=== PATIENT | female | born 1960 | race Caucasian/White ===

== ENCOUNTER → 2016-09-08 | Outpatient (CLI) | payer OTHER ==
--- NOTE | 2016-09-08 16:36 | BD ---
EXAMINATION TYPE: MG DEXA axial skeleton. DATE OF EXAM: 09/08/2016 3:28 PM COMPARISON: NONE CLINICAL HISTORY: 56-year-old female with disorder of bone, postmenopausal screening Height: 61 Weight: 170.2 FRAX RISK QUESTIONS: Alcohol (3 or more units per day): no Family History (Parent hip fracture): no Glucocorticoids (More than 3mos): no (Ex: prednisone, prednisolone, methylprednisolone, dexamethasone, and hydrocortisone). History of Fracture in Adulthood: yes Secondary Osteoporosis: 1. Type 1 Diabetes: no 2. Hyperthyroidism: no 3. Menopause before 45: no 4. Malnutrition: no 5. Chronic liver disease: no Rheumatoid Arthritis: no Current Tobacco Use: no RISK FACTORS HISTORY OF: Hip Fracture (Right/Left): no Spine Fracture: no History of Wrist Fracture: no Surgery to Spine/Hip(right/left)/Wrist (right/left): no Family History of Osteoporosis: yes Active: no Diet low in dairy products/other sources of calcium: yes Postmenopausal woman: hysterectomy 7 years ago Take estrogen and/or progesterone medications: yes/ estrodiol How lon Lost more than 2 inches in height since high school: no Frequent falls: no Adrenal Insufficiency: no MEDICATIONS: Thyroid Medications: synthroid 200mcg How Lon years Additional History: pt has had thyroid cancer 7 years ago EXAM MEASUREMENTS: Bone mineral densitometry was performed using the [employer] System. Bone mineral density as measured about the Lumbar spine is: ----- L1-L4(G/cm2): 1.110 T Score Values are as follows: ----- L2: -0.9 ----- L3: 0.0 ----- L4: -0.2 ----- L1-L4: -0.6 Bone mineral density has: increased 8.4 % since study of: 06.19.2013 Bone mineral density about the R hip (g/cm2): 0.883 Bone mineral density about the L hip (g/cm2): 0.973 T Score values are as follows: -----R Neck: -1.1 -----L Neck: -0.5 -----R Intertrochanter: -1.1 -----L Intertrochanter: -0.9 Bone mineral density has: increased 0.8 % since study of: 06.19.2013 IMPRESSION: Osteopenia as indicated by T score values in the lumbar spine and right hip. There is slightly increa sed risk for fracture and therapy can be considered. Rescreen in 2-5 years. NOTE: T-SCORE=SD OF THE YOUNG ADULT MEAN.
--- NOTE | 2016-09-09 14:36 | MM ---
Reason for exam: screening (asymptomatic). Last mammogram was performed 1 year and 2 months ago. History: Patient is postmenopausal and has history of other cancer at age 49. Family history of breast cancer in paternal grandmother at age 84. Taking estrogen for 5 years beginning at age 49. Taking other hormone for 2 years. Physical Findings: A clinical breast exam by your physician is recommended on an annual basis and results should be correlated with mammographic findings. MG Screening Mammo w CAD Bilateral CC and MLO view(s) were taken. Prior study comparison: July 03, 2015, bilateral MG screening mammo w CAD. July 12, 2014, left breast MG work up mamm w CAD LT. Finding: There is a 10 mm equal density (isodense) mass in the upper outer quadrant of the right breast. ASSESSMENT: Incomplete: need additional imaging evaluation, BI-RAD 0 RECOMMENDATION: Special view mammogram of the right breast. If lesion persists on supplemental views, image directed ultrasound is recommended. [facility] will attempt to contact patient to return for supplemental views and ultrasound if indicated.
== END ==
LOC: RADMAMWWP 14:50
PROVIDERS: ATTEND Obstetrics & Gynecology
DX: Z12.31 Encounter for screening mammogram for malignant neoplasm of breast (principal); M85.851 Other specified disorders of bone density and structure, right thigh; M85.88 Other specified disorders of bone density and structure, other site
CPT/HCPCS: 77080; G0202

== ENCOUNTER → 2016-09-17 | Outpatient (CLI) | payer OTHER ==
--- NOTE | 2016-09-20 08:19 | MM ---
Reason for exam: additional evaluation requested from abnormal screening. Last mammogram was performed less than 1 month ago. History: Patient is postmenopausal and has history of other cancer at age 49. Family history of breast cancer in paternal grandmother at age 84. Taking estrogen for 5 years beginning at age 49. Taking other hormone for 2 years. Physical Findings: Nurse did not find any significant physical abnormalities on exam. MG Work Up Mamm w CAD RT Spot compression CC and spot compression MLO view(s) were taken of the right breast. Prior study comparison: September 08, 2016, bilateral MG screening mammo w CAD. July 03, 2015, bilateral MG screening mammo w CAD. There are scattered fibroglandular densities. There is no discrete abnormality including area of concern. No significant new findings when compared with previous films. These results were verbally communicated with the patient and result sheet given to the patient on 09/17/16. ASSESSMENT: Benign, BI-RAD 2 RECOMMENDATION: Return to routine screening mammogram schedule for both breasts.
== END | disposition home or self-care (01) ==
LOC: RADMAMWWP 13:03
PROVIDERS: ATTEND Obstetrics & Gynecology
DX: R92.8 Other abnormal and inconclusive findings on diagnostic imaging of breast (principal)

== ENCOUNTER → 2017-10-03 | Outpatient (CLI) | payer OTHER ==
--- NOTE | 2017-10-04 08:57 | MM ---
Reason for exam: screening (asymptomatic). Last mammogram was performed 1 year and 1 month ago. History: Patient is postmenopausal and has history of other cancer at age 49. Family history of breast cancer in paternal grandmother at age 84. Taking estrogen for 5 years beginning at age 49. Taking other hormone for 2 years. Physical Findings: A clinical breast exam by your physician is recommended on an annual basis and results should be correlated with mammographic findings. MG Screening Mammo w CAD Bilateral CC and MLO view(s) were taken. Prior study comparison: September 17, 2016, right breast MG work up mamm w CAD RT. September 08, 2016, bilateral MG screening mammo w CAD. There are scattered fibroglandular densities. There is no discrete abnormality. No significant changes when compared with prior studies. ASSESSMENT: Negative, BI-RAD 1 RECOMMENDATION: Routine screening mammogram of both breasts in 1 year.
== END | disposition home or self-care (01) ==
LOC: RADMAMWWP 08:04
PROVIDERS: ATTEND Obstetrics & Gynecology
DX: Z12.31 Encounter for screening mammogram for malignant neoplasm of breast (principal)
CPT/HCPCS: 77067

== ENCOUNTER → 2018-10-20 | Outpatient (CLI) | payer OTHER ==
--- NOTE | 2018-10-24 08:32 | MM ---
Reason for exam: screening (asymptomatic). Last mammogram was performed 1 year and 1 month ago. History: Patient is postmenopausal and has history of other cancer at age 49. Family history of breast cancer in paternal grandmother at age 84. Taking estrogen for 5 years beginning at age 49. Taking other hormone for 2 years. Physical Findings: A clinical breast exam by your physician is recommended on an annual basis and results should be correlated with mammographic findings. MG Screening Mammo w CAD Bilateral CC and MLO view(s) were taken. Prior study comparison: October 03, 2017, bilateral MG screening mammo w CAD. September 17, 2016, right breast MG work up mamm w CAD RT. There are scattered fibroglandular densities. No significant changes when compared with prior studies. ASSESSMENT: Negative, BI-RAD 1 RECOMMENDATION: Routine screening mammogram of both breasts in 1 year.
== END | disposition home or self-care (01) ==
LOC: RADMAMWWP 12:35
PROVIDERS: ATTEND Obstetrics & Gynecology
DX: Z12.31 Encounter for screening mammogram for malignant neoplasm of breast (principal)
CPT/HCPCS: 77067

== ENCOUNTER → 2019-04-03 | Outpatient (CLI) | payer OTHER | END | disposition home or self-care (01) | LOC: CPPFTMAIN 13:21 | PROVIDERS: ATTEND Internal Medicine Rheumatology | DX: M34.9 Systemic sclerosis, unspecified (principal) | CPT/HCPCS: 94060; 94726; 94729 ==

== ENCOUNTER → 2020-04-01 | Outpatient (CLI) | payer OTHER ==
--- NOTE | 2020-04-01 17:29 | BD ---
EXAMINATION TYPE: Axial Bone Density DATE OF EXAM: 04/01/2020 COMPARISON: 09/08/2016 CLINICAL HISTORY: Height: 61 IN Weight: 163 LBS FRAX RISK QUESTIONS: Family History (Parent hip fracture): YES MOTHER RISK FACTORS HISTORY OF: Family History of Osteoporosis: YES 2 SISTERS Active: YES Diet low in dairy products/other sources of calcium: Postmenopausal woman: AGE 49 TOTAL HYST Take estrogen and/or progesterone medications: YES How long: SINCE AGE 49 MEDICATIONS: Thyroid Medications: YES Which medication: Synthroid How Lon YEARS Additional Medications: CALCIUM, VIT D, SYNTHROID, MELOXICAM,GABAPENTIN, PRILOSEC, CYMBALTA, ESTRADIO L, EVOXAC, DOXYCYCLINE, AMLODIPINE, ROSUVASTATIN, ISOSORB MONO E, IRON Additional History: THYROID CANCER WITH RADIOACTIVE IODINE 2009 EXAM MEASUREMENTS: Bone mineral densitometry was performed using the [employer] System. Bone mineral density as measured about the Lumbar spine is: ----- L1-L4(G/cm2): 1.073 T Score Values are as follows: ----- L2: -1.0 ----- L3: -0.3 ----- L4: -1.3 ----- L1-L4: -0.9 Bone mineral density has: Decreased -5.5% since study of: 09/08/2016 Bone mineral density about the R hip (g/cm2): 0.864 Bone mineral density about the L hip (g/cm2): 0.907 T Score values are as follows: -----R Neck: -1.3 -----L Neck: -0.9 -----R Total: -1.1 -----L Total: -0.8 Bone mineral density has: Decreased -2.9% since study of: 09/08/2016 IMPRESSION: Osteopenia (T Score between -2.5 and -1). There is slightly increased risk of fracture and the patient may be considered for treatment. Re-Screen 2-5 years. NOTE: T-SCORE=SD OF THE YOUNG ADULT MEAN.
--- NOTE | 2020-04-02 10:12 | MM ---
Reason for exam: screening (asymptomatic). Last mammogram was performed 1 year and 5 months ago. History: Patient is postmenopausal and has history of other cancer at age 49. Family history of breast cancer in paternal grandmother at age 84. Taking estrogen for 5 years beginning at age 49. Taking other hormone for 2 years. Physical Findings: A clinical breast exam by your physician is recommended on an annual basis and results should be correlated with mammographic findings. MG Screening Mammo w CAD Bilateral CC and MLO view(s) were taken. Prior study comparison: October 20, 2018, bilateral MG screening mammo w CAD. October 03, 2017, bilateral MG screening mammo w CAD. The breast tissue is heterogeneously dense. This may lower the sensitivity of mammography. There is chronic nodularity in the right breast. There is no dominant lesion. No significant changes when compared with prior studies. ASSESSMENT: Benign, BI-RAD 2 RECOMMENDATION: Routine screening mammogram of both breasts in 1 year.
== END | disposition home or self-care (01) ==
LOC: RADMAMWWP 08:52
PROVIDERS: ATTEND Obstetrics & Gynecology
DX: Z12.31 Encounter for screening mammogram for malignant neoplasm of breast (principal); M85.80 Other specified disorders of bone density and structure, unspecified site
CPT/HCPCS: 77067; 77080

== ENCOUNTER → 2020-12-09 | Outpatient (CLI) | payer OTHER ==
--- NOTE | 2020-12-10 08:15 | US ---
EXAMINATION TYPE: US venous doppler duplex LE LT DATE OF EXAM: 12/09/2020 6:04 PM COMPARISON: NONE CLINICAL HISTORY: Pain in Left Knee, Phlebitis. Pain and swelling within left leg after injury yester day 12/08/2020. No hx of DVT. Patient not taking blood thinners. SIDE PERFORMED: Left TECHNIQUE: The lower extremity deep venous system is examined utilizing real time linear array sonog noam with graded compression, doppler sonography and color-flow sonography. VESSELS IMAGED: Common Femoral Vein Deep Femoral Vein Greater Saphenous Vein * Femoral Vein Popliteal Vein Small Saphenous Vein * Proximal Calf Veins (* superficial vessels) Left Leg: No evidence of DVT in veins imaged at this time. IMPRESSION: 1. Left lower extremity ultrasound negative for deep venous thrombosis.
== END ==
LOC: RADUSWWP 17:28
PROVIDERS: ATTEND Orthopaedic Surgery
DX: I82.402 Acute embolism and thrombosis of unspecified deep veins of left lower extremity (principal); M17.12 Unilateral primary osteoarthritis, left knee

== ENCOUNTER → 2021-05-04 | Outpatient (CLI) | payer OTHER ==
--- NOTE | 2021-05-05 11:06 | MM ---
Reason for exam: screening (asymptomatic). Last mammogram was performed 1 year and 1 month ago. History: Patient is postmenopausal and has history of other cancer at age 49. Family history of breast cancer in paternal grandmother at age 84. Taking estrogen for 5 years beginning at age 49. Taking other hormone for 2 years. Physical Findings: A clinical breast exam by your physician is recommended on an annual basis and results should be correlated with mammographic findings. MG Screening Mammo w CAD Bilateral CC and MLO view(s) were taken. Prior study comparison: April 01, 2020, bilateral MG screening mammo w CAD. October 20, 2018, bilateral MG screening mammo w CAD. October 03, 2017, bilateral MG screening mammo w CAD. There are scattered fibroglandular densities. There is no discrete abnormality. ASSESSMENT: Negative, BI-RAD 1 RECOMMENDATION: Routine screening mammogram of both breasts in 1 year.
== END | disposition home or self-care (01) ==
LOC: RADMAMWWP 13:16
PROVIDERS: ATTEND Obstetrics & Gynecology
DX: Z12.31 Encounter for screening mammogram for malignant neoplasm of breast (principal)
CPT/HCPCS: 77067

== ENCOUNTER → 2022-05-05 | Outpatient (CLI) | payer BC ==
--- NOTE | 2022-05-06 08:46 | MM ---
Reason for Exam: Screening (asymptomatic). Last screening mammogram was performed 12 month(s) ago. Patient History: Menarche at age 13. First Full-Term at age 24. Left ovary removed at age 25. Right ovary removed at age 49. Hysterectomy at age 49. Postmenopausal. Patient has history of breast feeding. Other cancer, age 49. Currently using Estrogen, beginning at age 49 for 5 years. Paternal grandmother had breast cancer, age 84. Risk Values: Niurka 5 year model risk: 1.3%. NCI Lifetime model risk: 6.6%. Prior Study Comparison: 07/02/2014 Bilateral Screening Mammogram, [facility]. 07/12/2014 Left Diagnostic Mammogram, [facility]. 07/03/2015 Bilateral Screening Mammogram, [facility]. 09/08/2016 Bilateral Screening Mammogram, [facility]. 10/03/2017 Bilateral Screening Mammogram, [facility]. 10/20/2018 Bilateral Screening Mammogram, [facility]. 04/01/2020 Bilateral Screening Mammogram, [facility]. 05/04/2021 Bilateral Screening Mammogram, [facility]. Tissue Density: The breast tissue is heterogeneously dense. This may lower the sensitivity of mammography. Findings: Analyzed By CAD. There is no suspicious group of microcalcifications or new suspicious mass in either breast. No significant change from prior exams. Overall Assessment: Negative, BI-RAD 1 Management: Screening Mammogram of both breasts in 1 year. A clinical breast exam by your physician is recommended on an annual basis and results should be correlated with mammographic findings. Electronically signed and approved by: Antoni Joy D.O.
== END | disposition home or self-care (01) ==
LOC: RADMAMWWP 14:14
PROVIDERS: ATTEND Obstetrics & Gynecology
DX: Z12.31 Encounter for screening mammogram for malignant neoplasm of breast (principal)
CPT/HCPCS: 77067

== ENCOUNTER → 2023-05-09 | Outpatient (CLI) | payer BC ==
--- NOTE | 2023-05-09 14:45 | BD ---
EXAMINATION TYPE: Axial Bone Density DATE OF EXAM: 05/09/2023 CLINICAL HISTORY: 62 years old Female. ICD-10 CODE: M85.88 OSTEOPENIA Height: 61 Weight: 157.3 FRAX RISK QUESTIONS: Alcohol (3 or more units per day): no Family History (Parent hip fracture): no Glucocorticoids (More than 3mos): no History of Fracture in Adulthood: yes Secondary Osteoporosis: 1. Type 1 Diabetes: no 2. Hyperthyroidism: no 3. Menopause before 45: no 4. Malnutrition: no 5. Chronic liver disease: no Rheumatoid Arthritis: no Current Tobacco Use: no RISK FACTORS HISTORY OF: Hip Fracture (Right/Left): no Spine Fracture: no History of Wrist Fracture: no Surgery to Spine/Hip(right/left)/Wrist (right/left): no Family History of Osteoporosis: Sister Active: no Diet low in dairy products/other sources of calcium: yes Postmenopausal woman: yes Take estrogen and/or progesterone medications: Estradial How long: Past 23 years Lost more than 2 inches in height since high school: yes Frequent falls: yes Poor Health: yes Hyperparathyroidism: thyroid removed due to 2009 Adrenal Insufficiency: no MEDICATIONS: Prednisone or other steroids: no Thyroid Medications: Synthyroid How Long: since 2009 Osteoporosis Medications: no Additional Medications: Cholesterol meds, BP Meds, Reflux Meds, Vit D. Citracal, Additional History: EXAM MEASUREMENTS: Bone mineral densitometry was performed using the [employer] System. Bone mineral density as measured about the Lumbar spine is: ----- L1-L4(G/cm2): 0.972 T Score Values are as follows: ----- L1: -1.7 ----- L2: -1.7 ----- L3: -1.6 ----- L4: -2.0 ----- L1-L4: -1.7 Z Score Values are as follows: ----- L1: -0.6 ----- L2: -0.6 ----- L3: -0.5 ----- L4: -0.9 ----- L1-L4: -0.6 Bone mineral density has: decreased -9.4 % since study of: 04/01/2020 Bone mineral density about the R hip (g/cm2): 0.889 Bone mineral density about the L hip (g/cm2): 0.921 T Score values are as follows: -----R Neck: -0.6 -----L Neck: -0.4 -----R Total: -0.9 -----L Total: -0.7 Z Score values are as follows: -----R Neck: 0.6 -----L Neck: 0.7 -----R Total: -0.1 -----L Total: 0.2 Bone mineral density has: increased 1.8 % since study of: 04/01/2020 FRAX%s: The graph provided illustrates a 22.7% chance for a major osteoporotic fx and a 0.5% chance f or the hips probability for fx in 10 years time. IMPRESSION: Osteopenia (T Score between -2.5 and -1). There is slightly increased risk of fracture and the patient may be considered for treatment. Re-Screen 2-5 years. NOTE: T-SCORE=SD OF THE YOUNG ADULT MEAN.
--- NOTE | 2023-05-10 18:46 | MM ---
Reason for Exam: Screening (asymptomatic). Last screening mammogram was performed 12 month(s) ago. Patient History: Menarche at age 13. First Full-Term at age 24. Left ovary removed at age 25. Right ovary removed at age 49. Hysterectomy at age 49. Postmenopausal. Patient has history of breast feeding. Other cancer, age 49. Currently using Estrogen, beginning at age 49 for 5 years. Paternal grandmother had breast cancer, age 84. Risk Values: Niurka 5 year model risk: 1.3%. NCI Lifetime model risk: 6.4%. Prior Study Comparison: 04/01/2020 Bilateral Screening Mammogram, [facility]. 05/04/2021 Bilateral Screening Mammogram, [facility]. 05/05/2022 Bilateral MG screening mammo w CAD, [facility]. Tissue Density: There are scattered fibroglandular densities. Findings: Analyzed By CAD. Grouped microcalcifications posterior upper outer quadrant left breast appear new. Further magnification views are recommended. Otherwise, no significant change. Overall Assessment: Incomplete: need additional imaging evaluation, BI-RAD 0 Management: Special View Mammogram of the left breast. To include mag CC, mag lateral, and 3-D lateral views (including far posterior tissues). [facility] will attempt to contact patient to return for supplemental views and ultrasound if indicated. Electronically signed and approved by: David Melgoza M.D. Radiologist
== END | disposition home or self-care (01) ==
LOC: RADMAMWWP 13:02
PROVIDERS: ATTEND Obstetrics & Gynecology
DX: Z12.31 Encounter for screening mammogram for malignant neoplasm of breast (principal); M85.88 Other specified disorders of bone density and structure, other site; Z78.0 Asymptomatic menopausal state; Z80.3 Family history of malignant neoplasm of breast
CPT/HCPCS: 77067; 77080

== ENCOUNTER → 2023-05-23 | Outpatient (CLI) | payer BC ==
--- NOTE | 2023-05-23 13:55 | MM ---
Reason for Exam: Additional evaluation requested from abnormal screening. Last screening mammogram was performed less than 1 month ago. Patient History: Menarche at age 13. First Full-Term at age 24. Left ovary removed at age 25. Right ovary removed at age 49. Hysterectomy at age 49. Postmenopausal. Patient has history of breast feeding. Other cancer, age 49. Currently using Estrogen, beginning at age 49 for 5 years. Paternal grandmother had breast cancer, age 84. Risk Values: Niurka 5 year model risk: 1.3%. NCI Lifetime model risk: 6.4%. Prior Study Comparison: 05/04/2021 Bilateral Screening Mammogram, [facility]. 05/05/2022 Bilateral MG screening mammo w CAD, [facility]. 05/09/2023 Bilateral MG screening mammo w CAD, [facility]. Tissue Density: Left: The breast tissue is heterogeneously dense. This may lower the sensitivity of mammography. Findings: Analyzed By CAD. Far posteriorly the upper outer quadrant left breast approximately 9 cm from the nipple there is an indeterminate heterogenous cluster of microcalcifications measuring 4 mm x 2 mm. Tissue diagnosis is recommended. Overall Assessment: Suspicious, BI-RAD 4 Management: Stereotactic Core Biopsy of the left breast. . Results were given to the patient verbally at the time of exam. Patient should continue monthly self-breast exams. A clinical breast exam by your physician is recommended on an annual basis. This exam should not preclude additional follow-up of suspicious palpable abnormalities. Note on Niurka scores and lifetime risk: 1. A Niurka score greater than 3% is considered moderate risk. If this is the case, consider specialist referral to assess eligibility for a risk reducing agent. 2. If overall lifetime risk for the development of breast cancer is 20% or higher, the patient may qualify for future screening with alternating mammogram and breast MRI. Electronically signed and approved by: Rocco Smith M.D. Radiologis
== END | disposition home or self-care (01) ==
LOC: RADMAMWWP 13:03
PROVIDERS: ATTEND Obstetrics & Gynecology
DX: R92.332 Mammographic heterogeneous density, left breast (principal); Z80.3 Family history of malignant neoplasm of breast; Z78.0 Asymptomatic menopausal state
CPT/HCPCS: 77061; 77065

== ENCOUNTER → 2023-05-30 | Day surgery (SDC) | payer BC ==
[2023-05-30 11:38] VITALS: BP 125/72; PULSE 71; RESP 13; TEMP 98.2
--- NOTE | 2023-06-06 11:20 | MM ---
Risk Values: Niurka 5 year model risk: 1.3%. NCI Lifetime model risk: 6.4%. Prior Study Comparison: 05/05/2022 Bilateral MG screening mammo w CAD, [facility]. 05/09/2023 Bilateral MG screening mammo w CAD, [facility]. 05/23/2023 Left MG 3D work up w/cad , [facility]. Pathology Description: Approach: CC FA Needle Type: Eviva Cores: 3 Skin Nicks: 1 Gauge: 9 The calcificationswithin the lefteast were targeted by the undersigned. Procedure was performed by the undersigned. Informed consent was obtained and all of the patients questions were answered. The standard sterile technique was utilized and appropriate local anesthesia was obtained with 1% lidocaine. Mammotome probe was advanced and multiple core samples were obtained and sent to pathology for interpretation. Microclip marker was deployed at the site of biopsy. Post procedural mammogram demonstrates appropriate deployment of radiopaque clip marker. The patient tolerated the procedure well and left the department in stable condition. Pathology results are pending. Impression: Successful stereotactic core biopsy left breast. Pathology Results: Result: Benign, Fibroadenomatoid hyperplasia. LEFT BREAST, STEREOTACTIC NEEDLE CORE BIOPSY: Fibroadenoma/fibroadenomatoid hyperplasia with calcifications and background fibrocystic changes. Overall Assessment: Benign Management: Diagnostic Mammogram of the left breast in 6 months. Electronically signed and approved by: Rocco Smith M.D. Radiologis
== END ==
LOC: RADMAMWWP 10:02
PROVIDERS: ATTEND Surgery
DX: D24.2 Benign neoplasm of left breast (principal)
CPT/HCPCS: 88305; 19081; J2001

== ENCOUNTER → 2023-12-14 | Outpatient (CLI) | payer BC ==
--- NOTE | 2023-12-14 10:17 | MM ---
Reason for Exam: Follow-up at short interval from prior study. Last screening mammogram was performed 8 month(s) ago. Patient History: Menarche at age 13. First Full-Term at age 24. Left ovary removed at age 25. Right ovary removed at age 49. Hysterectomy at age 49. Postmenopausal. Patient has history of breast feeding. Other cancer, age 49. Previous Hyperplasia w/o Atypia at age 62. Currently using Estrogen, beginning at age 49 for 5 years. 05/30/2023, Benign MG stereo VAD BX LT on the left side. Paternal grandmother had breast cancer, age 84. Risk Values: Niurka 5 year model risk: 1.6%. NCI Lifetime model risk: 7.3%. Prior Study Comparison: 05/05/2022 Bilateral MG screening mammo w CAD, [facility]. 05/09/2023 Bilateral MG screening mammo w CAD, [facility]. 05/23/2023 Left MG 3D work up w/cad LT, [facility]. Tissue Density: Left: There are scattered areas of fibroglandular density. Findings: Analyzed By CAD. Microclip posterior outer aspect left breast from recent biopsy 6 months ago. No significant change otherwise from prior exams. Overall Assessment: Benign, BI-RAD 2 Management: Screening Mammogram of both breasts in 5 months. Back on schedule. Results were given to the patient verbally at the time of exam. Patient should continue monthly self-breast exams. A clinical breast exam by your physician is recommended on an annual basis. This exam should not preclude additional follow-up of suspicious palpable abnormalities. Note on Niurka scores and lifetime risk: 1. A Niurka score greater than 3% is considered moderate risk. If this is the case, consider specialist referral to assess eligibility for a risk reducing agent. 2. If overall lifetime risk for the development of breast cancer is 20% or higher, the patient may qualify for future screening with alternating mammogram and breast MRI. Electronically signed and approved by: David Melgoza M.D. Radiologist
== END | disposition home or self-care (01) ==
LOC: RADMAMWWP 09:45
PROVIDERS: ATTEND Surgery
DX: R92.322 Mammographic fibroglandular density, left breast (principal); Z80.3 Family history of malignant neoplasm of breast; Z78.0 Asymptomatic menopausal state
CPT/HCPCS: 77061; 77065

== ENCOUNTER → 2024-05-16 | Outpatient (CLI) | payer BC ==
--- NOTE | 2024-05-24 11:50 | MM ---
Reason for Exam: Screening (asymptomatic). Last mammogram was performed 1 year(s) and 1 month(s) ago. Patient History: Menarche at age 13. First Full-Term at age 24. Left ovary removed at age 25. Right ovary removed at age 49. Hysterectomy at age 49. Postmenopausal. Patient has history of breast feeding. Other cancer, age 49. Previous Hyperplasia w/o Atypia at age 62. Currently using Estrogen, beginning at age 49 for 5 years. 05/30/2023, Benign MG stereo VAD BX LT on the left side. Paternal grandmother had breast cancer, age 84. Risk Values: Niurka 5 year model risk: 1.6%. NCI Lifetime model risk: 7.3%. Prior Study Comparison: 05/09/2023 Bilateral MG screening mammo w CAD, [facility]. 05/23/2023 Left MG 3D work up w/cad LT, [facility]. 12/14/2023 Left MG 3D diag mammo w/cad LT, [facility]. Tissue Density: There are scattered areas of fibroglandular density. Findings: Analyzed By CAD. Right breast: There is no suspicious group of microcalcifications or new suspicious mass. Left breast: There is no suspicious group of microcalcifications or new suspicious mass. Overall Assessment: Negative, BI-RAD 1 Management: Screening Mammogram of both breasts in [address] [facility] will attempt to contact patient to return for supplemental views and ultrasound if indicated. Patient should continue monthly self-breast exams. A clinical breast exam by your physician is recommended on an annual basis. This exam should not preclude additional follow-up of suspicious palpable abnormalities. Note on Niurka scores and lifetime risk: 1. A Niurka score greater than 3% is considered moderate risk. If this is the case, consider specialist referral to assess eligibility for a risk reducing agent. 2. If overall lifetime risk for the development of breast cancer is 20% or higher, the patient may qualify for future screening with alternating mammogram and breast MRI. [facility], , 05/24/2024 11:45 AM. Electronically signed and approved by: Justin Scott DO
== END | disposition home or self-care (01) ==
LOC: RADMAMWWP 10:04
PROVIDERS: ATTEND Surgery
DX: Z12.31 Encounter for screening mammogram for malignant neoplasm of breast (principal); R92.323 Mammographic fibroglandular density, bilateral breasts; Z78.0 Asymptomatic menopausal state; Z80.3 Family history of malignant neoplasm of breast; Z90.722 Acquired absence of ovaries, bilateral
CPT/HCPCS: 77067

== ENCOUNTER 2024-06-14 11:14 | Day surgery (SDC) | payer BC ==
[~2024-06-14 11:14] MED LIST: LACTATED RINGERS 1,000 ML IV SCH
--- NOTE | 2024-06-14 12:01 | CT ---
EXAMINATION TYPE: CT Chest [facility] protocol DATE OF EXAM: 06/14/2024 COMPARISON: None CLINICAL INDICATION: Female, 63 years old with history of R91.1 Solitary Pulmonary Nodule; PH[facility], preop /lung mass TECHNIQUE: CT scan of the thorax is performed without IV contrast. CT DLP: 227.[address] CTDI: mGy Automated exposure control for dose reduction was used. FINDINGS: There is a 13.2 mm spiculated mass in the left upper lobe highly suspicious for neoplasm. There is a secondary 7.2 mm nodular mass in the posterior left upper lobe. There are mild chronic changes with mild interstitial reticulation in the subpleural parenchymal lung of the lung bases. There is mild to moderate bronchiectasis in the lower lobes. There is no airspace consolidation. There is no pleural effusion. The great vessels chest are normal as no mediastinal, hilar or axillary adenopathy. There is mild to moderate cardiomegaly. Limited scanning through the upper abdomen reveals multiple well-circumscribed low density lesions wi thin the liver most likely representing simple cysts. There is cholecystectomy. The osseous structures are intact. IMPRESSION: 1. 2 left upper lobe pulmonary nodules that are highly suspicious for neoplasm. 2. Chronic interstitial lung changes with bronchiectasis predominantly within the lower lobes. 3. [id number] cardiomegaly. 4. No acute cardiopulmonary disease. [facility], , 06/14/2024 11:59 AM
[2024-06-14] MEDS: LACTATED RINGERS 1,000 ML IV SCH (12:22)
[2024-06-14] MEDS: IV FLUID CONTINUATION 1,000 ML IV ONE (12:22)
[2024-06-14] MEDS ORDERED: GLYCOPYRROLATE 0.2 MG/ML 2 ML VIAL ONE (12:25)
[2024-06-14] MEDS ORDERED: fentaNYL (PF) 50 MCG/ML 2 ML AMP ONE (12:25)
[2024-06-14] MEDS ORDERED: PROPOFOL 10 MG/ML 20 ML VIAL IV ONE (12:25)
[2024-06-14] MEDS ORDERED: MIDAZOLAM 2 MG/2 ML VIAL ONE (12:25)
[2024-06-14] MEDS ORDERED: SUCCINYLCHOLINE CHLORIDE 200 MG/10 ML VIAL IV ONE (12:25)
[2024-06-14] MEDS ORDERED: NEOSTIGMINE 1 MG/ML 10 ML VIAL ONE (12:25)
[2024-06-14] MEDS ORDERED: LIDOCAINE 1% INJ 10MG/ML (20 ML MDV) ONE (12:25)
[2024-06-14] MEDS ORDERED: ROCURONIUM 10 MG/ML (5 ML VIAL) IV ONE (12:25)
[2024-06-14] MEDS: LACTATED RINGERS 1,000 ML IV ONE ×2 (14:35→14:44)
--- NOTE | 2024-06-14 14:54 | P.PCN ---
Date of Procedure: 06/14/24 Operative Findings: Preoperative Diagnosis: Left upper lobe pulmonary nodule, 15 mm in size Mediastinal lymphadenopathy Postoperative Diagnosis: Left upper lobe pulmonary nodule Mediastinal lymphadenopathy Procedure(s) Performed: Flexible bronchoscopy Robotic-assisted bronchoscopy and addition to radial ultrasound evaluation of the left upper lobe pulmonary nodule Robotic-assisted transbronchial transbronchial needle aspirate, transbronchial biopsies and bronchoalveolar lavage of the left upper lobe pulmonary nodule Endobronchial ultrasound Transbronchial needle aspirate, paratracheal lymph node Anesthesia: MARIKAA Surgeon: Sherie Sumner Estimated Blood Loss (ml): 0 Pathology: other Condition: stable Disposition: same day Operative Findings: A physical exam was performed. Informed consent was obtained from the patient after explaining all the risks (pneumothorax, life threatening bleeding, infection and adverse effects due to medications), benefits and alternatives to the procedure which the patient appeared to understand and so stated. The patient was connected to the monitoring devices. General anesthesia was induced and the patient was intubated by anesthesia. A final timeout was performed and the procedure confirmed by the attending staff bronchoscopist. The bronchoscope was inserted and the airway examined. Airway examination shows that the distal trachea, Right upper lobe and middle lobe and lower lobe bronchi was all within normal limits. Patient left mainstem bronchus is within normal limits. Examination of left lower lobe was within normal limits. The left upper lobe bronchus and the lingular segment was also patent within normal limits. The flexible bronchoscope was removed and the robotic bronchoscope was inserted. Registration was completed. I next guided the robotic bronchoscope using the navigation system into the left upper lobe pulmonary nodule and the navigation was done through the apical posterior segment of the left upper lobe. Once in proper position, the bronchoscope was frozen. The radial EBUS probe was placed through the bronchoscope and confirmed abnormal u/s images vs normal lung. A needle was placed through the working channel and another fluoroscopic guidance, we sampled the area in the left upper lobe where the opacity was present. We then used a clot biopsy pattern with ultrasound confirmation for 2 additional passes with the needle. Following that, a forceps were next introduced through working channel and extended the appropriate distance and 2 transbronchial biopsies were performed using fluoroscopic guidance. The u/s probe was then reinserted to confirm location. When confirmed this process was repeated for a total of 8 transbronchial biopsies. Following that, a total of 20 cc of saline was infused into the right upper lobe and approximately 5 cc of saline was aspirated and the bronchioloalveolar lavage was sent for cytologic evaluation. Following that, I am bronchoscope was removed. The endobronchial ultrasound was inserted and a full evaluation of the mediastinal lymph nodes was done. Upon careful investigation with endobronchial ultrasound, a 16 x 10 mm anterior tracheal lymph node was identified. Using a 22-gauge position needle, transbronchial needle aspirate of the paratracheal station was done and a total of 5 passes was taken without any complications. Endobronchial ultrasound was removed. The rest of the mediastinal stations showed no significant pathologic mediastinal lymphadenopathy. Flex. bronchoscope was inserted and regular suctioning was done. At the completion of the procedure, no residual secretions or bloody material within the airway. The bronchoscope was removed. The patient was extubated. FINDINGS: 1. The airways appeared normal 2 Successful navigation, ultrasonographic identification, and biopsies of left upper lobe pulmonary nodule 3. The the radial ultrasound was weak and eccentric 4. Endobronchial ultrasound with biopsy of the paratracheal lymph node RECOMMENDATIONS: Await pathology and cytology results The referring physician will be alerted to the results when available. The patient was advised to follow up with the referring physician with the biopsy results Patient will be called with results.
[2024-06-14 15:01] VITALS: RESP 16; TEMP 97
--- NOTE | 2024-06-14 15:54 | FL ---
EXAMINATION TYPE: FL bronchoscopy DATE OF EXAM: 06/14/2024 2:24 PM COMPARISON: Pre Operative Images if available both CT/MRI or plain film CLINICAL INDICATION: Female, 63 years old with history of BRONCHOSCOPY WITH ION ROBOT; TECHNIQUE: FL bronchoscopy, multiple fluoroscopic images provided for procedure. Total fluoroscopy time: 4 min 18 seconds Total submitted images to PACS: 2 DAP: 15.345 mGym2 Gycm2 uGym2 cGycm2 or equivalent. FINDINGS: ION bronchoscopy images demonstrate bronchoscope terminating in the lung. No immediate complications identified, no pneumothorax identified. IMPRESSION: 1. No evidence for intraoperative complication. 2. Please see the operative/procedural note for further details. [facility], , 06/14/2024 3:52 PM
--- NOTE | 2024-06-14 15:55 | XR ---
EXAMINATION TYPE: XR chest 1V portable DATE OF EXAM: 06/14/2024 3:04 PM COMPARISON: Chest radiographs from 06/14/2024 CLINICAL INDICATION: Female, 63 years old with history of BRONCHOSCOPY; [facility] TECHNIQUE: XR chest 1V portable Frontal view of the chest. FINDINGS: Lungs/Pleura: Prominent interstitial lung markings are seen scattered throughout the lungs. No eviden ce of focal consolidation, pneumothorax or pleural effusion. Pulmonary vascularity: Unremarkable. Heart/mediastinum: Cardiomediastinal silhouette is enlarged. Musculoskeletal: No acute osseous pathology. IMPRESSION: No evidence for pneumothorax. Scattered interstitial opacities throughout the lungs. [facility], , 06/14/2024 3:53 PM
[2024-06-14 16:07] VITALS: BP 118/70; PULSE 85
== END 2024-06-14 16:35 | disposition home or self-care (01) ==
LOC: ORWHC2ENDO 11:14
PROVIDERS: ATTEND Internal Medicine Critical Care Medicine
DX: R91.1 Solitary pulmonary nodule (principal); R59.0 Localized enlarged lymph nodes; J84.112 Idiopathic pulmonary fibrosis; J44.9 Chronic obstructive pulmonary disease, unspecified; I11.9 Hypertensive heart disease without heart failure; E78.5 Hyperlipidemia, unspecified; M79.7 Fibromyalgia; L94.0 Localized scleroderma [morphea]; I73.00 Raynaud's syndrome without gangrene; M19.90 Unspecified osteoarthritis, unspecified site; F41.9 Anxiety disorder, unspecified; F17.290 Nicotine dependence, other tobacco product, uncomplicated; Z79.2 Long term (current) use of antibiotics; Z79.890 Hormone replacement therapy; Z79.899 Other long term (current) drug therapy; Z88.1 Allergy status to other antibiotic agents; Z88.0 Allergy status to penicillin
CPT/HCPCS: 87798 ×3; 87496; 87498; 87529; 88108; 88305; 88173; 87502; 87634; 87070; 87205; 87116; 87102; 87206; 87635; 71045; 71250; 31628; 31629; 31624; 31627; 31652; 31654; J2250; J0330; J2710; J2003; J3010; J2704; J1596; S2900

== ENCOUNTER 2024-06-15 09:46 | Inpatient (IN) | payer BC ==
--- NOTE | 2024-06-15 10:12 | ED ---
General Adult HPI - General Chief complaint: Altered Mental Status Stated complaint: Seizure Time Seen by Provider: 06/15/24 09:49 Source: family, EMS, RN notes reviewed Mode of arrival: EMS Limitations: no limitations - History of Present Illness Initial comments: Patient is a 63-year-old female presenting to the emergency department with reported seizure. Patient did have lung biopsy done with Dr. Vazquez and yesterday. There was some bleeding that he reported to the . Yesterday evening patient was restless. Patient does get like that occasionally when she gets sick. History is taken from as patient is a poor historian and is restless. Today prior to arrival patient became less responsive and then had a generalized tonic-clonic seizure lasting around 3 minutes. Patient has been confused and restless since that time. History from patient is very limited and she has no complaints. - Related Data Home Medications Medication Instructions Recorded Confirmed Cevimeline [Evoxac] 30 mg PO BID 05/25/23 06/14/24 DULoxetine HCL [Cymbalta] 60 mg PO DAILY 05/25/23 06/14/24 Doxycycline [Vibramycin] 50 mg PO Q12HR 05/25/23 06/14/24 Gabapentin 600 mg PO TID 05/25/23 06/14/24 Levothyroxine Sodium [Synthroid] 137 mcg PO DAILY 05/25/23 06/14/24 Metoprolol Succinate [Toprol XL] 100 mg PO DAILY 05/25/23 06/14/24 Omeprazole 20 mg PO BID 05/25/23 06/14/24 estradioL [Estrace] 0.05 mg PO DAILY 05/25/23 06/14/24 mycophenolate mofetiL [Cellcept] 500 mg PO BID 05/25/23 06/14/24 Aspirin 81 mg PO DAILY 06/06/24 06/14/24 Evolocumab [Repatha Sureclick] 140 mg SQ Q14D 06/06/24 06/14/24 Isosorbide Mononitrate ER [Imdur] 30 mg PO DAILY 06/06/24 06/14/24 dilTIAZem HCL [Cardizem LA] 180 mg PO DAILY 06/06/24 06/14/24 Unk Citracal 1 tab PO DAILY 06/08/24 06/14/24 Acetaminophen [Tylenol Arthritis] 650 mg PO DIRECTED PRN 06/08/24 06/14/24 Coq10 1 tab PO DAILY 06/08/24 06/14/24 Ferrous Sulfate [Feosol] 325 mg PO DAILY 06/08/24 06/14/24 Metrogel Gel 1 applic TOPICAL DAILY 06/08/24 06/14/24 Multi Vitamin 1 tab PO DAILY 06/08/24 06/14/24 Unk B Complex 1 tab PO DAILY 06/08/24 06/14/24 Unk Probiotic 1 tab PO DAILY 06/08/24 06/14/24 Unk Vitamin D3 1 tab PO DAILY 06/08/24 06/14/24 traMADol HCL 50 mg PO TID PRN 06/08/24 06/14/24 Allergies Allergy/AdvReac Type Severity Reaction Status Date / Time amoxicillin Allergy Rash/Hives Verified 06/14/24 11:55 clavulanic acid Allergy Rash/Hives Verified 06/14/24 11:55 [From Augmentin] clindamycin Allergy Rash/Hives Verified 06/14/24 11:55 minocycline Allergy Rash/Hives Verified 06/14/24 11:55 Review of Systems ROS Statement: Those systems with pertinent positive or pertinent negative responses have been documented in the HPI. ROS Other: All systems not noted in ROS Statement are negative. Limitations: ROS unobtainable due to patients medical condition Past Medical History Past Medical History: Cancer, Fibromyalgia, GERD/Reflux, Hyperlipidemia, Hypertension, Osteoarthritis (OA), Thyroid Disorder Additional Past Medical History / Comment(s): Sjogrens syndrome Scleroderma, raynauds syndrome, diverticulitis. enlarged lymph node on front of trachea and spot on left upper lobe.SOB with exertion. issues with swallowing at time. thyroid cancer ansd melanoma.squamous cell ( all removed). dermatitis on neck. History of Any Multi-Drug Resistant Organisms: None Reported Past Surgical History: Bowel Resection, Cholecystectomy, Hysterectomy, T onsillectomy, Tubal Ligation Additional Past Surgical History / Comment(s): December 2022- sacrocolpopexy and retro pubic sling, urethral sling. [place], Bowel resection, Thyroidectomy, melanoma surgical excision, squamous cell. detached retina surgery. lt breast bx. bilat oophorectomy. Past Anesthesia/Blood Transfusion Reactions: No Reported Reaction Smoking Status: Former smoker, Vaper - Past Family History Father Family Medical History: Cancer Additional Family Medical History / Comment(s): colon cancer - Mother Family Medical History: Cancer Additional Family Medical History / Comment(s): colon cancer- Sister(s) Family Medical History: Cancer Additional Family Medical History / Comment(s): lung cancer - . another sister aortic aneurysm Brother(s) Family Medical History: AFIB, AICD/Pacemaker General Exam Limitations: no limitations General appearance: alert, other (Patient is restless and difficult to answer or follow commands) Head exam: Present: normocephalic Eye exam: Present: normal appearance, PERRL, EOMI ENT exam: Present: normal oropharynx Neck exam: Present: normal inspection. Absent: tenderness, meningismus Respiratory exam: Present: normal lung sounds bilaterally Cardiovascular Exam: Present: tachycardia GI/Abdominal exam: Present: soft. Absent: distended, tenderness Extremities exam: Present: normal inspection, full ROM. Absent: tenderness Neurological exam: Present: alert, CN II-XII intact. Absent: motor sensory deficit Expanded Neurological exam: Present: protecting the airway Patient oriented to: Present: person, place. Absent: time (States 1923) Motor strength exam: RUE: 5, LUE: 5, RLE: 5, LLE: 5 Eye Response: (4) open spontaneously Motor Response: (6) obeys commands Verbal Response: (4) confused conversation Psychiatric exam: Present: other (Patient is restless) Skin exam: Present: normal color Course Vital Signs 06/15/24 06/15/24 06/15/24 09:53 10:04 10:30 Temperature 98.9 F 97.5 F L Pulse Rate 152 H 130 H Respiratory 22 22 Rate Blood Pressure 127/96 O2 Sat by Pulse 88 L 91 L Oximetry 06/15/24 06/15/24 11:04 12:25 Temperature 100.8 F H 99.9 F H Pulse Rate 137 H Respiratory 31 H Rate Blood Pressure 147/79 O2 Sat by Pulse 97 Oximetry EKG Findings - EKG Results: EKG: interpreted by AMADO (Right bundle branch block. Right axis. T wave inversion V4 V5.), sinus rhythm EKG shows: tachycardia Medical Decision Making - Medical Decision Making Was pt. sent in by a medical professional or institution (, PA, HEAVY MACHINERY OPERATOR, urgent care, hospital, or senior living...) When possible be specific @ -No Did you speak to anyone other than the patient for history (EMS, parent, family, police, friend...)? What history was obtained from this source @ -EMS and are present and help provide history as patient is restless and somewhat a poor historian Did you review nursing and triage notes (agree or disagree)? Why? @ -I reviewed and agree with nursing and triage notes Were old charts reviewed (outside hosp., previous admission, EMS record, old EKG, old radiological studies, urgent care reports/EKG's, senior living records)? Report findings @ -Bronchoscopy from yesterday report reviewed Differential Diagnosis (chest pain, altered mental status, abdominal pain women, abdominal pain men, vaginal bleeding, weakness, fever, dyspnea, syncope, headache, dizziness, GI bleed, back pain, seizure, CVA, palpatations, mental health, musculoskeletal)? @ -Differential Altered Mental Status: Hypoglycemia, DKA, hypercapnia, ETOH, overdose, CO poisoning, trauma, myxedema coma, HTN encephalopathy, infection, encephalitis, psychosis, intercranial hemorrhage, hepatic encephalopathy, meningitis, CVA, this is not meant to be an all-inclusive list EKG interpreted by me (3pts min.). @ -As above X-rays interpreted by me (1pt min.). @ -Chest x-ray shows some nonspecific interstitial changes CT interpreted by me (1pt min.). @ -CT brain and cervical spine without acute abnormality U/S interpreted by me (1pt. min.). @ -None done What testing was considered but not performed or refused? (CT, X-rays, U/S, labs)? Why? @ -None What meds were considered but not given or refused? Why? @ -None Did you discuss the management of the patient with other professionals (professionals i.e. DrUmer, PA, HEAVY MACHINERY OPERATOR, lab, RT, psych nurse, community mental health social worker, damage adjuster, teacher, optics technical officer, case packer)? Give summary @ -Case discussed with Dr. Mendez who will admit covering Dr. Quach. Dr. Kaplan has also been paged Was smoking cessation discussed for >3mins.? @ -No Was critical care preformed (if so, how long)? @ -31 minutes critical care time Were there social determinants of health that impacted care today? How? (Homelessness, low income, unemployed, alcoholism, drug addiction, transport ation, low edu. Level, literacy, decrease access to med. care, fci, rehab)? @ -No Was there de-escalation of care discussed even if they declined (Discuss DNR or withdrawal of care, Hospice)? DNR status @ -No What co-morbidities impacted this encounter? (DM, HTN, Smoking, COPD, CAD, Cancer, CVA, ARF, Chemo, Hep., AIDS, mental health diagnosis, sleep apnea, morbid obesity)? @ -History of Sojourn syndrome. Also history of recent bronchoscopy and biopsy Was patient admitted / discharged? Hospital course, mention meds given and route, prescriptions, significant lab abnormalities, going to OR and other pertinent info. @ -Patient presents with new onset seizure. Borderline temperature. There is concern for possible sepsis diagnosed at 12:40 PM. Blood culture and lactic acid and IV antibiotics have all been ordered. Fluids at 130. Patient will be admitted with consults for pulmonary and neurology. Patient reevaluated. Patient is mildly restless still. Patient is oriented to name and place and still states the year is 1923. Patient can follow simple commands. Patient and family updated on results and plan. Admission orders written. Undiagnosed new problem with uncertain prognosis? @ -Patient does have seizure and borderline temperature elevation. Exact diagnosis and cause of this is unclear with uncertain prognosis. Drug Therapy requiring intensive monitoring for toxicity (Heparin, Nitro, Insulin, Cardizem)? @ -No Were any procedures done? @ -No Diagnosis/symptom? @ -New onset seizure Acute, or Chronic, or Acute on Chronic? @ -Acute Uncomplicated (without systemic symptoms) or Complicated (systemic symptoms)? @ -Default Side effects of treatment? @ -No Exacerbation, Progression, or Severe Exacerbation? @ -No Poses a threat to life or bodily function? How? (Chest pain, [place], [place], pneumonia, PE, COPD, DKA, ARF, appy, cholecystitis, CVA, Diverticulitis, Homicidal, Suicidal, threat to staff... and all critical care pts) @ -No - Lab Data Result diagrams: 06/15/24 10:12 06/15/24 10:12 Lab Results 06/15/24 06/15/24 06/15/24 Range/Units 10:12 10:12 10:18 WBC 12.5 H (3.8-10.6) k/uL RBC 4.50 (3.80-5.40) m/uL Hgb 11.5 (11.4-16.0) gm/dL Hct 37.2 (34.0-46.0) % MCV 82.7 (80.0-100.0) fL MCH 25.5 (25.0-35.0) pg MCHC 30.9 L (31.0-37.0) g/dL RDW 16.2 H (11.5-15.5) % Plt Count 331 (150-450) k/uL MPV 7.5 Neutrophils % 85 % Lymphocytes % 9 % Monocytes % 4 % Eosinophils % 0 % Basophils % 1 % Neutrophils # 10.7 H (1.3-7.7) k/uL Lymphocytes # 1.2 (1.0-4.8) k/uL Monocytes # 0.4 (0-1.0) k/uL Eosinophils # 0.0 (0-0.7) k/uL Basophils # 0.1 (0-0.2) k/uL Hypochromasia Slight Anisocytosis Slight Sodium 135 L (137-145) mmol/L Potassium 3.8 (3.5-5.1) mmol/L Chloride 100 (98-107) mmol/L Carbon Dioxide 21 L (22-30) mmol/L Anion Gap 14 mmol/L BUN 5 L (7-17) mg/dL Creatinine 0.64 (0.52-1.04) mg/dL Est GFR (CKD-EPI)AfAm >90 (>60 ml/min/1.73 sqM) Est GFR (CKD-EPI)NonAf >90 (>60 ml/min/1.73 sqM) Glucose 153 H (74-99) mg/dL POC Glucose (mg/dL) 145 H (70-110) mg/dL POC Glu Urban Planner ID Mckenzie Paul Calcium 9.2 (8.4-10.2) mg/dL Magnesium 1.4 L (1.6-2.3) mg/dL Total Bilirubin 0.5 (0.2-1.3) mg/dL AST 54 H (14-36) U/L ALT 41 H (4-34) U/L Alkaline Phosphatase 83 (38-126) U/L Total Protein 7.8 (6.3-8.2) g/dL Albumin 4.5 (3.5-5.0) g/dL Urine Color Urine Appearance (Clear) Urine pH (5.0-8.0) Ur Specific [place] (1.001-1.035) Urine Protein (Negative) Urine Glucose (UA) (Negative) Urine Ketones (Negative) Urine Blood (Negative) Urine Nitrite (Negative) Urine Bilirubin (Negative) Urine Urobilinogen (<2.0) mg/dL Ur Leukocyte Esterase (Negative) Urine RBC (0-5) /hpf Urine WBC (0-5) /hpf Ur Squamous Epith Cells (0-4) /hpf Urine Bacteria (None) /hpf Urine Mucus (None) /hpf 06/15/24 06/15/24 Range/Units 10:30 12:40 WBC (3.8-10.6) k/uL RBC (3.80-5.40) m/uL Hgb (11.4-16.0) gm/dL Hct (34.0-46.0) % MCV (80.0-100.0) fL MCH (25.0-35.0) pg MCHC (31.0-37.0) g/dL RDW (11.5-15.5) % Plt Count (150-450) k/uL MPV Neutrophils % % Lymphocytes % % Monocytes % % Eosinophils % % Basophils % % Neutrophils # (1.3-7.7) k/uL Lymphocytes # (1.0-4.8) k/uL Monocytes # (0-1.0) k/uL Eosinophils # (0-0.7) k/uL Basophils # (0-0.2) k/uL Hypochromasia Anisocytosis Sodium (137-145) mmol/L Potassium (3.5-5.1) mmol/L Chloride (98-107) mmol/L Carbon Dioxide (22-30) mmol/L Anion Gap mmol/L BUN (7-17) mg/dL Creatinine (0.52-1.04) mg/dL Est GFR (CKD-EPI)AfAm (>60 ml/min/1.73 sqM) Est GFR (CKD-EPI)NonAf (>60 ml/min/1.73 sqM) Glucose (74-99) mg/dL POC Glucose (mg/dL) 117 H (70-110) mg/dL POC Glu Urban Planner ID Trav Bermudez Calcium (8.4-10.2) mg/dL Magnesium (1.6-2.3) mg/dL Total Bilirubin (0.2-1.3) mg/dL AST (14-36) U/L ALT (4-34) U/L Alkaline Phosphatase (38-126) U/L Total Protein (6.3-8.2) g/dL Albumin (3.5-5.0) g/dL Urine Color Colorless Urine Appearance Clear (Clear) Urine pH 5.5 (5.0-8.0) Ur Specific [place] 1.017 (1.001-1.035) Urine Protein 1+ H (Negative) Urine Glucose (UA) Trace H (Negative) Urine Ketones 2+ H (Negative) Urine Blood Small H (Negative) Urine Nitrite Negative (Negative) Urine Bilirubin Negative (Negative) Urine Urobilinogen <2.0 (<2.0) mg/dL Ur Leukocyte Esterase Negative (Negative) Urine RBC <1 (0-5) /hpf Urine WBC 2 (0-5) /hpf Ur Squamous Epith Cells <1 (0-4) /hpf Urine Bacteria Rare H (None) /hpf Urine Mucus Rare H (None) /hpf Critical Care Time Critical Care Time: Yes Disposition Clinical Impression: New onset seizure Disposition: ADMITTED IP TO THIS [facility] Instructions (If sedation given, give patient instructions): Seizure/Epilepsy Discharge Instructions & Follow-Up Is patient prescribed a controlled substance at d/c from ED?: No Referrals: Bharathi Quach MD [Primary Care Provider] - 1-2 days Time of Disposition: 12:49
[2024-06-15] MEDS: LORazepam 2 MG/ML INJ IV STA ×3 (10:14→10:43)
[2024-06-15] MEDS: SODIUM CHLORIDE 0.9% 1,000 ML IV STA (10:15)
[2024-06-15 10:20] LABS: Anisocytosis Slight; Basophils # (A) 0.1 k/uL (0-0.2); Basophils % (A) 1 %; Eosinophils % (A) 0 %; HCT 37.2 % (34.0-46.0); HGB 11.5 gm/dL (11.4-16.0); Hypochromasia Slight; Lymphocytes # (A) 1.2 k/uL (1.0-4.8); Lymphocytes % (A) 9 %; MCH 25.5 pg (25.0-35.0); MCHC 30.9 g/dL (31.0-37.0); MCV 82.7 fL (80.0-100.0); Mean Platelet Volume 7.5; Monocytes # (A) 0.4 k/uL (0-1.0); Monocytes % (A) 4 %; Neutrophils # (A) 10.7 k/uL (1.3-7.7); Neutrophils % (A) 85 %; Platelet Count 331 k/uL (150-450); RDW 16.2 % (11.5-15.5); WBC 12.5 k/uL (3.8-10.6)
[2024-06-15 10:21] LABS: Glucose,Whole Blood 145 mg/dL (70-110)
[2024-06-15 10:35] LABS: AST 54 U/L (14-36); African American GFR (CKD) >90 (>60 ml/min/1.73 sqM); Albumin 4.5 g/dL (3.5-5.0); Alkaline Phosphatase 83 U/L (38-126); Anion Gap 14 mmol/L; Blood Urea Nitrogen 5 mg/dL (7-17); Calcium 9.2 mg/dL (8.4-10.2); Carbon Dioxide 21 mmol/L (22-30); Chloride 100 mmol/L (98-107); Glucose 153 mg/dL (74-99); Magnesium 1.4 mg/dL (1.6-2.3); Non-African American GFR(CKD) >90 (>60 ml/min/1.73 sqM); Potassium 3.8 mmol/L (3.5-5.1); Sodium 135 mmol/L (137-145); Total Bilirubin 0.5 mg/dL (0.2-1.3); Total Protein 7.8 g/dL (6.3-8.2)
[2024-06-15 10:42] LABS: ALT 41 U/L (4-34)
[2024-06-15 11:02] LABS: Appearance,Urine Clear (Clear); Bacteria,Urine Rare /hpf; Bilirubin,Urine Negative (Negative); Blood,Urine Small (Negative); Color,Urine Colorless; Glucose,Urine (UA) Trace (Negative); Ketones,Urine 2+ (Negative); Leukocyte Esterase,Urine Negative (Negative); Mucus,Urine Rare /hpf; Nitrite,Urine Negative (Negative); PH, Urine 5.5 (5.0-8.0); Protein,Urine 1+ (Negative); RBC,Urine <1 /hpf (0-5); Specific Gravity,Urine 1.017 (1.001-1.035); Squamous Epithelial Cell,Urine <1 /hpf (0-4); Urobilinogen,Urine <2.0 mg/dL (<2.0); WBC,Urine 2 /hpf (0-5)
[2024-06-15] MEDS: MAGNESIUM SULFATE-D5W PMX 1 GM in DEXTROSE/WATER 1 100ML.BAG IVPB ONE (11:19)
--- NOTE | 2024-06-15 11:22 | XR ---
EXAMINATION TYPE: XR chest 1V portable DATE OF EXAM: 06/15/2024 10:45 AM COMPARISON: Chest radiographs from 06/14/2024 CLINICAL INDICATION: Female, 63 years old with history of sz; altered mental status. TECHNIQUE: XR chest 1V portable Frontal view of the chest. FINDINGS: Lungs/Pleura: There is no evidence of pleural effusion, focal consolidation, or pneumothorax. Pulmonary vascularity: Pulmonary vascular congestion. Heart/mediastinum: Cardiomediastinal silhouette is enlarged. Musculoskeletal: No acute osseous pathology. IMPRESSION: Similar scattered interstitial opacities with prominence of the heart. No evidence for pneumothorax. [facility], , 06/15/2024 11:20 AM
[2024-06-15] MEDS: ACETAMINOPHEN IV (For NPO) 1,000 MG in EMPTY BAG 1 BAG IVPB STA (11:55)
--- NOTE | 2024-06-15 12:11 | CT ---
EXAMINATION TYPE: CT brain kajal anton DATE OF EXAM: 06/15/2024 COMPARISON: None CLINICAL INDICATION: Female, 63 years old with history of seizure; PHH, seizure and ams TECHNIQUE: CT scan of the head and cervical spine are performed without contrast. CT DLP: 1367.[address] CTDI: mGy Automated exposure control for dose reduction was used. Findings: Head CT: Ventricles, basal cisterns and sulci over convexities within normal limits and there is no mass, mass effect or shift of midline structures. No abnormal density is seen throughout the brain parenchyma and there is no acute intra or extra-axia l hemorrhage. Posterior fossa including the brainstem, fourth ventricle and cerebellar pontine angles are grossly n ormal. There is a right scleral buckle. The left orbit is unremarkable. Visualized paranasal sinuses are wel l aerated. CT cervical spine: Craniovertebral junction relationships and prevertebral soft tissues are normal. The cervical vertebral segments are normal in height and alignment and there is no fracture subluxati on. There is mild disc space narrowing and spondylosis at the C4-5, C5-6 and C6-7 levels.. There is mild degeneration of the cuboid joints in the mid and lower cervical spine, right greater th an left. There is no significant bony encroachment of the neural foramina or cervical canal. The paraspinal soft tissues unremarkable. IMPRESSION: 1. Head CT: No acute bleed or mass effect. 2. CT cervical spine: No acute trauma. Mild degenerative changes. [facility], Workstation: [facility], 06/15/2024 12:08 PM
[2024-06-15 12:42] LABS: Glucose,Whole Blood 117 mg/dL (70-110)
[2024-06-15] MEDS ORDERED: NALOXONE 0.4 MG/ML 1 ML VIAL IV PRN (12:49)
[2024-06-15] MEDS: SODIUM CHLORIDE 0.9% 1,000 ML IV SCH (13:29)
[2024-06-15] MEDS: levETIRAcetam IV 500 MG/5 ML VIAL IVP SCH (13:31)
--- NOTE | 2024-06-15 15:04 | P.CNNES ---
History of Present Illness Consult date: 06/15/24 Requesting physician: Don Dalton Reason for Consult: new onset seizure History of Present Illness: This is a 63-year-old woman with history of thyroid cancer, melanoma and squamous cell cancer status post resection who presented emergency department because of seizure-like activity. is at bedside who provides the history. He stated that yesterday she had a lung biopsy done as an outpatient by Dr. Sumner. Patient saw her last normal possibly 11:45 AM yesterday and then she went for the procedure and he saw her after that at 330 4:00 and he stated that after the procedure she had left-sided weakness and she was groggy. He initially thought that was due to her sedation. She continues to be irritable sykes yesterday with left-sided weakness and again thought was due to medication effect and will wear off and she will get better. Then today patient had staring off episode looking at the and then she had whole body jerking and he stated the episode lasted about 2 minutes. Patient does not have any history of seizures in the past. No history of stroke. She does not smoke. She does use marijuana. Continues to have left-sided weakness according to the . No urinary or bowel incontinence that he recalls. No foaming around the mouth. states that she received some sedation by EMS en route to the hospital. While she was in the ED the patient was agitated restless and received multiple doses of Ativan as well as had hand restraints but that worsened her agitation a ccording to the . Some of the workup during this hospital visit consisted of: Sodium is 135, initial serum glucose is 153, calcium is 9.2, magnesium is 1.4, AST is 54 ALT is 41 Plasma lactic acid venous 7.3. CT of the head is reported as no acute bleed or mass effect. I personally reviewed the CT and I agree there is no acute or subacute ischemic stroke. CT cervical spine no acute trauma. Mild degenerative changes. Review of Systems As per HPI. Past Medical History Past Medical History: Cancer, Fibromyalgia, GERD/Reflux, Hyperlipidemia, Hypertension, Osteoarthritis (OA), Thyroid Disorder Additional Past Medical History / Comment(s): Sjogrens syndrome Scleroderma, raynauds syndrome, diverticulitis. enlarged lymph node on front of trachea and spot on left upper lobe.SOB with exertion. issues with swallowing at time. thyroid cancer ansd melanoma.squamous cell ( all removed). dermatitis on neck. History of Any Multi-Drug Resistant Organisms: None Reported Past Surgical History: Bowel Resection, Cholecystectomy, Hysterectomy, Tonsi llectomy, Tubal Ligation Additional Past Surgical History / Comment(s): December 2022- sacrocolpopexy and retro pubic sling, urethral sling. [place], Bowel resection, Thyroidectomy, melanoma surgical excision, squamous cell. detached retina surgery. lt breast bx. bilat oophorectomy. Past Anesthesia/Blood Transfusion Reactions: No Reported Reaction Smoking Status: Former smoker, Vaper - Past Family History Father Family Medical History: Cancer Additional Family Medical History / Comment(s): colon cancer - Mother Family Medical History: Cancer Additional Family Medical History / Comment(s): colon cancer- Sister(s) Family Medical History: Cancer Additional Family Medical History / Comment(s): lung cancer - . another sister aortic aneurysm Brother(s) Family Medical History: AFIB, AICD/Pacemaker Medications and Allergies Home Medications Medication Instructions Recorded Confirmed Type Cevimeline [Evoxac] 30 mg PO BID 05/25/23 06/15/24 History DULoxetine HCL [Cymbalta] 60 mg PO DAILY 05/25/23 06/15/24 History Doxycycline [Vibramycin] 50 mg PO BID 05/25/23 06/15/24 History Gabapentin 600 mg PO TID 05/25/23 06/15/24 History Levothyroxine Sodium [Synthroid] 137 mcg PO DAILY 05/25/23 06/15/24 History Metoprolol Succinate [Toprol XL] 100 mg PO DAILY 05/25/23 06/15/24 History Omeprazole 20 mg PO BID 05/25/23 06/15/24 History estradioL [Estrace] 0.5 mg PO DAILY 05/25/23 06/15/24 History mycophenolate mofetiL [Cellcept] 1,000 mg PO BID 05/25/23 06/15/24 History Evolocumab [Repatha Sureclick] 140 mg SQ Q14D 06/06/24 06/15/24 History Isosorbide Mononitrate ER [Imdur] 30 mg PO DAILY 06/06/24 06/15/24 History dilTIAZem HCL [Cardizem LA] 180 mg PO DAILY 06/06/24 06/15/24 History Ferrous Sulfate [Feosol] 325 mg PO DAILY 06/08/24 06/15/24 History traMADol HCL 50 mg PO TID PRN 06/08/24 06/15/24 History Calcium Citrate/Vitamin D3 1 tab PO DAILY 06/15/24 06/15/24 History [Citracal + D Maximum Caplet] Cholecalciferol (Vitamin D3) 50 mcg PO DAILY 06/15/24 06/15/24 History [Vitamin D3 (50 Mcg = 2000 Iu)] L.acidoph,Paracasei, B.lactis 1 cap PO DAILY 06/15/24 06/15/24 History [Probiotic] Lidocaine 4% Patch 2 patch TOPICAL DAILY 06/15/24 06/15/24 History Triamcinolone 0.025% Cream 1 applic TOPICAL BID PRN 06/15/24 06/15/24 History [Kenalog 0.025% Cream] Ubidecarenone [Co Q-10] 30 mg PO DAILY 06/15/24 06/15/24 History Vitamin B Complex 1 cap PO DAILY 06/15/24 06/15/24 History metroNIDAZOLE [metroNIDAZOLE 1 applic TOPICAL BID 06/15/24 06/15/24 History Lotion] Allergies Allergy/AdvReac Type Severity Reaction Status Date / Time amoxicillin Allergy Rash/Hives Verified 06/15/24 14:36 clavulanic acid Allergy Rash/Hives Verified 06/15/24 14:36 [From Augmentin] clindamycin Allergy Rash/Hives Verified 06/15/24 14:36 minocycline Allergy Rash/Hives Verified 06/15/24 14:36 Physical Examination - Vital Signs Vital Signs: Vital Signs Temp Pulse Resp BP Pulse Ox 06/15/24 13:18 99.7 F H 124 H 24 153/88 96 06/15/24 12:25 99.9 F H 06/15/24 11:04 100.8 F H 137 H 31 H 147/79 97 06/15/24 10:30 97.5 F L 06/15/24 10:04 130 H 22 91 L 06/15/24 09:53 98.9 F 152 H 22 127/96 88 L Intake and Output 06/14/24 06/15/24 06/15/24 22:59 06:59 14:59 Other: Weight 72.575 kg General: Lying in bed and does not appear in acute distress. Neuro: Limited. Patient received multiple doses of Ativan. Patient is moderate to severe drowsy but is awake able to voice. She is oriented to self. She stated she is at [facility] and according to that where she goes all the time. She stated the year is 1923. And that the current month is April. She correctly named her 's name correctly. Patient's following few simple commands such as showing thumbs up sticking her tongue squeezing on the right hand. Patient is neglecting the left side. No aphasia from the limitation of the language. Pupils are round equal reactive to light. Visual flores is hard to assess because of her cooperation. Patient is neglecting the left side. She will have right gaze preference. Hard to assess the extraocular movement because of her cooperation. No facial weakness. No dysarthria Motor: Strength is hard to assess individual muscle strength but she is thin right upper and lower extremity above gravity and the strength seems okay. Left side is no movement noted. Sensation is hard to assess because of her cooperation Plantars are mute Results - Laboratory Findings CBC and BMP: 06/15/24 10:12 06/15/24 10:12 Abnormal Lab Findings: Abnormal Labs 06/15/24 06/15/24 06/15/24 10:12 10:12 10:18 WBC 12.5 H MCHC 30.9 L RDW 16.2 H Neutrophils # 10.7 H Sodium 135 L Carbon Dioxide 21 L BUN 5 L Glucose 153 H POC Glucose (mg/dL) 145 H Plasma Lactic Acid Max Magnesium 1.4 L AST 54 H ALT 41 H Urine Protein Urine Glucose (UA) Urine Ketones Urine Blood Urine Bacteria Urine Mucus 06/15/24 06/15/24 06/15/24 10:30 12:40 13:30 WBC MCHC RDW Neutrophils # Sodium Carbon Dioxide BUN Glucose POC Glucose (mg/dL) 117 H Plasma Lactic Acid Max 7.3 H* Magnesium AST ALT Urine Protein 1+ H Urine Glucose (UA) Trace H Urine Ketones 2+ H Urine Blood Small H Urine Bacteria Rare H Urine Mucus Rare H Assessment and Plan Assessment: This is a 63-year-old woman with history of thyroid cancer, squamous cell cancer and melanoma status post resection who had a lung biopsy yesterday as an outpatient and after the procedure the noted that the patient was agitated, groggy and had left-sided weakness and he noticed the symptoms yesterday around 3:30-4pm. Today the patient had seizure-like activity in which she had generalized tonic-clonic activity lasting for 2 minutes and continued to have weakness over the left side. She was agitated restless in the ER and was given multiple doses of Ativan. New onset seizure: Rule out brain mets Acute left hemiparesis: Possible Patrick's paralysis versus acute ischemic stroke vs brain mets History of thyroid cancer status post thyroidectomy History of Sjogren History of scleroderma History of Raynaud's History of squamous cell cancer status post resection History of melanoma status post resection History of bowel resection due to her scleroderma Fibromyalgia Underlying history of hypertension Marijuana use Plan: In the ER the patient was given multiple doses of Ativan because of her mentation and restlessness. Patient was started on Keppra 750 mg every 12 hours by the ED physician. I ordered MRI of the brain w/ and w/o but at this time patient will have difficulty pursuing with the MRI because she is too agitated restless if she is able to cooperate then recommend pursuing with MRI I ordered routine EEG but was notified by the aircraft technician the patient is not cooperating for it so was aborted. Clinically she was respond to questions appropriately. Possible avoid restraints since while in the ER was making her more agitated and restless. Seizure precautions seizure pads Pulmonary team is consulted Defer the rest of the medical management the primary and other specialist next I discussed in detail the with the patient's was at bedside. Thank you for the consultation. Time with Patient: Greater than 30
[2024-06-15] MEDS: AZITHROMYCIN 500 MG in SODIUM CHLORIDE 0.9% 250 ML IVPB SCH (15:15)
[2024-06-15] MEDS ORDERED: HALOPERIDOL LACTATE 5 MG/ML 1 ML VIAL IM PRN (16:22)
[2024-06-15 16:48] LABS: Glucose,Whole Blood 120 mg/dL (70-110)
[2024-06-15] MEDS: ACETAMINOPHEN TAB 325 MG TAB PO PRN (18:27)
[2024-06-15] MEDS: HALOPERIDOL LACTATE 5 MG/ML 1 ML VIAL IVP PRN (18:28)
[2024-06-15] MEDS: HALOPERIDOL LACTATE 5 MG/ML 1 ML VIAL IM STA (19:00)
[2024-06-16] MEDS: KETOROLAC 15 MG/ML 1 ML VIAL IVP PRN (00:21)
[2024-06-16] MEDS: LORazepam 2 MG/ML INJ IM PRN (03:37)
[2024-06-16 04:16] LABS: Glucose,Whole Blood 138 mg/dL (70-110)
[2024-06-16] MEDS: levETIRAcetam IV 500 MG/5 ML VIAL IVP STA (05:16)
[2024-06-16 07:38] LABS: Anisocytosis Slight; Basophils % (A) 0 %; Eosinophils % (A) 1 %; Hypochromasia Slight; Lymphocytes # (A) 1.5 k/uL (1.0-4.8); Lymphocytes % (A) 18 %; MCH 26.3 pg (25.0-35.0); MCHC 31.8 g/dL (31.0-37.0); MCV 82.8 fL (80.0-100.0); Mean Platelet Volume 7.4; Monocytes # (A) 0.5 k/uL (0-1.0); Monocytes % (A) 6 %; Neutrophils # (A) 5.9 k/uL (1.3-7.7); Neutrophils % (A) 74 %; Platelet Count 236 k/uL (150-450); RBC 3.75 m/uL (3.80-5.40); RDW 16.3 % (11.5-15.5)
[2024-06-16 07:40] LABS: ALT 35 U/L (4-34); AST 70 U/L (14-36); African American GFR (CKD) >90 (>60 ml/min/1.73 sqM); Albumin 3.5 g/dL (3.5-5.0); Alkaline Phosphatase 67 U/L (38-126); Anion Gap 8 mmol/L; Blood Urea Nitrogen 4 mg/dL (7-17); Calcium 8.3 mg/dL (8.4-10.2); Carbon Dioxide 22 mmol/L (22-30); Chloride 105 mmol/L (98-107); Glucose 99 mg/dL (74-99); Magnesium 1.8 mg/dL (1.6-2.3); Non-African American GFR(CKD) >90 (>60 ml/min/1.73 sqM); Potassium 3.3 mmol/L (3.5-5.1); Sodium 135 mmol/L (137-145); Total Bilirubin 0.5 mg/dL (0.2-1.3); Total Protein 6.3 g/dL (6.3-8.2)
[2024-06-16 07:54] LABS: HGB 9.9 gm/dL (11.4-16.0)
[2024-06-16] MEDS: FOLIC ACID-VIT B COMPLEX-VIT C 1 CAP PO SCH (08:58)
[2024-06-16] MEDS: DILTIAZEM CD 180 MG CAP.ER.24H PO SCH (08:58)
[2024-06-16] MEDS: ISOSORBIDE MONONITRATE ER 30 MG TAB.ER.24H PO SCH (08:58)
[2024-06-16] MEDS: LIDOCAINE 4% PATCH TOPICAL SCH (08:58)
[2024-06-16] MEDS: levETIRAcetam IV 500 MG/5 ML VIAL IVP SCH ×2 (08:58→20:38)
[2024-06-16] MEDS: DULoxetine HCL 60 MG CAPSULE.DR PO SCH (08:59)
[2024-06-16] MEDS: LEVOTHYROXINE 137 MCG TAB PO SCH (08:59)
[2024-06-16] MEDS: FERROUS SULFATE 325 MG TAB PO SCH (08:59)
[2024-06-16] MEDS: PANTOPRAZOLE 40 MG TABLET PO SCH (08:59)
[2024-06-16] MEDS: CHOLECALCIFEROL 25 MCG (1000 IU) TABLET PO SCH (08:59)
[2024-06-16] MEDS: METOPROLOL SUCCINATE (ER) 100 MG TAB.ER.24H PO SCH (08:59)
[2024-06-16] MEDS: CALCIUM CARB-VIT D 500 MG-5 MCG TAB PO SCH (08:59)
[2024-06-16] MEDS: LACTOBACILLUS ACIDOPHILUS/PECT 1 EACH CAPSULE PO SCH (08:59)
[2024-06-16] MEDS: CEVIMELINE 30 MG CAP PO SCH (09:54)
--- NOTE | 2024-06-16 13:07 | MR ---
MRI brain without contrast HISTORY: Seizure. COMPARISON: None. TECHNIQUE: Multiecho multiplanar images of the brain were obtained without contrast. FINDINGS: The axial T2 and FLAIR images are limited due to involuntary patient motion. On the T1-weighted sagittal images the midline structures including the craniovertebral junction rela tionship is normal.. The ventricles, basal cisterns and sulci over convexities are mildly enlarged consistent with mild ge neralized atrophy. There are a few scattered focal areas of abnormal increased signal intensity within the white matter on the FLAIR recovery images consistent with chronic white matter demyelination. There is diffuse gyriform abnormal increased signal intensity in the right frontal cortex raising the question of postictal changes versus ischemic changes versus an infectious process such as encephali tis. Clinical correlation is recommended. The intraorbital contents appear normal symmetric. Posterior fossa is grossly normal. Based on diffusion-weighted imaging, there is mild increased signal intensity in the right frontal co rtex. : 1. Diffuse abnormal increased gyriform signal intensity involving the right frontal cortex raising th e question of postsurgical changes versus inflammatory change such as encephalitis. Ischemic changes in the right frontal cortex is not excluded. 2. Mild generalized atrophy. 3. No mass effect or shift of midline structures [facility], Workstation: [facility], 06/16/2024 1:04 PM
--- NOTE | 2024-06-16 14:26 | P.PN ---
Subjective Progress Note Date: 06/16/24 I am following-up with patient and overnight patient had a seizure. It seems she had left foot jerking initially followed by whole body shaking and seizure lasted about 5 minutes. She was given 1mg Ativan. I was notified about it and increased her Keppra from 750mg bid to 1000mg bid and gave patient 1gm once. Today, and daughter are at bedside and they feels she is doing drastically better. she is more awake, responsive and her strength over the left side is drastically improving compared to yesterday. Objective - Vital Signs Vital signs: Vital Signs Temp 98.2 F 06/16/24 12:00 Pulse 95 06/16/24 12:00 Resp 18 06/16/24 12:00 BP 140/71 06/16/24 12:00 Pulse Ox 98 06/16/24 12:00 FiO2 Intake & Output 06/15/24 06/16/24 06/16/24 18:59 06:59 18:59 Intake Total 118 325 Output Total 1100 Balance 118 -775 Weight 72.575 kg 77.5 kg Intake: IV 325 Sodium Chloride 0.9% 1, 325 000 ml @ 130 mls/hr IV . Q7H42M [facility] Rx#:[id number] Oral 118 Output: Urine 1100 - Exam General: Lying in bed and is not in acute distress. Neuro: Patient is mildly drowsy but is awake able to voice. Patient is drastically more awake today compared to yesterday she is oriented to self place. She correctly stated the current year but stated the month was March and later stated was June. She is following simple commands. No facial weakness. No dysarthria. Motor the strength over the right side is 5 out of 5. Left side is 4+ Some of the workup during this hospital visit consisted of: Sodium is 135, initial serum glucose is 153, calcium is 9.2, magnesium is 1.4, AST is 54 ALT is 41 Plasma lactic acid venous 7.3. CT of the head is reported as no acute bleed or mass effect. I personally reviewed the CT and I agree there is no acute or subacute ischemic stroke. CT cervical spine no acute trauma. Mild degenerative changes. - Labs CBC & Chem 7: 06/16/24 06:57 06/16/24 06:57 Labs: Abnormal Lab Results - Last 24 Hours (Table) 06/15/24 06/16/24 06/16/24 Range/Units 16:38 04:15 06:57 RBC 3.75 L (3.80-5.40) m/uL Hgb 9.9 L D (11.4-16.0) gm/dL Hct 31.0 L (34.0-46.0) % RDW 16.3 H (11.5-15.5) % Sodium (137-145) mmol/L Potassium (3.5-5.1) mmol/L BUN (7-17) mg/dL POC Glucose (mg/dL) 120 H 138 H (70-110) mg/dL Calcium (8.4-10.2) mg/dL AST (14-36) U/L ALT (4-34) U/L 06/16/24 Range/Units 06:57 RBC (3.80-5.40) m/uL Hgb (11.4-16.0) gm/dL Hct (34.0-46.0) % RDW (11.5-15.5) % Sodium 135 L (137-145) mmol/L Potassium 3.3 L (3.5-5.1) mmol/L BUN 4 L (7-17) mg/dL POC Glucose (mg/dL) (70-110) mg/dL Calcium 8.3 L (8.4-10.2) mg/dL AST 70 H (14-36) U/L ALT 35 H (4-34) U/L Assessment and Plan Assessment: This is a 63-year-old woman with history of thyroid cancer, squamous cell cancer and melanoma status post resection who had a lung biopsy yesterday as an outpatient and after the procedure the noted that the patient was agitated, groggy and had left-sided weakness and he noticed the symptoms yesterday around 3:30-4pm. Today the patient had seizure-like activity in which she had generalized tonic-clonic activity lasting for 2 minutes and continued to have weakness over the left side. She was agitated restless in the ER and was given multiple doses of Ativan. New onset seizure: Rule out brain mets. Overnight she had another seizure and lasted for 5minutes--today seems more stable and more awake today compared to yesterday. Acute significant left hemiparesis: Probable Patrick's paralysis--improving today compared to yesterday versus acute ischemic stroke vs brain mets History of thyroid cancer status post thyroidectomy History of Sjogren History of scleroderma History of Raynaud's History of squamous cell cancer status post resection History of melanoma status post resection History of bowel resection due to her scleroderma Fibromyalgia Underlying history of hypertension Marijuana use Plan: I went up on Keppra from 750 mg twice daily to 1000 mg twice daily. Prior to this hospital admission she was not on any antiseizure medication. Pending MRI of the brain with and without Pending EEG. Yesterday could not completed since the patient was too agitated and restless. Since the patient's is stable we will pursue the EEG on this coming up Tuesday. Possible avoid restraints since while in the ER was making her more agitated and restless. Was on Ativan 1 mg every 2 hours as needed for seizures Seizure precautions seizure pads Pulmonary team is consulted Defer the rest of the medical management the primary and other specialist next Plan discussed with patient's and her daughter was at bedside Will continue to follow. Time with Patient: Less than 30
--- NOTE | 2024-06-16 15:45 | P.CNPUL ---
History of Present Illness Consult date: 06/16/24 Requesting physician: Eduard Li Reason for consult: abnormal CXR/CT Chief complaint: Seizure, agitation, restlessness History of present illness: This is a pleasant 63-year-old female patient with a known history of fibromyalgia, hypertension, hyperlipidemia, thyroid cancer status post thyroi dectomy, Sjogren's syndrome, scleroderma, Raynaud's syndrome, former smoker, vapor. She is known to have a left upper lobe pulmonary nodule measuring 15 mm in size with mediastinal lymphadenopathy. She was here electively on 06/14/2024 for robotic assisted lung biopsy and EBUS peritracheal lymph node biopsy. She was recovered and discharged to home. Later that same night she was having issues with restlessness, agitation and developed new onset seizures. She was brought back to the emergency room the following morning. Chest x-ray revealed scattered interstitial opacities. No evidence of pneumothorax. CT scan of the head revealed no acute bleed or mass effect. No acute trauma to the cervical spine. MRI of the brain today reveals diffuse abnormal increased uniform signal intensity involving the right frontal cortex raising the question of postictal changes versus inflammatory such as encephalitis. Ischemic changes in the right frontal cortex is not excluded. No mass effect or midline shift. Neurology had been consulted. She did have a seizure at approximately 3:30 this morning receiving Ativan. She is seen today in consultation on the selective care unit. She is currently resting fairly comfortably in bed. Seizure precautions in place. She denies any shortness of breath, cough or congestion. No hemoptysis. Maintaining O2 saturations in the upper 90s on room air. Afebrile. Hemodynamically stable. Review of Systems REVIEW OF SYSTEMS: CONSTITUTIONAL: Denies any recent significant weight loss or weight gain. EYES: Denies change in vision. EARS, NOSE, MOUTH, THROAT: Denies headaches, denies sore throat. CARDIOVASCULAR: Denies chest pain, palpitations or syncopal episodes. RESPIRATORY: Denies shortness of breath, cough, congestion or hemoptysis. GASTROINTESTINAL: Denies change in appetite, denies abdominal pain GENITOURINARY: Denies hematuria, denies infections. MUSKULOSKELETAL: Denies pain, denies swelling. INTEGUMENTARY: Denies rash, denies eczema. NEUROLOGICAL: Positive for seizure activity. PSYCHIATRIC: Denies anxiety, denies depression. HEMATOLOGIC/LYMPHATIC: Denies anemia, denies enlarged lymph nodes. Past Medical History Past Medical History: Cancer, Fibromyalgia, GERD/Reflux, Hyperlipidemia, Hypertension, Osteoarthritis (OA), Thyroid Disorder Additional Past Medical History / Comment(s): Sjogrens syndrome Scleroderma, raynauds syndrome, diverticulitis. enlarged lymph node on front of trachea and spot on left upper lobe.SOB with exertion. issues with swallowing at time. thyroid cancer ansd melanoma.squamous cell ( all removed). dermatitis on neck. History of Any Multi-Drug Resistant Organisms: None Reported Past Surgical History: Bowel Resection, Cholecystectomy, Hysterectomy, Tonsi llectomy, Tubal Ligation Additional Past Surgical History / Comment(s): December 2022- sacrocolpopexy and retro pubic sling, urethral sling. [place], Bowel resection, Thyroidectomy, melanoma surgical excision, squamous cell. detached retina surgery. lt breast bx. bilat oophorectomy. Past Anesthesia/Blood Transfusion Reactions: No Reported Reaction Smoking Status: Former smoker, Vaper - Past Family History Father Family Medical History: Cancer Additional Family Medical History / Comment(s): colon cancer - Mother Family Medical History: Cancer Additional Family Medical History / Comment(s): colon cancer- Sister(s) Family Medical History: Cancer Additional Family Medical History / Comment(s): lung cancer - . another sister aortic aneurysm Brother(s) Family Medical History: AFIB, AICD/Pacemaker Medications and Allergies Home Medications Medication Instructions Recorded Confirmed Type Cevimeline [Evoxac] 30 mg PO BID 05/25/23 06/15/24 History DULoxetine HCL [Cymbalta] 60 mg PO DAILY 05/25/23 06/15/24 History Doxycycline [Vibramycin] 50 mg PO BID 05/25/23 06/15/24 History Gabapentin 600 mg PO TID 05/25/23 06/15/24 History Levothyroxine Sodium [Synthroid] 137 mcg PO DAILY 05/25/23 06/15/24 History Metoprolol Succinate [Toprol XL] 100 mg PO DAILY 05/25/23 06/15/24 History Omeprazole 20 mg PO BID 05/25/23 06/15/24 History estradioL [Estrace] 0.5 mg PO DAILY 05/25/23 06/15/24 History mycophenolate mofetiL [Cellcept] 1,000 mg PO BID 05/25/23 06/15/24 History Evolocumab [Repatha Sureclick] 140 mg SQ Q14D 06/06/24 06/15/24 History Isosorbide Mononitrate ER [Imdur] 30 mg PO DAILY 06/06/24 06/15/24 History dilTIAZem HCL [Cardizem LA] 180 mg PO DAILY 06/06/24 06/15/24 History Ferrous Sulfate [Feosol] 325 mg PO DAILY 06/08/24 06/15/24 History traMADol HCL 50 mg PO TID PRN 06/08/24 06/15/24 History ALPRAZolam [Xanax] 0.25 mg PO BID PRN 06/15/24 06/15/24 History Calcium Citrate/Vitamin D3 1 tab PO DAILY 06/15/24 06/15/24 History [Citracal + D Maximum Caplet] Cholecalciferol (Vitamin D3) 50 mcg PO DAILY 06/15/24 06/15/24 History [Vitamin D3 (50 Mcg = 2000 Iu)] Evolocumab [Repatha Sureclick] 140 mg pe SQ WEEKLY 06/15/24 06/15/24 History L.acidoph,Paracasei, B.lactis 1 cap PO DAILY 06/15/24 06/15/24 History [Probiotic] Lidocaine 4% Patch 2 patch TOPICAL DAILY 06/15/24 06/15/24 History Triamcinolone 0.025% Cream 1 applic TOPICAL BID PRN 06/15/24 06/15/24 History [Kenalog 0.025% Cream] Ubidecarenone [Co Q-10] 30 mg PO DAILY 06/15/24 06/15/24 History Vitamin B Complex 1 cap PO DAILY 06/15/24 06/15/24 History metroNIDAZOLE [metroNIDAZOLE 1 applic TOPICAL BID 06/15/24 06/15/24 History Lotion] Allergies Allergy/AdvReac Type Severity Reaction Status Date / Time amoxicillin Allergy Rash/Hives Verified 06/15/24 15:52 clavulanic acid Allergy Rash/Hives Verified 06/15/24 15:52 [From Augmentin] clindamycin Allergy Rash/Hives Verified 06/15/24 15:52 minocycline Allergy Rash/Hives Verified 06/15/24 15:52 Physical Exam Vitals: Vital Signs Temp Pulse Resp BP Pulse Ox 06/16/24 14:00 95 18 06/16/24 12:00 98.2 F 95 18 140/71 98 06/16/24 08:00 97.5 F L 97 18 126/74 96 06/16/24 03:40 121 H 18 142/72 97 06/16/24 00:27 98.5 F 117 H 18 132/70 92 L 06/15/24 19:40 98.6 F 121 H 18 131/64 92 L 06/15/24 15:45 122 H 20 131/73 92 L Intake and Output 06/16/24 06/16/24 06/16/24 06:59 14:59 22:59 Output Total 1100 Balance -1100 Output: Urine 1100 Other: Weight 77.5 kg GENERAL EXAM: Alert, drowsy 63-year-old female, on room air, fairly comfortable in no apparent distress. HEAD: Normocephalic. EYES: Normal reaction of pupils, equal size. NOSE: Clear with pink turbinates. THROAT: No erythema or exudates. NECK: No masses, no JVD. CHEST: No chest wall deformity. LUNGS: Equal air entry with no crackles, wheeze, rhonchi or dullness. CVS: S1 and S2 normal with no audible murmur, regular rhythm. ABDOMEN: No hepatosplenomegaly, normal bowel sounds, no guarding or rigidity. SPINE: No scoliosis or deformity SKIN: No rashes CENTRAL NERVOUS SYSTEM: No focal deficits, tone is normal in all 4 extremities. EXTREMITIES: There is no peripheral edema. No clubbing, no cyanosis. Peripheral pulses are intact. Results - Laboratory Findings CBC and BMP: 06/16/24 06:57 06/16/24 06:57 Abnormal lab findings: Abnormal Labs 06/15/24 06/15/24 06/15/24 10:12 10:12 10:18 WBC 12.5 H RBC Hgb Hct MCHC 30.9 L RDW 16.2 H Neutrophils # 10.7 H Sodium 135 L Potassium Carbon Dioxide 21 L BUN 5 L Glucose 153 H POC Glucose (mg/dL) 145 H Plasma Lactic Acid Max Calcium Magnesium 1.4 L AST 54 H ALT 41 H Urine Protein Urine Glucose (UA) Urine Ketones Urine Blood Urine Bacteria Urine Mucus 06/15/24 06/15/24 06/15/24 10:30 12:40 13:30 WBC RBC Hgb Hct MCHC RDW Neutrophils # Sodium Potassium Carbon Dioxide BUN Glucose POC Glucose (mg/dL) 117 H Plasma Lactic Acid Max 7.3 H* Calcium Magnesium AST ALT Urine Protein 1+ H Urine Glucose (UA) Trace H Urine Ketones 2+ H Urine Blood Small H Urine Bacteria Rare H Urine Mucus Rare H 06/15/24 06/16/24 06/16/24 16:38 04:15 06:57 WBC RBC 3.75 L Hgb 9.9 L D Hct 31.0 L MCHC RDW 16.3 H Neutrophils # Sodium Potassium Carbon Dioxide BUN Glucose POC Glucose (mg/dL) 120 H 138 H Plasma Lactic Acid Max Calcium Magnesium AST ALT Urine Protein Urine Glucose (UA) Urine Ketones Urine Blood Urine Bacteria Urine Mucus 06/16/24 06:57 WBC RBC Hgb Hct MCHC RDW Neutrophils # Sodium 135 L Potassium 3.3 L Carbon Dioxide BUN 4 L Glucose POC Glucose (mg/dL) Plasma Lactic Acid Max Calcium 8.3 L Magnesium AST 70 H ALT 35 H Urine Protein Urine Glucose (UA) Urine Ketones Urine Blood Urine Bacteria Urine Mucus - Diagnostic Findings Chest x-ray: image reviewed Assessment and Plan Assessment: New onset seizures of unclear etiology. MRI of the brain today reveals diffuse abnormal increased uniform signal intensity involving the right frontal cortex raising the question of postictal changes versus inflammatory such as encephalitis. Ischemic changes in the right frontal cortex is not excluded. No mass effect or midline shift. Left upper lobe pulmonary nodule measuring 15 mm with mediastinal lymphadenopathy. Status post robotic assisted biopsy of the left upper lobe n odule and needle aspirate of a paratracheal lymph node on 06/14/2024. Pathology pending Fibromyalgia Hypertension Hyperlipidemia Sjogren's syndrome Scleroderma Raynaud's syndrome Thyroid cancer status post thyroidectomy Former smoker Vaping Plan: The patient was seen and evaluated Imaging, labs and medications reviewed Neurology consulted Initiated on Keppra Seizure precautions Remains on ceftriaxone and azithromycin Currently stable and on room air We will continue to follow and make further recommendations based on her clinical status I have personally seen and examined the patient, performed the documentation and the assessment and plan as written. Number of minutes spent on the visit: 20 Dictation was produced using [employer] dictation software. Please excuse any grammatical, word or spelling errors.
--- NOTE | 2024-06-16 15:47 | P.HPIM ---
History of Present Illness H&P Date: 06/15/24 Chief Complaint: Altered mental status/seizure 63-year-old female, history of hypertension, hyperlipidemia, hypothyroidism, fibromyalgia, hyperlipidemia, GERD/gastritis, presenting to the emergency department with reported seizure. Patient did have lung biopsy done with Dr. Vazquez and yesterday. There was some bleeding that he reported to the . Yesterday evening patient was restless. Patient does get like that occasionally when she gets sick. History is taken from as patient is a poor historian and is restless. Today prior to arrival patient became less responsive and then had a generalized tonic-clonic seizure lasting around 3 minutes. Patient has been confused and restless since that time. History from patient is very limited and she has no complaints. Review of Systems ROS unobtainable: due to mental status Past Medical History Past Medical History: Cancer, Fibromyalgia, GERD/Reflux, Hyperlipidemia, Hypertension, Osteoarthritis (OA), Thyroid Disorder Additional Past Medical History / Comment(s): Sjogrens syndrome Scleroderma, raynauds syndrome, diverticulitis. enlarged lymph node on front of trachea and spot on left upper lobe.SOB with exertion. issues with swallowing at time. thyroid cancer ansd melanoma.squamous cell ( all removed). dermatitis on neck. History of Any Multi-Drug Resistant Organisms: None Reported Past Surgical History: Bowel Resection, Cholecystectomy, Hysterectomy, Tonsillectomy, Tubal Ligation Additional Past Surgical History / Comment(s): December 2022- sacrocolpopexy and retro pubic sling, urethral sling. [place], Bowel resection, Thyroidectomy, melanoma surgical excision, squamous cell. detached retina surgery. lt breast bx. bilat oophorectomy. Past Anesthesia/Blood Transfusion Reactions: No Reported Reaction Smoking Status: Former smoker, Vaper - Past Family History Father Family Medical History: Cancer Additional Family Medical History / Comment(s): colon cancer - Mother Family Medical History: Cancer Additional Family Medical History / Comment(s): colon cancer- Sister(s) Family Medical History: Cancer Additional Family Medical History / Comment(s): lung cancer - . another sister aortic aneurysm Brother(s) Family Medical History: AFIB, AICD/Pacemaker Medications and Allergies Home Medications Medication Instructions Recorded Confirmed Type Cevimeline [Evoxac] 30 mg PO BID 05/25/23 06/15/24 History DULoxetine HCL [Cymbalta] 60 mg PO DAILY 05/25/23 06/15/24 History Doxycycline [Vibramycin] 50 mg PO BID 05/25/23 06/15/24 History Gabapentin 600 mg PO TID 05/25/23 06/15/24 History Levothyroxine Sodium [Synthroid] 137 mcg PO DAILY 05/25/23 06/15/24 History Metoprolol Succinate [Toprol XL] 100 mg PO DAILY 05/25/23 06/15/24 History Omeprazole 20 mg PO BID 05/25/23 06/15/24 History estradioL [Estrace] 0.5 mg PO DAILY 05/25/23 06/15/24 History mycophenolate mofetiL [Cellcept] 1,000 mg PO BID 05/25/23 06/15/24 History Evolocumab [Repatha Sureclick] 140 mg SQ Q14D 06/06/24 06/15/24 History Isosorbide Mononitrate ER [Imdur] 30 mg PO DAILY 06/06/24 06/15/24 History dilTIAZem HCL [Cardizem LA] 180 mg PO DAILY 06/06/24 06/15/24 History Ferrous Sulfate [Feosol] 325 mg PO DAILY 06/08/24 06/15/24 History traMADol HCL 50 mg PO TID PRN 06/08/24 06/15/24 History ALPRAZolam [Xanax] 0.25 mg PO BID PRN 06/15/24 06/15/24 History Calcium Citrate/Vitamin D3 1 tab PO DAILY 06/15/24 06/15/24 History [Citracal + D Maximum Caplet] Cholecalciferol (Vitamin D3) 50 mcg PO DAILY 06/15/24 06/15/24 History [Vitamin D3 (50 Mcg = 2000 Iu)] Evolocumab [Repatha Sureclick] 140 mg pe SQ WEEKLY 06/15/24 06/15/24 History L.acidoph,Paracasei, B.lactis 1 cap PO DAILY 06/15/24 06/15/24 History [Probiotic] Lidocaine 4% Patch 2 patch TOPICAL DAILY 06/15/24 06/15/24 History Triamcinolone 0.025% Cream 1 applic TOPICAL BID PRN 06/15/24 06/15/24 History [Kenalog 0.025% Cream] Ubidecarenone [Co Q-10] 30 mg PO DAILY 06/15/24 06/15/24 History Vitamin B Complex 1 cap PO DAILY 06/15/24 06/15/24 History metroNIDAZOLE [metroNIDAZOLE 1 applic TOPICAL BID 06/15/24 06/15/24 History Lotion] Allergies Allergy/AdvReac Type Severity Reaction Status Date / Time amoxicillin Allergy Rash/Hives Verified 06/15/24 15:52 clavulanic acid Allergy Rash/Hives Verified 06/15/24 15:52 [From Augmentin] clindamycin Allergy Rash/Hives Verified 06/15/24 15:52 minocycline Allergy Rash/Hives Verified 06/15/24 15:52 Physical Exam Vitals: Vital Signs Temp Pulse Pulse Resp BP BP Pulse Ox 06/16/24 08:00 97.5 F L 97 18 126/74 96 06/16/24 03:40 121 H 18 142/72 97 06/16/24 00:27 98.5 F 117 H 18 132/70 92 L 06/15/24 19:40 98.6 F 121 H 18 131/64 92 L 06/15/24 15:45 122 H 20 131/73 92 L 06/15/24 15:16 38.3 F L 103 H 16 154/82 100 06/15/24 13:18 99.7 F H 124 H 24 153/88 96 Intake and Output 06/15/24 06/16/24 06/16/24 22:59 06:59 14:59 Intake Total 443 Output Total 1100 Balance 443 -1100 Intake: IV 325 Sodium Chloride 0.9% 1, 325 000 ml @ 130 mls/hr IV . Q7H42M [facility] Rx#:[id number] Oral 118 Output: Urine 1100 Other: Weight 77.5 kg General appearance: alert, other (Patient is restless and difficult to answer or follow commands) Head exam: Present: normocephalic Eye exam: Present: normal appearance, PERRL, EOMI ENT exam: Present: normal oropharynx Neck exam: Present: normal inspection. Absent: tenderness, meningismus Respiratory exam: Present: normal lung sounds bilaterally Cardiovascular Exam: Present: tachycardia GI/Abdominal exam: Present: soft. Absent: distended, tenderness Extremities exam: Present: normal inspection, full ROM. Absent: tenderness Neurological exam: Present: alert, CN II-XII intact. Absent: motor sensory deficit Motor strength exam: RUE: 5, LUE: 5, RLE: 5, LLE: 5 Verbal Response: (4) confused conversation Psychiatric exam: Present: other (Patient is restless) Skin exam: Present: normal color Results CBC & Chem 7: 06/16/24 06:57 06/16/24 06:57 Labs: Abnormal Lab Results - Last 24 Hours (Table) 06/15/24 06/15/24 06/15/24 Range/Units 12:40 13:30 16:38 RBC (3.80-5.40) m/uL Hgb (11.4-16.0) gm/dL Hct (34.0-46.0) % RDW (11.5-15.5) % Sodium (137-145) mmol/L Potassium (3.5-5.1) mmol/L BUN (7-17) mg/dL POC Glucose (mg/dL) 117 H 120 H (70-110) mg/dL Plasma Lactic Acid Max 7.3 H* (0.7-2.0) mmol/L Calcium (8.4-10.2) mg/dL AST (14-36) U/L ALT (4-34) U/L 06/16/24 06/16/24 06/16/24 Range/Units 04:15 06:57 06:57 RBC 3.75 L (3.80-5.40) m/uL Hgb 9.9 L D (11.4-16.0) gm/dL Hct 31.0 L (34.0-46.0) % RDW 16.3 H (11.5-15.5) % Sodium 135 L (137-145) mmol/L Potassium 3.3 L (3.5-5.1) mmol/L BUN 4 L (7-17) mg/dL POC Glucose (mg/dL) 138 H (70-110) mg/dL Plasma Lactic Acid Max (0.7-2.0) mmol/L Calcium 8.3 L (8.4-10.2) mg/dL AST 70 H (14-36) U/L ALT 35 H (4-34) U/L Thrombosis Risk Factor Assmnt - Choose All That Apply Any of the Below Risk Factors Present?: Yes Each Factor Represents 1 point: Medical pt on bed rest, Obesity (BMI >25) Other Risk Factors: Yes Each Risk Factor Represents 2 Points: Age 61-74 years Other congenital or acquired thrombophilia - If yes, enter type in comment: No Thrombosis Risk Factor Assessment Total Risk Factor Score: 4 Thrombosis Risk Factor Assessment Level: Moderate Risk Assessment and Plan Assessment: 1. New onset seizures; patient does not have any history of seizure disorder -Patient received IV Keppra in ED -- Will repeat admitted for neurochecks and seizure precautions; continue maintenance dose of Keppra -- Neurology has been consulted and recommendations are pending 2. Left-sided weakness; possible CVA versus TIA -Patient had CT of the head which was negative for any acute intracranial process -- Recommend MRI of the brain, EEG and full stroke workup -Neurology is consulted 3. Left upper lobe nodule; patient is status post lung biopsy on 06/14/2024 -We will consult pulmonary service; appreciate input 4. Hyperlipidemia; patient will continue current treatment with Repatha as outpatient 5. Hypertension; Cardizem LA 180 mg daily; metoprolol 100 mg daily 6. Anxiety/depression; Cymbalta 60 mg daily 7. Hypothyroidism; thyroxine 137 mcg daily 8. Coronary artery disease; Imdur 30 mg daily DVT prophylaxis; SCDs CODE STATUS; full code
--- NOTE | 2024-06-16 15:49 | P.PN ---
Subjective Progress Note Date: 06/16/24 63-year-old female, history of hypertension, hyperlipidemia, hypothyroidism, fibromyalgia, hyperlipidemia, GERD/gastritis, presenting to the emergency department with reported seizure. Patient did have lung biopsy done with Dr. Vazquez and yesterday. There was some bleeding that he reported to the [facility] and. Yesterday evening patient was restless. Patient does get like that occasionally when she gets sick. History is taken from as patient is a poor historian and is restless. Today prior to arrival patient became less responsive and then had a generalized tonic-clonic seizure lasting around 3 minutes. Patient has been confused and restless since that time. History from patient is very limited and she has no complaints. Some of the workup during this hospital visit consisted of: Sodium is 135, initial serum glucose is 153, calcium is 9.2, magnesium is 1.4, AST is 54 ALT is 41 Plasma lactic acid venous 7.3. CT of the head is reported as no acute bleed or mass effect. I personally reviewed the CT and I agree there is no acute or subacute ischemic stroke. CT cervical spine no acute trauma. Mild degenerative changes. Objective - Vital Signs Vital signs: Vital Signs Temp 97.5 F L 06/16/24 08:00 Pulse 97 06/16/24 08:00 Resp 18 06/16/24 08:00 BP 126/74 06/16/24 08:00 Pulse Ox 96 06/16/24 08:00 FiO2 Intake & Output 06/15/24 06/16/24 06/16/24 18:59 06:59 18:59 Intake Total 118 325 Output Total 1100 Balance 118 -775 Weight 72.575 kg 77.5 kg Intake: IV 325 Sodium Chloride 0.9% 1, 325 000 ml @ 130 mls/hr IV . Q7H42M [facility] Rx#:[id number] Oral 118 Output: Urine 1100 - Exam General appearance: alert, other (Patient is restless and difficult to answer or follow commands) Head exam: Present: normocephalic Eye exam: Present: normal appearance, PERRL, EOMI ENT exam: Present: normal oropharynx Neck exam: Present: normal inspection. Absent: tenderness, meningismus Respiratory exam: Present: normal lung sounds bilaterally Cardiovascular Exam: Present: tachycardia GI/Abdominal exam: Present: soft. Absent: distended, tenderness Extremities exam: Present: normal inspection, full ROM. Absent: tenderness Neurological exam: Present: alert, CN II-XII intact. Absent: motor sensory deficit Motor strength exam: RUE: 5, LUE: 5, RLE: 5, LLE: 5 Verbal Response: (4) confused conversation Psychiatric exam: Present: other (Patient is restless) Skin exam: Present: normal color - Labs CBC & Chem 7: 06/16/24 06:57 06/16/24 06:57 Labs: Abnormal Lab Results - Last 24 Hours (Table) 06/15/24 06/15/24 06/15/24 Range/Units 12:40 13:30 16:38 RBC (3.80-5.40) m/uL Hgb (11.4-16.0) gm/dL Hct (34.0-46.0) % RDW (11.5-15.5) % Sodium (137-145) mmol/L Potassium (3.5-5.1) mmol/L BUN (7-17) mg/dL POC Glucose (mg/dL) 117 H 120 H (70-110) mg/dL Plasma Lactic Acid Max 7.3 H* (0.7-2.0) mmol/L Calcium (8.4-10.2) mg/dL AST (14-36) U/L ALT (4-34) U/L 06/16/24 06/16/24 06/16/24 Range/Units 04:15 06:57 06:57 RBC 3.75 L (3.80-5.40) m/uL Hgb 9.9 L D (11.4-16.0) gm/dL Hct 31.0 L (34.0-46.0) % RDW 16.3 H (11.5-15.5) % Sodium 135 L (137-145) mmol/L Potassium 3.3 L (3.5-5.1) mmol/L BUN 4 L (7-17) mg/dL POC Glucose (mg/dL) 138 H (70-110) mg/dL Plasma Lactic Acid Mxa (0.7-2.0) mmol/L Calcium 8.3 L (8.4-10.2) mg/dL AST 70 H (14-36) U/L ALT 35 H (4-34) U/L Assessment and Plan Assessment: 1. New onset seizures; patient does not have any history of seizure disorder -Patient received IV Keppra in ED -- Will repeat admitted for neurochecks and seizure precautions; continue maintenance dose of Keppra -- Neurology has been consulted and recommendations are pending 2. Left-sided weakness; possible CVA versus TIA -Patient had CT of the head which was negative for any acute intracranial process -- Recommend MRI of the brain, EEG and full stroke workup -Neurology is consulted 3. Left upper lobe nodule; patient is status post lung biopsy on 06/14/2024 -We will consult pulmonary service; appreciate input 4. Hyperlipidemia; patient will continue current treatment with Repatha as outpatient 5. Hypertension; Cardizem LA 180 mg daily; metoprolol 100 mg daily 6. Anxiety/depression; Cymbalta 60 mg daily 7. Hypothyroidism; thyroxine 137 mcg daily 8. Coronary artery disease; Imdur 30 mg daily DVT prophylaxis; SCDs CODE STATUS; full code
[2024-06-16] MEDS: LORazepam 2 MG/ML INJ IV PRN (20:10)
[2024-06-16] MEDS ORDERED: levETIRAcetam IV 500 MG/5 ML VIAL IVP PRN (20:15)
[2024-06-17 12:23] LABS: Anisocytosis Slight; Basophils % (A) 1 %; Eosinophils # (A) 0.2 k/uL (0-0.7); Eosinophils % (A) 2 %; HCT 32.6 % (34.0-46.0); HGB 10.3 gm/dL (11.4-16.0); Hypochromasia Moderate; Lymphocytes # (A) 1.1 k/uL (1.0-4.8); Lymphocytes % (A) 19 %; MCH 26.3 pg (25.0-35.0); MCHC 31.6 g/dL (31.0-37.0); Mean Platelet Volume 8.4; Monocytes # (A) 0.4 k/uL (0-1.0); Monocytes % (A) 6 %; Neutrophils # (A) 4.3 k/uL (1.3-7.7); Neutrophils % (A) 71 %; Platelet Count 230 k/uL (150-450); RBC 3.93 m/uL (3.80-5.40); RDW 16.3 % (11.5-15.5)
[2024-06-17 12:39] LABS: African American GFR (CKD) >90 (>60 ml/min/1.73 sqM); Anion Gap 5 mmol/L; Blood Urea Nitrogen 4 mg/dL (7-17); C Reactive Protein 1.7 mg/dL (<1.0); Calcium 8.5 mg/dL (8.4-10.2); Carbon Dioxide 23 mmol/L (22-30); Chloride 107 mmol/L (98-107); Glucose 112 mg/dL (74-99); Non-African American GFR(CKD) >90 (>60 ml/min/1.73 sqM); Potassium 2.9 mmol/L (3.5-5.1); Sodium 135 mmol/L (137-145)
[2024-06-17] MEDS: POTASSIUM CHLORIDE 20 MEQ in WATER FOR INJECTION 1 100ML.BAG IVPB SCH (14:39)
--- NOTE | 2024-06-17 15:06 | P.PN ---
Subjective Progress Note Date: 06/17/24 Principal diagnosis: New onset seizure This is a pleasant 63-year-old female patient with a known history of fibromyalgia, hypertension, hyperlipidemia, thyroid cancer status post thyroidectomy, Sjogren's syndrome, scleroderma, Raynaud's syndrome, former smoker, vapor. She is known to have a left upper lobe pulmonary nodule measuring 15 mm in size with mediastinal lymphadenopathy. She was here electively on 06/14/2024 for robotic assisted lung biopsy and EBUS peritracheal lymph node biopsy. She was recovered and discharged to home. Later that same night she was having issues with restlessness, agitation and developed new onset seizures. She was brought back to the emergency room the following morning. Chest x-ray revealed scattered interstitial opacities. No evidence of pneumothorax. CT scan of the head revealed no acute bleed or mass effect. No acute trauma to the cervical spine. MRI of the brain today reveals diffuse abnormal increased uniform signal intensity involving the right frontal cortex raising the question of postictal changes versus inflammatory such as encephalitis. Ischemic changes in the right frontal cortex is not excluded. No mass effect or midline shift. Neurology had been consulted. She did have a seizure at approximately 3:30 this morning receiving Ativan. She is seen today in consultation on the selective care unit. She is currently resting fairly comfortably in bed. Seizure precautions in place. She denies any shortness of breath, cough or congestion. No hemoptysis. Maintaining O2 saturations in the upper 90s on room air. Afebrile. Hemodynamically stable. Patient was seen today on 06/17/2024, doing well, however last night she had another brief seizure episode, neurology has been notified. [facility], MRI of the brain was noted radiologist was concerned about some postictal findings noted on the MRI. There was no evidence of metastasis to the brain. And no specific abnormality. EEG is pending. Objective - Vital Signs Vital signs: Vital Signs Temp 98.1 F 06/17/24 07:48 Pulse 72 06/17/24 12:27 Resp 18 06/17/24 12:27 BP 114/53 06/17/24 12:27 Pulse Ox 98 06/17/24 12:27 FiO2 Intake & Output 06/16/24 06/17/24 06/17/24 18:59 06:59 18:59 Intake Total 40 10 Output Total 0 1300 Balance 40 -1290 Intake: IV 40 10 Invasive Line 1 20 10 Invasive Line 2 20 Output: Urine 0 1300 Other: Voiding Method Indwelling Catheter # Voids 2 # Bowel Movements 2 - Exam GENERAL EXAM: 63-year-old female in no distress HEAD: Normocephalic. Atraumatic EYES: Normal reaction of pupils, equal size. NOSE: Clear with pink turbinates. THROAT: No erythema or exudates. NECK: No masses, no JVD. CHEST: No chest wall deformity. LUNGS: Equal air entry with no crackles, wheeze, rhonchi or dullness. CVS: S1 and S2 normal with no audible murmur, regular rhythm. ABDOMEN: No hepatosplenomegaly, normal bowel sounds, no guarding or rigidity. SKIN: No rashes CENTRAL NERVOUS SYSTEM: Alert oriented x 3 no gross focal deficit EXTREMITIES: No clubbing edema or cyanosis - Labs CBC & Chem 7: 06/17/24 12:07 06/17/24 12:07 Labs: Abnormal Lab Results - Last 24 Hours (Table) 06/17/24 06/17/24 Range/Units 12:07 12:07 Hgb 10.3 L (11.4-16.0) gm/dL Hct 32.6 L (34.0-46.0) % RDW 16.3 H (11.5-15.5) % Sodium 135 L (137-145) mmol/L Potassium 2.9 L (3.5-5.1) mmol/L BUN 4 L (7-17) mg/dL Creatinine 0.51 L (0.52-1.04) mg/dL Glucose 112 H (74-99) mg/dL C-Reactive Protein 1.7 H (<1.0) mg/dL Microbiology - Last 24 Hours (Table) 06/15/24 13:30 Blood Culture - Preliminary Blood Assessment and Plan Assessment: Impression: New onset seizures of unclear etiology. MRI report was noted EEG is pending Left upper lobe pulmonary nodule measuring 15 mm with mediastinal lymphadenopathy. Status post robotic assisted biopsy of the left upper lobe nodule and needle aspirate of a paratracheal lymph node on 06/14/2024. Pathology pending Fibromyalgia Hypertension Hyperlipidemia Sjogren's syndrome on Evoxac Scleroderma Raynaud's syndrome Thyroid cancer status post thyroidectomy Former smoker Vaping Recommendation: Continue seizure precautions Continue Keppra Continue antibiotics empirically for now Awaiting the EEG Neurology is following Will continue to follow Time with Patient: Less than 30
--- NOTE | 2024-06-17 15:37 | P.PN ---
Subjective Progress Note Date: 06/17/24 I am following-up with patient and she is accompanied by her and two children. Patient had another seizure yesterday at night and per she had shaking of all extremities and episode was shorter compared to two days ago. Her weakness on the left side is improved. She received 1mg Ativan yesterday for her seizure. Patient states she has minimal headache 1/10 over the bilateral frontal region. Denies nausea or vomiting. MRI Brain was done without and not with since could not cooperate. Objective - Vital Signs Vital signs: Vital Signs Temp 98.1 F 06/17/24 07:48 Pulse 72 06/17/24 12:27 Resp 18 06/17/24 12:27 BP 114/53 06/17/24 12:27 Pulse Ox 98 06/17/24 12:27 FiO2 Intake & Output 06/16/24 06/17/24 06/17/24 18:59 06:59 18:59 Intake Total 40 20 Output Total 0 1300 Balance 40 -1280 Intake: IV 40 20 Invasive Line 1 20 10 Invasive Line 2 20 Invasive Line 3 10 Output: Urine 0 1300 Other: Voiding Method Indwelling Catheter # Voids 2 # Bowel Movements 2 - Exam General: Lying in bed and is not in acute distress. Neuro: Patient is awake, alert, oriented to self, place and time. Is following simple commands. No aphasia. No facial weakness. No dysarthria. Motor the strength 5/5 throughout. Some of the workup during this hospital visit consisted of: Sodium is 135, initial serum glucose is 153, calcium is 9.2, magnesium is 1.4, AST is 54 ALT is 41 Plasma lactic acid venous 7.3. CT of the head is reported as no acute bleed or mass effect. I personally reviewed the CT and I agree there is no acute or subacute ischemic stroke. CT cervical spine no acute trauma. Mild degenerative changes. MRI Brain: Diffuse abnormal increased gyriform signal intensity involving the right frontal cortex raising the question of the postsurgical changes vs infllamatory change such as encephalitis. Ischemic changes in the right frontal cortex in not excluded. No mass effect or shift of midline structures. - Labs CBC & Chem 7: 06/17/24 12:06/17/24 12:07 Labs: Abnormal Lab Results - Last 24 Hours (Table) 12/08/24 12/08/24 Range/Units 12:07 12:07 Hgb 10.3 L (11.4-16.0) gm/dL Hct 32.6 L (34.0-46.0) % RDW 16.3 H (11.5-15.5) % Sodium 135 L (137-145) mmol/L Potassium 2.9 L (3.5-5.1) mmol/L BUN 4 L (7-17) mg/dL Creatinine 0.51 L (0.52-1.04) mg/dL Glucose 112 H (74-99) mg/dL C-Reactive Protein 1.7 H (<1.0) mg/dL Microbiology - Last 24 Hours (Table) 06/15/24 13:30 Blood Culture - Preliminary Blood Assessment and Plan Assessment: This is a 63-year-old woman with history of thyroid cancer, squamous cell cancer and melanoma status post resection who had a lung biopsy yesterday as an outpatient and after the procedure the noted that the patient was agitated, groggy and had left-sided weakness and he noticed the symptoms yesterday around 3:30-4pm. Today the patient had seizure-like activity in which she had generalized tonic-clonic activity lasting for 2 minutes and continued to have weakness over the left side. She was agitated restless in the ER and was given multiple doses of Ativan. New onset seizure. And had seizure at night for the last could days--stable: Unsure exact cause. Rule due to result of underlying [employer] infection (had low grade fever first day and mild leukocytosis--resolved) vs brain mets vs ?stroke. Acute significant left hemiparesis due to Patrick's paralysis--resolved History of thyroid cancer status post thyroidectomy History of Sjogren History of scleroderma History of Raynaud's History of squamous cell cancer status post resection History of melanoma status post resection History of bowel resection due to her scleroderma Fibromyalgia Underlying history of hypertension Marijuana use Plan: I went up on Keppra from 1gm to 1.5gm bid. Prior to this hospital admission she was not on any antiseizure medication. Will obtain MRI Brain with gadolinium to assess for any masses. I consulted anesthesiology team for CSF study. I will pursue with STAT EEG today. Consulted I.D. team for patient episode low grade fever and leukocytosis on presentation. Please avoid restraints since while in the ER was making her more agitated and restless. Was on Ativan 1 mg every 2 hours as needed for seizures Seizure precautions seizure pads Pulmonary team is consulted Defer the rest of the medical management the primary and other specialist next Plan discussed with patient's and her children. Will continue to follow. Time with Patient: Less than 30
[2024-06-17 15:54] LABS: Partial Thromboplastin Time 22.6 sec (22.0-30.0); Prothrombin Time 11.1 sec (10.0-12.5)
--- NOTE | 2024-06-17 15:57 | P.PN ---
Subjective Progress Note Date: 06/17/24 63-year-old female, history of hypertension, hyperlipidemia, hypothyroidism, fibromyalgia, hyperlipidemia, GERD/gastritis, presenting to the emergency department with reported seizure. Patient did have lung biopsy done with Dr. Vazquez and yesterday. There was some bleeding that he reported to the [facility] and. Yesterday evening patient was restless. Patient does get like that occasionally when she gets sick. History is taken from as patient is a poor historian and is restless. Today prior to arrival patient became less responsive and then had a generalized tonic-clonic seizure lasting around 3 minutes. Patient has been confused and restless since that time. History from patient is very limited and she has no complaints. Some of the workup during this hospital visit consisted of: Sodium is 135, initial serum glucose is 153, calcium is 9.2, magnesium is 1.4, AST is 54 ALT is 41 Plasma lactic acid venous 7.3. CT of the head is reported as no acute bleed or mass effect. I personally reviewed the CT and I agree there is no acute or subacute ischemic stroke. CT cervical spine no acute trauma. Mild degenerative changes. 24-hour interval change 06/17/2024 Patient is seen and evaluated with multiple family members at bedside; she is awake and alert and at baseline per family members; patient had an other brief seizure episode last night Vital signs are reviewed and remained stable MRI of the brain today reveals diffuse abnormal increased uniform signal intensity involving the right frontal cortex raising the question of postictal changes versus inflammatory such as encephalitis. Ischemic changes in the right frontal cortex is not excluded. No mass effect or midline shift. Lab review shows WBC 6.0, hemoglobin of 10.3 and platelet count of 230, sodium 135, potassium 2.9, BUNs/creatinine 4/0.51 -Neurology on board and dose of Keppra has been increased to 1500 mg twice daily; neurology planning to repeat MRI with contrast; stat EEG to be completed today; neurology recommending ID consult for low-grade fever and leukocytosis upon arrival to ED -Patient will receive KCl 40 mEq IV x 1; will repeat levels after infusion is completed Objective - Vital Signs Vital signs: Vital Signs Temp 98.1 F 06/17/24 07:48 Pulse 72 06/17/24 12:27 Resp 18 06/17/24 12:27 BP 114/53 06/17/24 12:27 Pulse Ox 98 12/08/24 12:27 FiO2 Intake & Output 06/16/24 06/17/24 06/17/24 18:59 06:59 18:59 Intake Total 40 10 Output Total 0 1300 Balance 40 -1290 Intake: IV 40 10 Invasive Line 1 20 10 Invasive Line 2 20 Output: Urine 0 1300 Other: Voiding Method Indwelling Catheter # Voids 2 # Bowel Movements 2 - Exam General appearance: alert, other (Patient is restless and difficult to answer or follow commands) Head exam: Present: normocephalic Eye exam: Present: normal appearance, PERRL, EOMI ENT exam: Present: normal oropharynx Neck exam: Present: normal inspection. Absent: tenderness, meningismus Respiratory exam: Present: normal lung sounds bilaterally Cardiovascular Exam: Present: tachycardia GI/Abdominal exam: Present: soft. Absent: distended, tenderness Extremities exam: Present: normal inspection, full ROM. Absent: tenderness Neurological exam: Present: alert, CN II-XII intact. Absent: motor sensory deficit Motor strength exam: RUE: 5, LUE: 5, RLE: 5, LLE: 5 Verbal Response: (4) confused conversation Psychiatric exam: Present: other (Patient is restless) Skin exam: Present: normal color - Labs CBC & Chem 7: 06/17/24 12:07 06/17/24 12:07 Labs: Abnormal Lab Results - Last 24 Hours (Table) 06/17/24 06/17/24 Range/Units 12:07 12:07 Hgb 10.3 L (11.4-16.0) gm/dL Hct 32.6 L (34.0-46.0) % RDW 16.3 H (11.5-15.5) % Sodium 135 L (137-145) mmol/L Potassium 2.9 L (3.5-5.1) mmol/L BUN 4 L (7-17) mg/dL Creatinine 0.51 L (0.52-1.04) mg/dL Glucose 112 H (74-99) mg/dL C-Reactive Protein 1.7 H (<1.0) mg/dL Microbiology - Last 24 Hours (Table) 06/15/24 13:30 Blood Culture - Preliminary Blood Assessment and Plan Assessment: 1. New onset seizures; patient does not have any history of seizure disorder -Patient received IV Keppra in ED -- Will repeat admitted for neurochecks and seizure precautions; continue maintenance dose of Keppra -- Neurology has been consulted and recommendations are pending 2. Left-sided weakness; possible CVA versus TIA -Patient had CT of the head which was negative for any acute intracranial proces s -- Recommend MRI of the brain, EEG and full stroke workup -Neurology is consulted 3. Left upper lobe nodule; patient is status post lung biopsy on 06/14/2024 -We will consult pulmonary service; appreciate input 4. Hyperlipidemia; patient will continue current treatment with Repatha as outpatient 5. Hypertension; Cardizem LA 180 mg daily; metoprolol 100 mg daily 6. Anxiety/depression; Cymbalta 60 mg daily 7. Hypothyroidism; thyroxine 137 mcg daily 8. Coronary artery disease; Imdur 30 mg daily DVT prophylaxis; SCDs CODE STATUS; full code
[2024-06-17] MEDS: Lacosamide IV (ages 17+ yrs) 200 MG/20 ML ML IVP STA (18:10)
[2024-06-17] MEDS: POTASSIUM CHLORIDE ER 20 MEQ TAB.ER PO ONE (21:37)
--- NOTE | 2024-06-17 22:13 | EEG ---
ELECTROENCEPHALOGRAM REPORT CLINICAL HISTORY: This is a 63-year-old woman with new-onset seizure. The video EEG is obtained to evaluate for seizure epileptiform activity. RELEVANT MEDICATION: Keppra and Vimpat. EEG TYPE: This is a routine 21-channel EEG with video using the 10/20 electrode placement system. DESCRIPTION: Wakefulness is only obtained. During awake state, the posterior-dominant rhythm consists of [id number] voltage of 9.5 to 10.5 Hz activity that is well modulated, well sustained. There is no physiological stage II sleep architecture. There is focal slowing over the right frontal, central, temporal region. Interictal and ictal, there is sharp and slow waves predominantly over the right frontal central region and there is a field effective temporal region on the right as well. No seizures noted during the study. ACTIVATION PROCEDURE: Photic stimulation did not evoke a posterior driving response. There is no abnormality during the photic stimulation. Hyperventilation is not performed. CLINICAL INTERPRETATION: This is an abnormal routine EEG. The background is normal. The epileptiform discharges stemming over the right frontal and central region increases risk for focal seizure as well status epilepticus. The focal slowing over the right frontal, central, and temporal region is suggestive of underlying focal cerebral dysfunction in the involved region. No seizure is noted during the study. Clinical correlation is recommended. MMODL / IJN: [id number] /
--- NOTE | 2024-06-17 22:53 | P.CONS ---
History of Present Illness - Reason for Consult Consult date: 06/17/24 Fever, leukocytosis abnormal MRI Requesting physician: Raymond Forrester - Chief Complaint Seizure x 2 days - History of Present Illness Patient is a 63-year-old female with a past medical history significant for hypertension hyperlipidemia osteomyelitis reflux fibromyalgia Sjogren's syndrome apparently the patient did have bronchoscopy and biopsy for left upper lobe pulmonary nodule and mediastinal lymphadenopathy on 06/14/2024 daughter mention she may not have recovered completely from anesthesia and was significantly restless that night and agitated and subsequently did have seizure activity the next day that is on 06/15/2024 for the patient has been reported to the hospital and since then she did have 2 more seizure activity never have a seizure in her life before that patient on presentation the hospital was afebrile she did have a low-grade fever 100.8 F on 06/15/2024 and the fever has resolved subsequently patient was tachycardic on presentation to the hospital but not hypotensive or hypoxic and is currently on room air patient did have a white count of 12.5 on admission subsequent normalized creatinine 0.664 liver isms mildly elevated urine is negative influenza RSV COVID testing negative patient did have a chest x-ray several scattered interstitial opacities with prominence of the heart no evidence of pneumothorax patient did have a question of postsurgical change versus inflammatory changes such as encephalitis ischemic changes in the right frontal cortex not excluded patient has been empirically treated with Rocephin and Zithromax infectious disease was consulted today fever with leukocytosis with a new seizure patient at the time of My evaluation this evening is back to her baseline as reported well by the patient and the daughter at the bedside patient did have mild headache patient know that she is in the hospital patient denies any photophobia no chest pain shortness of breath occasional cough no nausea vomiting abdominal pain or diarrhea Review of Systems Positive point and negatives has been mentioned in the HPI, complete review of systems was performed and all other systems are negative Past Medical History Past Medical History: Cancer, Fibromyalgia, GERD/Reflux, Hyperlipidemia, Hypertension, Osteoarthritis (OA), Thyroid Disorder Additional Past Medical History / Comment(s): Sjogrens syndrome Scleroderma, raynauds syndrome, diverticulitis. enlarged lymph node on front of trachea and spot on left upper lobe.SOB with exertion. issues with swallowing at time. thyroid cancer ansd melanoma.squamous cell ( all removed). dermatitis on neck. History of Any Multi-Drug Resistant Organisms: None Reported Past Surgical History: Bowel Resection, Cholecystectomy, Hysterectomy, Tonsillectomy, Tubal Ligation Additional Past Surgical History / Comment(s): December 2022- sacrocolpopexy and retro pubic sling, urethral sling. [place], Bowel resection, Thyroidectomy, melanoma surgical excision, squamous cell. detached retina surgery. lt breast bx. bilat oophorectomy. Past Anesthesia/Blood Transfusion Reactions: No Reported Reaction Smoking Status: Former smoker, Vaper - Past Family History Father Family Medical History: Cancer Additional Family Medical History / Comment(s): colon cancer - Mother Family Medical History: Cancer Additional Family Medical History / Comment(s): colon cancer- Sister(s) Family Medical History: Cancer Additional Family Medical History / Comment(s): lung cancer - . another sister aortic aneurysm Brother(s) Family Medical History: AFIB, AICD/Pacemaker Medications and Allergies Home Medications Medication Instructions Recorded Confirmed Type Cevimeline [Evoxac] 30 mg PO BID 05/25/23 06/15/24 History DULoxetine HCL [Cymbalta] 60 mg PO DAILY 05/25/23 06/15/24 History Doxycycline [Vibramycin] 50 mg PO BID 05/25/23 06/15/24 History Gabapentin 600 mg PO TID 05/25/23 06/15/24 History Levothyroxine Sodium [Synthroid] 137 mcg PO DAILY 05/25/23 06/15/24 History Metoprolol Succinate [Toprol XL] 100 mg PO DAILY 05/25/23 06/15/24 History Omeprazole 20 mg PO BID 05/25/23 06/15/24 History estradioL [Estrace] 0.5 mg PO DAILY 05/25/23 06/15/24 History mycophenolate mofetiL [Cellcept] 1,000 mg PO BID 05/25/23 06/15/24 History Evolocumab [Repatha Sureclick] 140 mg SQ Q14D 06/06/24 06/15/24 History Isosorbide Mononitrate ER [Imdur] 30 mg PO DAILY 06/06/24 06/15/24 History dilTIAZem HCL [Cardizem LA] 180 mg PO DAILY 06/06/24 06/15/24 History Ferrous Sulfate [Feosol] 325 mg PO DAILY 06/08/24 06/15/24 History traMADol HCL 50 mg PO TID PRN 06/08/24 06/15/24 History ALPRAZolam [Xanax] 0.25 mg PO BID PRN 06/15/24 06/15/24 History Calcium Citrate/Vitamin D3 1 tab PO DAILY 06/15/24 06/15/24 History [Citracal + D Maximum Caplet] Cholecalciferol (Vitamin D3) 50 mcg PO DAILY 06/15/24 06/15/24 History [Vitamin D3 (50 Mcg = 2000 Iu)] Evolocumab [Repatha Sureclick] 140 mg pe SQ WEEKLY 06/15/24 06/15/24 History L.acidoph,Paracasei, B.lactis 1 cap PO DAILY 06/15/24 06/15/24 History [Probiotic] Lidocaine 4% Patch 2 patch TOPICAL DAILY 06/15/24 06/15/24 History Triamcinolone 0.025% Cream 1 applic TOPICAL BID PRN 06/15/24 06/15/24 History [Kenalog 0.025% Cream] Ubidecarenone [Co Q-10] 30 mg PO DAILY 06/15/24 06/15/24 History Vitamin B Complex 1 cap PO DAILY 06/15/24 06/15/24 History metroNIDAZOLE [metroNIDAZOLE 1 applic TOPICAL BID 06/15/24 06/15/24 History Lotion] Allergies Allergy/AdvReac Type Severity Reaction Status Date / Time amoxicillin Allergy Rash/Hives Verified 06/15/24 15:52 clavulanic acid Allergy Rash/Hives Verified 06/15/24 15:52 [From Augmentin] clindamycin Allergy Rash/Hives Verified 06/15/24 15:52 minocycline Allergy Rash/Hives Verified 06/15/24 15:52 Physical Exam Vitals: Vital Signs Temp Pulse Resp BP BP Pulse Ox 06/17/24 16:19 98.3 F 62 16 137/66 98 06/17/24 12:27 72 18 114/53 98 06/17/24 07:48 98.1 F 80 16 151/83 99 06/17/24 04:21 96 18 134/79 99 06/17/24 02:36 16 06/17/24 00:11 98.0 F 92 18 132/74 99 06/16/24 21:50 93 18 147/80 99 06/16/24 20:30 18 Intake and Output 06/17/24 06/17/24 06/17/24 06:59 14:59 22:59 Intake Total 20 20 Output Total 0 1300 Balance 20 -1280 Intake: IV 20 20 Invasive Line 1 10 10 Invasive Line 2 10 Invasive Line 3 10 Output: Urine 0 1300 Other: Voiding Method Indwelling Catheter # Voids 2 # Bowel Movements 2 GENERAL DESCRIPTION: Middle-aged female lying in bed, no distress. No tachypnea or accessory muscle of respiration use. HEENT: Shows Pallor , no scleral icterus. Oral mucous membrane is dry. No pharyngeal erythema or thrush NECK: Trachea central, no thyromegaly. LUNGS: Unlabored breathing. Decreased intensity breath sounds always HEART: S1, S2, regular rate and rhythm. No loud murmur ABDOMEN: Soft, no tenderness EXTREMITIES: No edema of feet. SKIN: No rash, no masses palpable. NEUROLOGICAL: The patient is awake, alert, oriented x3, mood and affect normal. Results CBC & Chem 7: 06/17/24 12:07 06/17/24 20:00 Labs: Abnormal Lab Results - Last 24 Hours (Table) 06/17/24 06/17/24 Range/Units 12:07 12:07 Hgb 10.3 L (11.4-16.0) gm/dL Hct 32.6 L (34.0-46.0) % RDW 16.3 H (11.5-15.5) % Sodium 135 L (137-145) mmol/L Potassium 2.9 L (3.5-5.1) mmol/L BUN 4 L (7-17) mg/dL Creatinine 0.51 L (0.52-1.04) mg/dL Glucose 112 H (74-99) mg/dL C-Reactive Protein 1.7 H (<1.0) mg/dL Microbiology - Last 24 Hours (Table) 06/15/24 13:30 Blood Culture - Preliminary Blood Assessment and Plan (1) Fever Current Visit: Yes Status: Acute Code(s): R50.9 - FEVER, UNSPECIFIED SNOMED Code(s): 138688882 (2) Leukocytosis Current Visit: Yes Status: Acute Code(s): D72.829 - ELEVATED WHITE BLOOD CELL COUNT, UNSPECIFIED SNOMED Code(s): 154813840 (3) Abnormal MRI of head Current Visit: Yes Status: Acute Code(s): R93.0 - ABNORMAL FINDINGS ON DX IMAGING OF SKULL AND HEAD, NEC SNOMED Code(s): 935690998533065 Plan: 1patient presented to hospital with a seizure activity in this patient who did have a bronchoscopy biopsy for a nodule and mediastinal lymphadenopathy the day before patient was noticed to be restless and did have some mental status changes subsequently did have a fever and mild elevated white count has normalized now with abnormal MRI with a question of possible CVA encephalitis not entirely excluded, however the patient has recovered completely rather quick ly without getting any specific treatment for encephalitis we will make encephalitis to be less likely 2-await lumbar puncture scheduled for tomorrow and results will be followed 3-for now continue with empiric Rocephin 2 g daily Family at the bedside multiple question answered We will follow on clinical condition and cultures to further adjust medication if needed Thank you for this consultation we will follow the patient along with you Dictation was produced using ithinksport dictation software. please excuse any grammatical, word or spelling errors. Time with Patient: Greater than 30
[2024-06-18 07:48] LABS: Anisocytosis Slight; Basophils % (A) 1 %; Eosinophils # (A) 0.3 k/uL (0-0.7); Eosinophils % (A) 6 %; HCT 33.9 % (34.0-46.0); HGB 10.6 gm/dL (11.4-16.0); Hypochromasia Slight; Lymphocytes # (A) 0.8 k/uL (1.0-4.8); Lymphocytes % (A) 17 %; MCH 26.1 pg (25.0-35.0); MCHC 31.4 g/dL (31.0-37.0); MCV 83.3 fL (80.0-100.0); Mean Platelet Volume 7.6; Monocytes # (A) 0.3 k/uL (0-1.0); Monocytes % (A) 7 %; Neutrophils # (A) 3.3 k/uL (1.3-7.7); Neutrophils % (A) 68 %; Platelet Count 257 k/uL (150-450); RBC 4.08 m/uL (3.80-5.40); RDW 16.5 % (11.5-15.5); WBC 4.9 k/uL (3.8-10.6)
[2024-06-18] MEDS: LACOSAMIDE 50 MG TABLET PO SCH (08:04)
[2024-06-18 08:12] LABS: African American GFR (CKD) >90 (>60 ml/min/1.73 sqM); Anion Gap 10 mmol/L; Blood Urea Nitrogen 3 mg/dL (7-17); Calcium 8.4 mg/dL (8.4-10.2); Carbon Dioxide 23 mmol/L (22-30); Chloride 105 mmol/L (98-107); Glucose 88 mg/dL (74-99); Non-African American GFR(CKD) >90 (>60 ml/min/1.73 sqM); Potassium 3.7 mmol/L (3.5-5.1); Sodium 138 mmol/L (137-145)
[2024-06-18] MEDS: ALPRAZolam 0.5 MG TAB PO ONE (09:43)
--- NOTE | 2024-06-18 09:46 | P.PN ---
Subjective 63-year-old female, history of hypertension, hyperlipidemia, hypothyroidism, fibromyalgia, hyperlipidemia, GERD/gastritis, presenting to the emergency department with reported seizure. Patient did have lung biopsy done with Dr. Vazquez and yesterday. There was some bleeding that he reported to the . Yesterday evening patient was restless. Patient does get like that occasionally when she gets sick. History is taken from as patient is a poor historian and is restless. Today prior to arrival patient became less responsive and then had a generalized tonic-clonic seizure lasting around 3 minutes. Patient has been confused and restless since that time. History from patient is very limited and she has no complaints. Some of the workup during this hospital visit consisted of: Sodium is 135, initial serum glucose is 153, calcium is 9.2, magnesium is 1.4, AST is 54 ALT is 41 Plasma lactic acid venous 7.3. CT of the head is reported as no acute bleed or mass effect. I personally reviewed the CT and I agree there is no acute or subacute ischemic stroke. CT cervical spine no acute trauma. Mild degenerative changes. 24-hour interval change 06/17/2024 Patient is seen and evaluated with multiple family members at bedside; she is awake and alert and at baseline per family members; patient had an other brief seizure episode last night Vital signs are reviewed and remained stable MRI of the brain today reveals diffuse abnormal increased uniform signal intensity involving the right frontal cortex raising the question of postictal changes versus inflammatory such as encephalitis. Ischemic changes in the right frontal cortex is not excluded. No mass effect or midline shift. Lab review shows WBC 6.0, hemoglobin of 10.3 and platelet count of 230, sodium 135, potassium 2.9, BUNs/creatinine 4/0.51 -Neurology on board and dose of Keppra has been increased to 1500 mg twice daily; neurology planning to repeat MRI with contrast; stat EEG to be completed today; neurology recommending ID consult for low-grade fever and leukocytosis upon arrival to ED -Patient will receive KCl 40 mEq IV x 1; will repeat levels after infusion is completed 06/18 Patient seen and examined at bedside, daughter also at bedside. Patient's was admitted with altered mental status secondary to seizure activity, she had another seizure about 2 nights ago. Currently no more seizure while she is taking Keppra 1500 mg twice daily and Vimpat 50 mg twice daily. Today patient has no confusion, no weakness or new tingling. This confirmed with the daughter at bedside. As per daughter patient have some word finding difficulty but this is not a new for her. No headache dizziness. No other new complaint. No chest pain or dyspnea. No /GI symptoms. Patient seems mildly weak. She had MRI of the brain showing diffuse increase gyriform signal intensity involving the right frontal cortex possible surgical changes versus encephalitis versus ischemia. Neurologist on the case who recommended repeat MRI today. Also lumbar puncture is scheduled today per staff. Review of systems CONSTITUTIONAL: No fever, no malaise, no fatigue. HEENT: No recent visual problems or hearing problems. Denied any sore throat. CARDIOVASCULAR: No orthopnea, PND, no palpitations, no syncope. PULMONARY: No shortness of breath, no cough, no hemoptysis. HEMATOLOGICAL: Denies any bleeding or petechiae. GENITOURINARY: Denies any burning micturition, frequency, or urgency. MUSCULOSKELETAL/RHEUMATOLOGICAL: Denies any joint pain, swelling, or any muscle pain. Active Medications Generic Name Dose Route Start Last Admin Trade Name Luisq PRN Reason Stop Dose Admin Acetaminophen 650 mg 06/15/24 12:49 06/17/24 21:36 Acetaminophen Tab 325 Mg Tab PO 650 mg Q6HR PRN Administration Mild Pain or Fever > 100.5 Calcium Carbonate 1 each 06/16/24 09:00 06/18/24 08:04 Calcium Carb-Vit D 500 Mg-5 Mcg Tab PO 1 each DAILY KELLI Administration Cevimeline HCl 30 mg 06/16/24 09:00 06/18/24 08:06 Cevimeline 30 Mg Cap PO 30 mg BID KELLI Administration Cholecalciferol 50 mcg 06/16/24 09:00 06/18/24 08:03 Cholecalciferol 25 Mcg (1000 Iu) Tablet PO 50 mcg DAILY KELLI Administration Diltiazem HCl 180 mg 06/16/24 09:00 06/18/24 08:03 Diltiazem Cd 180 Mg Cap.Er.24h PO 180 mg DAILY KELLI Administration Duloxetine HCl 60 mg 06/16/24 09:00 06/18/24 08:04 Duloxetine Hcl 60 Mg Capsule.Dr PO 60 mg DAILY KELLI Administration Ferrous Sulfate 325 mg 06/16/24 09:00 06/18/24 08:04 Ferrous Sulfate 325 Mg Tab PO 325 mg DAILY KELLI Administration Haloperidol Lactate 1 mg 06/15/24 16:50 06/15/24 18:28 Haloperidol Lactate 5 Mg/Ml 1 Ml Vial IVP 1 mg Q4HR PRN Administration Agitation or Acute Psychosis Ceftriaxone Sodium 2 gm/ 50 mls @ 100 mls/hr 06/16/24 09:00 06/18/24 08:04 Sodium Chloride IVPB 100 mls/hr Q24HR KELLI Administration Protocol Sodium Chloride 1,000 mls @ 130 mls/hr 06/15/24 13:00 06/18/24 05:24 Saline 0.9% IV 130 mls/hr .Q7H42M KELLI Administration Isosorbide Mononitrate 30 mg 06/16/24 09:00 06/18/24 08:04 Isosorbide Mononitrate Er 30 Mg Tab.Er.24h PO 30 mg DAILY KELLI Administration Ketorolac Tromethamine 15 mg 06/15/24 23:26 06/17/24 12:28 Ketorolac 15 Mg/Ml 1 Ml Vial IVP 06/20/24 23:26 15 mg Q6HR PRN Administration Pain Lacosamide 50 mg 06/18/24 09:00 06/18/24 08:04 Lacosamide 50 Mg Tablet PO 50 mg BID KELLI Administration Lactobacillus Acidophilus 1 each 06/16/24 09:00 06/18/24 08:04 Lactobacillus Acidophilus/Pect 1 Each Capsule PO 1 each DAILY KELLI Administration Levetiracetam 1,500 mg 06/16/24 21:00 06/18/24 08:05 Levetiracetam Iv 500 Mg/5 Ml Vial IVP 1,500 mg Q12HR KELLI Administration Levetiracetam 1,000 mg 06/16/24 20:15 Levetiracetam Iv 500 Mg/5 Ml Vial IVP 06/23/24 20:14 ONCE PRN Seizures Levothyroxine Sodium 137 mcg 06/16/24 07:00 06/18/24 06:21 Levothyroxine 137 Mcg Tab PO 137 mcg DAILY@0700 KELLI Administration Lidocaine 2 patch 06/16/24 09:00 06/18/24 08:05 Lidocaine 4% Patch TOPICAL 2 patch DAILY KELLI Administration Protocol Lorazepam 1 mg 06/16/24 03:44 06/16/24 20:10 Lorazepam 2 Mg/Ml Inj IV 1 mg Q2HR PRN Administration Seizures Metoprolol Succinate 100 mg 06/16/24 09:00 06/18/24 08:04 Metoprolol Succinate (Er) 100 Mg Tab.Er.24h PO 100 mg DAILY KELLI Administration Multivit/Ca Carb/B Cmplx/FA/Prenat 1 each 06/16/24 09:00 06/18/24 08:07 Folic Acid-Vit B Complex-Vit C 1 Cap PO 1 each DAILY KELLI Administration Mycophenolate Mofetil 1,000 mg 06/16/24 09:00 06/18/24 08:06 Mycophenolate Mofetil 500 Mg Tab PO 1,000 mg BID KELLI Administration Naloxone HCl 0.2 mg 06/15/24 12:49 Naloxone 0.4 Mg/Ml 1 Ml Vial IV Q2M PRN Opioid Reversal Pantoprazole Sodium 40 mg 06/16/24 09:00 06/18/24 08:04 Pantoprazole 40 Mg Tablet PO 40 mg BID KELLI Administration Objective - Vital Signs Vital signs: Vital Signs Temp 98.5 F 06/18/24 08:00 Pulse 76 06/18/24 08:00 Resp 20 06/18/24 08:00 BP 162/83 06/18/24 08:00 Pulse Ox 97 06/18/24 08:00 FiO2 Intake & Output 06/17/24 06/18/24 06/18/24 18:59 06:59 18:59 Intake Total 20 20 Output Total 1925 2900 Balance -1905 -2880 Weight 71.3 kg Intake: IV 20 20 Invasive Line 1 10 Invasive Line 3 10 20 Output: Urine 1924 2900 Other: Voiding Method Indwelling Catheter Indwelling Catheter # Voids 2 1 # Bowel Movements 1 1 1 - Exam GENERAL: The patient is alert and oriented x3, not in any acute distress. Well developed, well nourished. HEENT: Pupils are round and equally reacting to light. EOMI. No scleral icterus. No conjunctival pallor. Normocephalic, atraumatic. No pharyngeal erythema. No thyromegaly. CARDIOVASCULAR: S1 and S2 present. No murmurs, rubs, or gallops. PULMONARY: Chest is clear to auscultation, no wheezing , no crackles. ABDOMEN: Soft, nontender, nondistended, normoactive bowel sounds. No palpable organomegaly. MUSCULOSKELETAL: No joint swelling or deformity. EXTREMITIES: No cyanosis, clubbing, or pedal edema. NEUROLOGICAL: Gross neurological examination did not reveal any focal deficits. SKIN: No rashes. no petechiae. - Labs CBC & Chem 7: 06/18/24 07:05 06/18/24 07:05 Labs: Abnormal Lab Results - Last 24 Hours (Table) 06/17/24 06/17/24 06/18/24 Range/Units 12:07 12:07 07:05 Hgb 10.3 L 10.6 L (11.4-16.0) gm/dL Hct 32.6 L 33.9 L (34.0-46.0) % RDW 16.3 H 16.5 H (11.5-15.5) % Lymphocytes # 0.8 L (1.0-4.8) k/uL Sodium 135 L (137-145) mmol/L Potassium 2.9 L (3.5-5.1) mmol/L BUN 4 L (7-17) mg/dL Creatinine 0.51 L (0.52-1.04) mg/dL Glucose 112 H (74-99) mg/dL C-Reactive Protein 1.7 H (<1.0) mg/dL 06/18/24 Range/Units 07:05 Hgb (11.4-16.0) gm/dL Hct (34.0-46.0) % RDW (11.5-15.5) % Lymphocytes # (1.0-4.8) k/uL Sodium (137-145) mmol/L Potassium (3.5-5.1) mmol/L BUN 3 L (7-17) mg/dL Creatinine (0.52-1.04) mg/dL Glucose (74-99) mg/dL C-Reactive Protein (<1.0) mg/dL Microbiology - Last 24 Hours (Table) 06/15/24 13:30 Blood Culture - Preliminary Blood Assessment and Plan Assessment: #. Altered mental status secondary to new onset seizures; patient does not have any history of seizure disorder; MRI of the brain showing diffuse increase gyriform signal intensity involving the right frontal cortex possible surgical changes versus encephalitis versus ischemia. #. Left upper lobe nodule; patient is status post lung biopsy on 06/14/2024 -We will consult pulmonary service; #. Hyperlipidemia; #. Hypertension; #. Anxiety/depression; #. Hypothyroidism; #. Coronary artery disease; #. History of thyroid cancer s/p resection, history of melanoma and squamous cell carcinoma s/p resection Plan: -Continue with IV Keppra 1500 mg twice daily and Vimpat 50 mg twice daily as per neurologist recommendation Continue with ceftriaxone with infectious disease consult Continue with IV hydration Plan for repeat MRI and lumbar puncture on 06/18 Pulmonary team consult Anesthesia team consult for lumbar puncture Further recommendation based on the clinical course DVT prophylaxis; SCDs CODE STATUS; full code Prognosis is guarded
--- NOTE | 2024-06-18 10:51 | MR ---
EXAMINATION TYPE: MR brain w con DATE OF EXAM: 06/18/2024 10:39 AM COMPARISON: None. CLINICAL INDICATION: Female, 63 years old with history of new onset seizure r/o brain mets, New onset seizure, evaluate for brain mets. Hx thyroid and skin cancer. TECHNIQUE: Multiplanar, multiecho imaging on a 3.0 Danielle magnet is performed through the brain. Stud y is performed within 24 hours of arrival to the hospital.Multiplanar, multiecho imaging on a 3.0 Purnima la magnet is performed through the knee. IV Contrast: 7 mL Gadavist (None, if empty) FINDINGS: The craniovertebral junction is normal. The pituitary is normal. Contrast images were obtained and compared with 06/16/2024 MRI brain. No suspicious enhancement is evident. The frontal region appears abnormal signal on the T1 postcontra st images. Subcortical white matter changes may be present as hypodensity on T1 sequences. IMPRESSION: 1. No suspicious enhancement through the right frontal gyrus. 2. Subcortical white matter changes appear remarkable change comparison. 3. No suspicious enhancement. [facility], , 06/18/2024 10:49 AM
[2024-06-18] MEDS ORDERED: Potassium Replacement Protocol 1 EACH MISC MISCELLANE PRN (15:45)
[2024-06-18] MEDS: POTASSIUM CHLORIDE ER 20 MEQ TAB.ER PO SCH (15:57)
[2024-06-18] MEDS: ALPRAZolam 0.25 MG TAB PO PRN (16:18)
--- NOTE | 2024-06-18 16:47 | P.PN ---
Subjective Progress Note Date: 06/18/24 I am following up with the patient and she has not had any further seizures yesterday or today. She has minimal headache. No further weakness. yesterday, I started her on Vimpat since had discharges on the EEG. Objective - Vital Signs Vital signs: Vital Signs Temp 98.0 F 06/18/24 15:55 Pulse 84 06/18/24 15:55 Resp 16 06/18/24 15:55 BP 152/81 06/18/24 15:55 Pulse Ox 97 06/18/24 15:55 FiO2 Intake & Output 06/17/24 06/18/24 06/18/24 18:59 06:59 18:59 Intake Total 20 20 138 Output Total 1924 2900 Balance -190 -0 138 Weight 71.3 kg Intake: IV 20 20 20 Invasive Line 1 10 Invasive Line 3 10 20 20 Oral 118 Output: Urine 19240 Other: Voiding Method Indwelling Catheter Indwelling Catheter Indwelling Catheter # Voids 2 1 # Bowel Movements 1 1 1 - Exam General: Lying in bed and is not in acute distress. Neuro: Patient is awake, alert, oriented to self, place and time. Is following simple commands. No aphasia. No facial weakness. No dysarthria. Motor the strength 5/5 throughout. Some of the workup during this hospital visit consisted of: Sodium is 135, initial serum glucose is 153, calcium is 9.2, magnesium is 1.4, AST is 54 ALT is 41 Plasma lactic acid venous 7.3. CT of the head is reported as no acute bleed or mass effect. I personally reviewed the CT and I agree there is no acute or subacute ischemic stroke. CT cervical spine no acute trauma. Mild degenerative changes. MRI Brain w/o: Diffuse abnormal increased gyriform signal intensity involving the right frontal cortex raising the question of the postsurgical changes vs infllamatory change such as encephalitis. Ischemic changes in the right frontal cortex in not excluded. No mass effect or shift of midline structures. MRI of the brain with gadolinium is reported as no suspicious enhancement in the right frontal gyrus. Subcortical white matter changes appears unremarkable change comparison. No suspicious enhancement. EEG on 06/17/2024: Is abnormal EEG. The background is normal. Epileptiform discharge over the right frontal and central region increases risk for focal seizure as well as status epilepticus. The focal slowing over the right frontal central and temporal region is suggestive of underlying focal cerebral dysfunction in the involved region. No seizures noted during the study. - Labs CBC & Chem 7: 06/18/24 07:05 06/18/24 07:05 Labs: Abnormal Lab Results - Last 24 Hours (Table) 06/18/24 06/18/24 Range/Units 07:05 07:05 Hgb 10.6 L (11.4-16.0) gm/dL Hct 33.9 L (34.0-46.0) % RDW 16.5 H (11.5-15.5) % Lymphocytes # 0.8 L (1.0-4.8) k/uL BUN 3 L (7-17) mg/dL Microbiology - Last 24 Hours (Table) 06/15/24 13:30 Blood Culture - Preliminary Blood Assessment and Plan Assessment: This is a 63-year-old woman with history of thyroid cancer, squamous cell cancer and melanoma status post resection who had a lung biopsy yesterday as an outpatient and after the procedure the noted that the patient was agitated, groggy and had left-sided weakness and he noticed the symptoms yesterday around 3:30-4pm. Today the patient had seizure-like activity in which she had generalized tonic-clonic activity lasting for 2 minutes and continued to have weakness over the left side. She was agitated restless in the ER and was given multiple doses of Ativan. New onset seizure. And had seizure at night for the last could days--stable for at least 36 hours and no further seizure. On EEG has discharges over the right fronto-central region. Unsure exact cause of seizure. Rule due to result of underlying [employer] infection (had low grade fever first day and mild leukocytosis--resolved) vs ?stroke. MRI Brain is negative for any enhancement. Acute significant left hemiparesis due to Patrick's paralysis--resolved History of thyroid cancer status post thyroidectomy History of Sjogren History of scleroderma History of Raynaud's History of squamous cell cancer status post resection History of melanoma status post resection History of bowel resection due to her scleroderma Fibromyalgia Underlying history of hypertension Marijuana use Plan: Continue 1.5gm bid. Yesterday I added Vimpat 50mg bid. Today, patient is doing better. I consulted anesthesiology team for CSF study. I was updated by nurse that they cannot perform it, so therefore I will attempt and she was in agreement. Consulted I.D. team for patient episode low grade fever and leukocytosis on presentation. Please avoid restraints since while in the ER was making her more agitated and restless. Continue Ativan 1 mg every 2 hours as needed for seizures Seizure precautions seizure pads Pulmonary team is consulted Defer the rest of the medical management the primary and other specialist next Plan discussed with patient's and her daughter who is at bedside. Will continue to follow. Time with Patient: Less than 30
--- NOTE | 2024-06-18 16:57 | P.PN ---
Subjective Progress Note Date: 06/18/24 Principal diagnosis: Seizure disorder. This is a pleasant 63-year-old female patient with a known history of fibromyalgia, hypertension, hyperlipidemia, thyroid cancer status post thyroidectomy, Sjogren's syndrome, scleroderma, Raynaud's syndrome, former smoker, vapor. She is known to have a left upper lobe pulmonary nodule measuring 15 mm in size with mediastinal lymphadenopathy. She was here electively on 06/14/2024 for robotic assisted lung biopsy and EBUS peritracheal l ymph node biopsy. She was recovered and discharged to home. Later that same night she was having issues with restlessness, agitation and developed new onset seizures. She was brought back to the emergency room the following morning. Chest x-ray revealed scattered interstitial opacities. No evidence of pneumothorax. CT scan of the head revealed no acute bleed or mass effect. No acute trauma to the cervical spine. MRI of the brain today reveals diffuse abnormal increased uniform signal intensity involving the right frontal cortex raising the question of postictal changes versus inflammatory such as encephalitis. Ischemic changes in the right frontal cortex is not excluded. No mass effect or midline shift. Neurology had been consulted. She did have a seizure at approximately 3:30 this morning receiving Ativan. She is seen today in consultation on the selective care unit. She is currently resting fairly comfortably in bed. Seizure precautions in place. She denies any shortness of breath, cough or congestion. No hemoptysis. Maintaining O2 saturations in the upper 90s on room air. Afebrile. Hemodynamically stable. Patient was seen today on 06/17/2024, doing well, however last night she had another brief seizure episode, neurology has been notified. Remains on Kera, MRI of the brain was noted radiologist was concerned about some postictal findings noted on the MRI. There was no evidence of metastasis to the brain. And no specific abnormality. EEG is pending. Progress note dated June 18, 2024. 63-year-old female who was referred to Dr. Sumner, for robotic bronchoscopy and endobronchial ultrasound. The patient had the procedure done, on June 14 . She was readmitted to the hospital, the following day, with new onset seizure. She has a left upper lobe pulmonary nodule, and mediastinal adenopathy. Currently she is on room air. She is not receiving any IV fluids. Biopsy results are currently pending. The patient is scheduled to have a lumbar puncture today, and is being seen by neurology. White count 4.9, hemoglobin 10.6, hematocrit 33.9, platelet count normal. Sodium 138, potassium 3.7, chlorides 105, CO2 23, anion gap 10, BUN 3, creatinine 0.59. Calcium is normal. Procalcitonin level is normal. Brain MRI, shows no suspicious enhancement through the right frontal gyrus. Objective - Vital Signs Vital signs: Vital Signs Temp 98.0 F 06/18/24 15:55 Pulse 84 06/18/24 15:55 Resp 16 06/18/24 15:55 BP 152/81 06/18/24 15:55 Pulse Ox 97 06/18/24 15:55 FiO2 Intake & Output 06/17/24 06/18/24 06/18/24 18:59 06:59 18:59 Intake Total 20 20 138 Output Total 5 2900 Balance -1905 -2880 138 Weight 71.3 kg Intake: IV 20 20 20 Invasive Line 1 10 Invasive Line 3 10 20 20 Oral 118 Output: Urine 1924 2900 Other: Voiding Method Indwelling Catheter Indwelling Catheter Indwelling Catheter # Voids 2 1 # Bowel Movements 1 1 1 - Exam No acute distress, oriented 3. HEENT examination is grossly unremarkable. Mucous membranes are moist. No oral lesions. Neck supple. Full range of motion. No adenopathy thyromegaly or neck vein distention. Cardiovascular examination reveals regular rhythm rate. S1-S2 normal. No S3 or S4. No discernible murmur noted. Lungs reveal clear breath sounds. Breath sounds are equal bilaterally. No adventitious lung sounds including wheezes rhonchi or crackles. Abdomen soft bowel sounds are heard. No masses or tenderness. Extremities are intact. No cyanosis clubbing or edema. Skin is without rash or lesion. Neurologic examination is brief but nonfocal. - Labs CBC & Chem 7: 06/18/24 07:05 06/18/24 07:05 Labs: Abnormal Lab Results - Last 24 Hours (Table) 06/18/24 06/18/24 Range/Units 07:05 07:05 Hgb 10.6 L (11.4-16.0) gm/dL Hct 33.9 L (34.0-46.0) % RDW 16.5 H (11.5-15.5) % Lymphocytes # 0.8 L (1.0-4.8) k/uL BUN 3 L (7-17) mg/dL Microbiology - Last 24 Hours (Table) 06/15/24 13:30 Blood Culture - Preliminary Blood Assessment and Plan Assessment: New onset seizure of unclear etiology. Left upper lobe pulmonary nodule, 15 mm, with mediastinal adenopathy, status post robotically assisted biopsy of the left upper lobe pulmonary nodule, and needle aspirate paratracheal lymph node, June 14. Pathology is currently pending. History of fibromyalgia. History of hypertension. History of hyperlipidemia. History of Sjogren syndrome. History of scleroderma. History of Raynaud's syndrome. Thyroid cancer, status post thyroidectomy. History of previous tobacco use. History of vaping. Plan: Plan dated June 18, 2024. The patient is seen today in room 364. Thus far, pathology is currently pending. The patient is on room air. No IV fluids. MRI showed no unusual enhancement. Lumbar puncture is pending. Labs, x-rays, medications are reviewed. The patient is resting comfortably. The daughter was in the room with the patient, taking notes. We will continue to follow the patient, make recommendations along the way. The patient continues on Keppra. Time with Patient: Less than 30
--- NOTE | 2024-06-18 18:42 | P.PN ---
Progress Note - Text Progress Note Date: 06/18/24 I attempted the lumbar puncture and attempted at two different sites but was unsuccessful. The patient was in pain so aborted the procedure. Patient has minimal bleeding. No focal deficits noted toward end. Will have anesthesiologist/pain specialist tomorrow to attempt.
[2024-06-19] MEDS: NICOTINE 14MG/24HR PATCH TRANSDERM SCH (08:13)
--- NOTE | 2024-06-19 08:47 | P.PCN ---
Description of Procedure: Preprocedure diagnosis. Mental status change. Seizure. Postprocedure diagnosis. As above. Procedure done. Lumbar puncture and collection of cerebrospinal fluid. Anesthesia. Local infiltration with anesthetics. Continuous pulse ox, EKG, blood pressure and verbal communication was maintained with the patient. Blood loss. None. Indication. Discussed the procedure, alternatives, complications which may include infection, nerve damage, paralysis, aggravation of the symptoms especially bleeding in the spine and posterior dural puncture headache with the patient. The patient understands and questions were answered. Procedure note. After getting concentration in the procedure room in sitting position. Back prepped with chlorhexidine and draped in sterile fashion. After injecting 3 mL of 1% lidocaine subcutaneously, a 22-gauge spinal needle was introduced at L45 interspace. Positive CSF, negative blood, negative paresthesia. CSF color was clear. CSF pressure was not measured. CSF was collected in 4 supplied sterol containers in sequence. Spinal needle was taken out and bandage was applied. Disposition. Patient tolerated the procedure well. No complication. Advised patient to lay flat one-hour postprocedure. The rest of the day today try to lay flat as much as possible. Next 3 days drink lots of fluid especially caffeinated beverages, and avoid constipation cough and doing strenuous physical work.
--- NOTE | 2024-06-19 08:55 | P.PN ---
Subjective Progress Note Date: 06/18/24 Principal diagnosis: Reason for follow-up is fever abnormal MRI Patient is a 63-year-old female with a past medical history significant for hypertension hyperlipidemia osteomyelitis reflux fibromyalgia Sjogren's syndrome with a recent lung nodule biopsy subsequent admission to hospital with mental status changes and creation did have low-grade fever abnormal MRI prompting this consultation. On today's evaluation that is 06/18/2024, patient has been afebrile, patient is breathing comfortably and is currently on room air, patient denies having any significant cough no chest pain, patient denies nausea vomiting or diarrhea and no abdominal pain, overall feeling better. Patient white count is 4.9 creatinine 0.59 Objective - Vital Signs Vital signs: Vital Signs Temp 98.5 F 06/18/24 08:00 Pulse 76 06/18/24 08:00 Resp 20 06/18/24 08:00 BP 162/83 06/18/24 08:00 Pulse Ox 97 06/18/24 08:00 FiO2 Intake & Output 06/17/24 06/18/24 06/18/24 18:59 06:59 18:59 Intake Total 20 20 10 Output Total 1925 2900 Balance -1903 -2880 10 Weight 71.3 kg Intake: IV 20 20 10 Invasive Line 1 10 Invasive Line 3 10 20 10 Output: Urine 1925 2900 Other: Voiding Method Indwelling Catheter Indwelling Catheter Indwelling Catheter # Voids 2 1 # Bowel Movements 1 1 1 - Exam GENERAL DESCRIPTION: Middle-age female lying in bed in no distress RESPIRATORY SYSTEM: Unlabored breathing , decreased breath sounds at bases HEART: S1 S2 regular rate and rhythm , ABDOMEN: Soft , no tenderness EXTREMITIES: No edema feet - Labs CBC & Chem 7: 06/18/24 07:05 06/18/24 07:05 Labs: Abnormal Lab Results - Last 24 Hours (Table) 06/17/24 06/18/24 06/18/24 Range/Units 12:07 07:05 07:05 Hgb 10.6 L (11.4-16.0) gm/dL Hct 33.9 L (34.0-46.0) % RDW 16.5 H (11.5-15.5) % Lymphocytes # 0.8 L (1.0-4.8) k/uL Sodium 135 L (137-145) mmol/L Potassium 2.9 L (3.5-5.1) mmol/L BUN 4 L 3 L (7-17) mg/dL Creatinine 0.51 L (0.52-1.04) mg/dL Glucose 112 H (74-99) mg/dL C-Reactive Protein 1.7 H (<1.0) mg/dL Microbiology - Last 24 Hours (Table) 06/15/24 13:30 Blood Culture - Preliminary Blood Assessment and Plan (1) Fever Current Visit: Yes Status: Acute Code(s): R50.9 - FEVER, UNSPECIFIED SNOMED Code(s): 445391376 (2) Leukocytosis Current Visit: Yes Status: Acute Code(s): D72.829 - ELEVATED WHITE BLOOD CELL COUNT, UNSPECIFIED SNOMED Code(s): 547947639 (3) Abnormal MRI of head Current Visit: Yes Status: Acute Code(s): R93.0 - ABNORMAL FINDINGS ON DX IMAGING OF SKULL AND HEAD, NEC SNOMED Code(s): 414870287534924 Plan: 1patient presented to hospital with a seizure activity in this patient who did have a bronchoscopy biopsy for a nodule and mediastinal lymphadenopathy the day before patient was noticed to be restless and did have some mental status changes subsequently did have a fever and mild elevated white count has normalized now with abnormal MRI with a question of possible CVA encephalitis not entirely excluded, however the patient has recovered completely rather quickly without getting any specific treatment for encephalitis we will make encephalitis to be less likely 2-await lumbar puncture scheduled for this afternoon and results will be followed 3-for now continue with empiric Rocephin 2 g daily and monitor clinical course closely Daughter at the bedside multiple question answered Dictation was produced using [employer] dictation software. please excuse any grammatical, word or spelling errors. Time with Patient: Less than 30
[2024-06-19] MEDS ORDERED: ALPRAZolam 0.5 MG TAB PO PRN (09:42)
--- NOTE | 2024-06-19 09:54 | P.PN ---
Subjective 63-year-old female, history of hypertension, hyperlipidemia, hypothyroidism, fibromyalgia, hyperlipidemia, GERD/gastritis, presenting to the emergency department with reported seizure. Patient did have lung biopsy done with Dr. Vazquez and yesterday. There was some bleeding that he reported to the . Yesterday evening patient was restless. Patient does get like that occasionally when she gets sick. History is taken from as patient is a poor historian and is restless. Today prior to arrival patient became less responsive and then had a generalized tonic-clonic seizure lasting around 3 minutes. Patient has been confused and restless since that time. History from patient is very limited and she has no complaints. Some of the workup during this hospital visit consisted of: Sodium is 135, initial serum glucose is 153, calcium is 9.2, magnesium is 1.4, AST is 54 ALT is 41 Plasma lactic acid venous 7.3. CT of the head is reported as no acute bleed or mass effect. I personally reviewed the CT and I agree there is no acute or subacute ischemic stroke. CT cervical spine no acute trauma. Mild degenerative changes. 24-hour interval change 06/17/2024 Patient is seen and evaluated with multiple family members at bedside; she is awake and alert and at baseline per family members; patient had an other brief seizure episode last night Vital signs are reviewed and remained stable MRI of the brain today reveals diffuse abnormal increased uniform signal intensity involving the right frontal cortex raising the question of postictal changes versus inflammatory such as encephalitis. Ischemic changes in the right frontal cortex is not excluded. No mass effect or midline shift. Lab review shows WBC 6.0, hemoglobin of 10.3 and platelet count of 230, sodium 135, potassium 2.9, BUNs/creatinine 4/0.51 -Neurology on board and dose of Keppra has been increased to 1500 mg twice daily; neurology planning to repeat MRI with contrast; stat EEG to be completed today; neurology recommending ID consult for low-grade fever and leukocytosis upon arrival to ED -Patient will receive KCl 40 mEq IV x 1; will repeat levels after infusion is completed 06/18 Patient seen and examined at bedside, daughter also at bedside. Patient's was admitted with altered mental status secondary to seizure activity, she had another seizure about 2 nights ago. Currently no more seizure while she is taking Keppra 1500 mg twice daily and Vimpat 50 mg twice daily. Today patient has no confusion, no weakness or new tingling. This confirmed with the daughter at bedside. As per daughter patient have some word finding difficulty but this is not a new for her. No headache dizziness. No other new complaint. No chest pain or dyspnea. No /GI symptoms. Patient seems mildly weak. She had MRI of the brain showing diffuse increase gyriform signal intensity involving the right frontal cortex possible surgical changes versus encephalitis versus ischemia. Neurologist on the case who recommended repeat MRI today. Also lumbar puncture is scheduled today per staff. 06/19 Patient is lying in bed after she had lumbar puncture done today. Yesterday she could not get it done. Patient herself feels much better. She was to see physical therapy later on today which was ordered. No headache dizziness, no weakness tingling or numbness No other new complaint The patient and daughter discussed her discharge planning and follow-up recommendations with me. They agree to follow-up with neurologist as an outpatient once they cleared Currently she is kept on IV Keppra and p.o. Lamictal. Repeat MRI of the brain: No enhancement of the right frontal gyrus Objective - Vital Signs Vital signs: Vital Signs Temp 98.3 F 06/19/24 08:00 Pulse 107 H 06/19/24 08:00 Resp 16 06/19/24 08:00 BP 138/74 06/19/24 08:00 Pulse Ox 97 06/19/24 08:00 FiO2 Intake & Output 06/18/24 06/19/24 06/19/24 18:59 06:59 18:59 Intake Total 138 20 Balance 138 20 Weight 71.5 kg Intake: IV 20 20 Invasive Line 3 20 20 Oral 118 Other: Voiding Method Indwelling Catheter Bedside Commode # Voids 2 1 # Bowel Movements 2 - Exam GENERAL: The patient is alert and oriented x3, not in any acute distress. Well developed, well nourished. HEENT: Pupils are round and equally reacting to light. EOMI. No scleral icterus. No conjunctival pallor. Normocephalic, atraumatic. No pharyngeal erythema. No thyromegaly. CARDIOVASCULAR: S1 and S2 present. No murmurs, rubs, or gallops. PULMONARY: Chest is clear to auscultation, no wheezing , no crackles. ABDOMEN: Soft, nontender, nondistended, normoactive bowel sounds. No palpable organomegaly. MUSCULOSKELETAL: No joint swelling or deformity. EXTREMITIES: No cyanosis, clubbing, or pedal edema. NEUROLOGICAL: Gross neurological examination did not reveal any focal deficits. SKIN: No rashes. no petechiae. - Labs CBC & Chem 7: 06/18/24 07:05 06/18/24 07:05 Labs: Microbiology - Last 24 Hours (Table) 06/15/24 13:30 Blood Culture - Preliminary Blood Assessment and Plan Assessment: #. Altered mental status secondary to new onset seizures; patient does not have any history of seizure disorder; MRI of the brain showing diffuse increase gyriform signal intensity involving the right frontal cortex possible surgical changes versus encephalitis versus ischemia. #. Left upper lobe nodule; patient is status post lung biopsy on 06/14/2024 -We will consult pulmonary service; #. Hyperlipidemia; #. Hypertension; #. Anxiety/depression; #. Hypothyroidism; #. Coronary artery disease; #. History of thyroid cancer s/p resection, history of melanoma and squamous cell carcinoma s/p resection Plan: -Continue with IV Keppra 1500 mg twice daily and Vimpat 50 mg twice daily as per neurologist recommendation Continue with ceftriaxone with infectious disease consult Continue with IV hydration P reviewed MRI of the brain: No enhancement of the right frontal gyrus Follow-up lumbar puncture from 06/19. Pulmonary team consult Anesthesia team consult for lumbar puncture Further recommendation based on the clinical course DVT prophylaxis; SCDs CODE STATUS; full code Prognosis is guarded
[2024-06-19 10:52] LABS: Appearance,CSF Clear; CSF Tube Number 4; Nucleated Cells, CSF 0 u/L (0-5); Red Blood Cell,CSF 17 u/L (0-10)
[2024-06-19 11:08] LABS: Red Blood Cell, CSF Crenated 0 %; Red Blood Cell, CSF Fresh 100 %
[2024-06-19 11:24] LABS: Glucose,CSF 64 mg/dL (40-70); Total Protein,CSF 44 mg/dL (12-60)
--- NOTE | 2024-06-19 14:20 | P.PN ---
Subjective Progress Note Date: 06/19/24 Principal diagnosis: Seizure disorder. This is a pleasant 63-year-old female patient with a known history of fibromyalgia, hypertension, hyperlipidemia, thyroid cancer status post thyroidectomy, Sjogren's syndrome, scleroderma, Raynaud's syndrome, former smoker, vapor. She is known to have a left upper lobe pulmonary nodule measuring 15 mm in size with mediastinal lymphadenopathy. She was here electively on 06/14/2024 for robotic assisted lung biopsy and EBUS peritracheal l ymph node biopsy. She was recovered and discharged to home. Later that same night she was having issues with restlessness, agitation and developed new onset seizures. She was brought back to the emergency room the following morning. Chest x-ray revealed scattered interstitial opacities. No evidence of pneumothorax. CT scan of the head revealed no acute bleed or mass effect. No acute trauma to the cervical spine. MRI of the brain today reveals diffuse abnormal increased uniform signal intensity involving the right frontal cortex raising the question of postictal changes versus inflammatory such as encephalitis. Ischemic changes in the right frontal cortex is not excluded. No mass effect or midline shift. Neurology had been consulted. She did have a seizure at approximately 3:30 this morning receiving Ativan. She is seen today in consultation on the selective care unit. She is currently resting fairly comfortably in bed. Seizure precautions in place. She denies any shortness of breath, cough or congestion. No hemoptysis. Maintaining O2 saturations in the upper 90s on room air. Afebrile. Hemodynamically stable. Patient was seen today on 06/17/2024, doing well, however last night she had another brief seizure episode, neurology has been notified. Remains on [facility], MRI of the brain was noted radiologist was concerned about some postictal findings noted on the MRI. There was no evidence of metastasis to the brain. And no specific abnormality. EEG is pending. Progress note dated June 18, 2024. 63-year-old female who was referred to Dr. Sumner, for robotic bronchoscopy and endobronchial ultrasound. The patient had the procedure done, on June 14 . She was readmitted to the hospital, the following day, with new onset seizure. She has a left upper lobe pulmonary nodule, and mediastinal adenopathy. Currently she is on room air. She is not receiving any IV fluids. Biopsy results are currently pending. The patient is scheduled to have a lumbar puncture today, and is being seen by neurology. White count 4.9, hemoglobin 10.6, hematocrit 33.9, platelet count normal. Sodium 138, potassium 3.7, chlorides 105, CO2 23, anion gap 10, BUN 3, creatinine 0.59. Calcium is normal. Procalcitonin level is normal. Brain MRI, shows no suspicious enhancement through the right frontal gyrus. Progress note dated June 19, 2024. 63-year-old female who had a bronchoscopy performed, by my partner, on June 14. The patient was readmitted to the hospital, the following day, with a new onset seizure. The patient has a history of a left upper lobe pulmonary nodule, and some mediastinal adenopathy. Currently, the path results are pending. She is currently on room air. She is receiving saline at 130 cc an hour. No new labs today. Labs from yesterday are reviewed. Objective - Vital Signs Vital signs: Vital Signs Temp 98.3 F 06/19/24 08:00 Pulse 86 06/19/24 11:33 Resp 20 06/19/24 11:33 BP 141/78 06/19/24 11:33 Pulse Ox 97 06/19/24 11:33 FiO2 Intake & Output 06/18/24 06/19/24 06/19/24 18:59 06:59 18:59 Intake Total 138 20 10 Balance 138 20 10 Weight 71.5 kg Intake: IV 20 20 10 Invasive Line 3 20 20 10 Oral 118 Other: Voiding Method Indwelling Catheter Bedside Commode Bedside Commode # Voids 2 1 1 # Bowel Movements 2 - Exam No acute distress, oriented 3. HEENT examination is grossly unremarkable. Mucous membranes are moist. No oral lesions. Neck supple. Full range of motion. No adenopathy thyromegaly or neck vein d istention. Cardiovascular examination reveals regular rhythm rate. S1-S2 normal. No S3 or S4. No discernible murmur noted. Lungs reveal clear breath sounds. Breath sounds are equal bilaterally. No adventitious lung sounds including wheezes rhonchi or crackles. Abdomen soft bowel sounds are heard. No masses or tenderness. Extremities are intact. No cyanosis clubbing or edema. Skin is without rash or lesion. Neurologic examination is brief but nonfocal. - Labs CBC & Chem 7: 06/18/24 07:05 06/18/24 07:05 Labs: Abnormal Lab Results - Last 24 Hours (Table) 06/19/24 Range/Units 08:22 CSF RBC 17 H (0-10) u/L Microbiology - Last 24 Hours (Table) 06/15/24 13:30 Blood Culture - Preliminary Blood Assessment and Plan Assessment: New onset seizure of unclear etiology. Left upper lobe pulmonary nodule, 15 mm, with mediastinal adenopathy, status post robotically assisted biopsy of the left upper lobe pulmonary nodule, and needle aspirate paratracheal lymph node, June 14. Pathology is currently pending. History of fibromyalgia. History of hypertension. History of hyperlipidemia. History of Sjogren syndrome. History of scleroderma. History of Raynaud's syndrome. Thyroid cancer, status post thyroidectomy. History of previous tobacco use. History of vaping. Plan: Plan dated June 18, 2024. The patient is seen today in room 364. Thus far, pathology is currently pe nding. The patient is on room air. No IV fluids. MRI showed no unusual enhancement. Lumbar puncture is pending. Labs, x-rays, medications are reviewed. The patient is resting comfortably. The daughter was in the room with the patient, taking notes. We will continue to follow the patient, make recommendations along the way. The patient continues on Keppra. Plan dated June 19, 2024. The patient is seen today in room 364. Currently, she is on room air. She is receiving saline at 130 cc an hour. Labs, x-rays, medications are reviewed. The patient is doing reasonably well and she has had no further seizure activity. The patient did have a lumbar puncture, and glucose was 64. Protein was 44. There were 17 RBCs. We will continue to follow, make recommendations along the way. The pathology reports, currently still pending. No additional recommendations are made at this time. Time with Patient: Less than 30
--- NOTE | 2024-06-19 14:27 | P.PN ---
Subjective Progress Note Date: 06/19/24 Principal diagnosis: Reason for follow-up is fever abnormal MRI Patient is a 63-year-old female with a past medical history significant for hypertension hyperlipidemia osteomyelitis reflux fibromyalgia Sjogren's syndrome with a recent lung nodule biopsy subsequent admission to hospital with mental status changes and creation did have low-grade fever abnormal MRI prompting this consultation. On today's evaluation that is 06/19/2024, Patient is afebrile this morning patient denies having any chest pain shortness of breath or cough, the patient is currently on room air, patient denies any abdominal pain no diarrhea no nausea no vomiting, patient mention feeling better. Patient did have LP completed this morning with no WBC or glucose protein normal Objective - Vital Signs Vital signs: Vital Signs Temp 98.3 F 06/19/24 08:00 Pulse 107 H 06/19/24 08:00 Resp 16 06/19/24 08:00 BP 138/74 06/19/24 08:00 Pulse Ox 97 06/19/24 08:00 FiO2 Intake & Output 06/18/24 06/19/24 06/19/24 18:59 06:59 18:59 Intake Total 138 20 10 Balance 138 20 10 Weight 71.5 kg Intake: IV 20 20 10 Invasive Line 3 20 20 10 Oral 118 Other: Voiding Method Indwelling Catheter Bedside Commode # Voids 2 1 # Bowel Movements 2 - Exam GENERAL DESCRIPTION: Middle-age female lying in bed in no distress RESPIRATORY SYSTEM: Unlabored breathing , decreased breath sounds at bases HEART: S1 S2 regular rate and rhythm , ABDOMEN: Soft , no tenderness EXTREMITIES: No edema feet - Labs CBC & Chem 7: 06/18/24 07:05 06/18/24 07:05 Labs: Abnormal Lab Results - Last 24 Hours (Table) 06/19/24 Range/Units 08:22 CSF RBC 17 H (0-10) u/L Microbiology - Last 24 Hours (Table) 06/15/24 13:30 Blood Culture - Preliminary Blood Assessment and Plan (1) Fever Current Visit: Yes Status: Acute Code(s): R50.9 - FEVER, UNSPECIFIED SNOMED Code(s): 696807479 (2) Leukocytosis Current Visit: Yes Status: Acute Code(s): D72.829 - ELEVATED WHITE BLOOD CELL COUNT, UNSPECIFIED SNOMED Code(s): 681392901 (3) Abnormal MRI of head Current Visit: Yes Status: Acute Code(s): R93.0 - ABNORMAL FINDINGS ON DX IMAGING OF SKULL AND HEAD, NEC SNOMED Code(s): 606037904792219 Plan: 1patient presented to hospital with a seizure activity in this patient who did have a bronchoscopy biopsy for a nodule and mediastinal lymphadenopathy the day before patient was noticed to be restless and did have some mental status changes subsequently did have a fever and mild elevated white count has normalized now with abnormal MRI with a question of possible CVA encephalitis not entirely excluded, however the patient has recovered completely rather quickly without getting any specific treatment for encephalitis we will make encephalitis to be less likely 2-patient did have lumbar puncture completed morning of 06/19/2024 did have normal glucose protein white count normal not suggestive of encephalitis results has been discussed with the daughter and the patient 3-patient is currently on empiric Rocephin which can be safely discontinued as no obvious focus of infection Daughter at the bedside multiple question answered Dictation was produced using [employer] dictation software. please excuse any grammatical, word or spelling errors. Time with Patient: Less than 30
--- NOTE | 2024-06-19 17:45 | P.PN ---
Subjective Progress Note Date: 06/19/24 I am following up with the patient and patient states that she is doing drastically better. She continues not to have any further seizures. She does have describes as a claudoscope over both eyes when she closes her eyes for the past 3 days but is improving. No further weakness on left side. Denies of any headache. She had lumbar puncture today. Objective - Vital Signs Vital signs: Vital Signs Temp 98.0 F 06/19/24 17:36 Pulse 84 06/19/24 17:36 Resp 18 06/19/24 17:36 BP 136/82 06/19/24 17:36 Pulse Ox 96 06/19/24 17:36 FiO2 Intake & Output 06/18/24 06/19/24 06/19/24 18:59 06:59 18:59 Intake Total 138 20 30 Balance 138 20 30 Weight 71.5 kg Intake: IV 20 20 30 Invasive Line 3 20 20 30 Oral 118 Other: Voiding Method Indwelling Catheter Bedside Commode Bedside Commode # Voids 2 1 1 # Bowel Movements 2 - Exam General: Lying in bed and is not in acute distress. Neuro: Patient is awake, alert, oriented to self, place and time. Is following simple commands. No aphasia. No facial weakness. No dysarthria. Motor the strength 5/5 throughout. Some of the workup during this hospital visit consisted of: Sodium is 135, initial serum glucose is 153, calcium is 9.2, magnesium is 1.4, AST is 54 ALT is 41 Plasma lactic acid venous 7.3. CT of the head is reported as no acute bleed or mass effect. I personally reviewed the CT and I agree there is no acute or subacute ischemic stroke. CT cervical spine no acute trauma. Mild degenerative changes. MRI Brain w/o: Diffuse abnormal increased gyriform signal intensity involving the right frontal cortex raising the question of the postsurgical changes vs infllamatory change such as encephalitis. Ischemic changes in the right frontal cortex in not excluded. No mass effect or shift of midline structures. MRI of the brain with gadolinium is reported as no suspicious enhancement in the right frontal gyrus. Subcortical white matter changes appears unremarkable change comparison. No suspicious enhancement. EEG on 06/17/2024: Is abnormal EEG. The background is normal. Epileptiform discharge over the right frontal and central region increases risk for focal seizure as well as status epilepticus. The focal slowing over the right frontal central and temporal region is suggestive of underlying focal cerebral dysfunction in the involved region. No seizures noted during the study. CSF: It is clear, colorless, total nucleated cells 0, red blood cells 100, glucose 64 total protein is 44 - Labs CBC & Chem 7: 06/18/24 07:05 06/18/24 07:05 Labs: Abnormal Lab Results - Last 24 Hours (Table) 06/19/24 Range/Units 08:22 CSF RBC 17 H (0-10) u/L Microbiology - Last 24 Hours (Table) 06/15/24 13:30 Blood Culture - Preliminary Blood Assessment and Plan Assessment: This is a 63-year-old woman with history of thyroid cancer, squamous cell cancer and melanoma status post resection who had a lung biopsy yesterday as an outpatient and after the procedure the noted that the patient was a gitated, groggy and had left-sided weakness and he noticed the symptoms yesterday around 3:30-4pm. Today the patient had seizure-like activity in which she had generalized tonic-clonic activity lasting for 2 minutes and continued to have weakness over the left side. She was agitated restless in the ER and was given multiple doses of Ativan. New onset seizure. --stable for > 48 hours and no further seizure. On EEG has discharges over the right fronto-central region. Unsure exact cause of seizure. CSF study is normal. MRI Brain has FLAIR changes over the right frontal and likely due to her seizure. MRI Brain is negative for any enhancement. 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 I.D. is on board. Recommend an EEG as an outpatient for further evaluation I spoke with the reading radiologist today (Dr. Joy). The MRI of the brain and he felt was not a stroke in his opinion as well as since the CSF was negative this did not seem encephalitis and he felt the flair changes on the right frontal were likely seizures. Recommend a repeat MRI of the brain as an outpatient within 6 weeks. I.D. is on board. Continue Ativan 1 mg every 2 hours as needed for seizures Seizure precautions seizure pads Per [facility] because of seizure, to avoid driving for 6 months until seizure-free, avoid heights, avoid swimming unassisted or heavy missionary. Pulmonary team is consulted Defer the rest of the medical management the primary and other specialist Upon discharge recommend the patient to follow-up with a neurologist as an outpatient within 2 weeks. I discussed with the patient, her son was at bedside and her nurse. No further neurological workup. Will sign off. Please reconsult if needed. Time with Patient: Less than 30
[2024-06-19] MEDS: levETIRAcetam 500 MG TAB PO SCH (20:04)
[2024-06-20 08:04] VITALS: RESP 16
[2024-06-20 13:11] VITALS: BP 121/72; PULSE 90; TEMP 98.4
--- NOTE | 2024-06-20 15:29 | P.PN ---
Subjective Progress Note Date: 06/20/24 Principal diagnosis: Seizure disorder. This is a pleasant 63-year-old female patient with a known history of fibromyalgia, hypertension, hyperlipidemia, thyroid cancer status post thyroidectomy, Sjogren's syndrome, scleroderma, Raynaud's syndrome, former smoker, vapor. She is known to have a left upper lobe pulmonary nodule measuring 15 mm in size with mediastinal lymphadenopathy. She was here electively on 06/14/2024 for robotic assisted lung biopsy and EBUS peritracheal l ymph node biopsy. She was recovered and discharged to home. Later that same night she was having issues with restlessness, agitation and developed new onset seizures. She was brought back to the emergency room the following morning. Chest x-ray revealed scattered interstitial opacities. No evidence of pneumothorax. CT scan of the head revealed no acute bleed or mass effect. No acute trauma to the cervical spine. MRI of the brain today reveals diffuse abnormal increased uniform signal intensity involving the right frontal cortex raising the question of postictal changes versus inflammatory such as encephalitis. Ischemic changes in the right frontal cortex is not excluded. No mass effect or midline shift. Neurology had been consulted. She did have a seizure at approximately 3:30 this morning receiving Ativan. She is seen today in consultation on the selective care unit. She is currently resting fairly comfortably in bed. Seizure precautions in place. She denies any shortness of breath, cough or congestion. No hemoptysis. Maintaining O2 saturations in the upper 90s on room air. Afebrile. Hemodynamically stable. Patient was seen today on 06/17/2024, doing well, however last night she had another brief seizure episode, neurology has been notified. Remains on [facility], MRI of the brain was noted radiologist was concerned about some postictal findings noted on the MRI. There was no evidence of metastasis to the brain. And no specific abnormality. EEG is pending. Progress note dated June 18, 2024. 63-year-old female who was referred to Dr. Sumner, for robotic bronchoscopy and endobronchial ultrasound. The patient had the procedure done, on June 14 . She was readmitted to the hospital, the following day, with new onset seizure. She has a left upper lobe pulmonary nodule, and mediastinal adenopathy. Currently she is on room air. She is not receiving any IV fluids. Biopsy results are currently pending. The patient is scheduled to have a lumbar puncture today, and is being seen by neurology. White count 4.9, hemoglobin 10.6, hematocrit 33.9, platelet count normal. Sodium 138, potassium 3.7, chlorides 105, CO2 23, anion gap 10, BUN 3, creatinine 0.59. Calcium is normal. Procalcitonin level is normal. Brain MRI, shows no suspicious enhancement through the right frontal gyrus. Progress note dated June 19, 2024. 63-year-old female who had a bronchoscopy performed, by my partner, on June 14. The patient was readmitted to the hospital, the following day, with a new onset seizure. The patient has a history of a left upper lobe pulmonary nodule, and some mediastinal adenopathy. Currently, the path results are pending. She is currently on room air. She is receiving saline at 130 cc an hour. No new labs today. Labs from yesterday are reviewed. Progress note dated June 20, 2024. 63-year-old female with a history of seizure disorder, following a bronchoscopy. The patient had robotic bronchoscopy performed on June 14, along with endobronchial ultrasound of a lymph node. Sampling, came back today, showing negative results. I did talk to Dr. Soriano about this patient. The patient will retrieve her PET scan, so that I can show Dr. Soriano that he can decide whether or not he we will be able to sample this patient, and get us a diagnosis. The PET scan was positive. She has a suspicious lesion in the left upper lobe. She also has some mediastinal adenopathy, that was sampled, and was negative. No new labs today. She is resting comfortably in bed. Family members are at the bedside. Objective - Vital Signs Vital signs: Vital Signs Temp 98.4 F 06/20/24 12:00 Pulse 90 06/20/24 12:00 Resp 16 06/20/24 12:00 BP 121/72 06/20/24 12:00 Pulse Ox 94 L 06/20/24 12:00 FiO2 Intake & Output 06/19/24 06/20/24 06/20/24 18:59 06:59 18:59 Intake Total 30 1690 Output Total 500 Balance -470 1690 Weight 70.9 kg Intake: IV 30 10 Invasive Line 3 30 Invasive Line 4 10 Oral 1680 Output: Urine 500 Other: Voiding Method Bedside Commode Bedside Commode # Voids 1 1 2 - Exam No acute distress, oriented 3. HEENT examination is grossly unremarkable. Mucous membranes are moist. No oral lesions. Neck supple. Full range of motion. No adenopathy thyromegaly or neck vein distention. Cardiovascular examination reveals regular rhythm rate. S1-S2 normal. No S3 or S4. No discernible murmur noted. Lungs reveal clear breath sounds. Breath sounds are equal bilaterally. No adventitious lung sounds including wheezes rhonchi or crackles. Abdomen soft bowel sounds are heard. No masses or tenderness. Extremities are intact. No cyanosis clubbing or edema. Skin is without rash or lesion. Neurologic examination is brief but nonfocal. - Labs CBC & Chem 7: 06/18/24 07:05 06/18/24 07:05 Labs: Microbiology - Last 24 Hours (Table) 06/19/24 08:22 CSF Gram Stain - Preliminary Cerebral Spinal Fluid Assessment and Plan Assessment: New onset seizure of unclear etiology. Left upper lobe pulmonary nodule, 15 mm, with mediastinal adenopathy, status post robotically assisted biopsy of the left upper lobe pulmonary nodule, and needle aspirate paratracheal lymph node, June 14. Pathology is negative. History of fibromyalgia. History of hypertension. History of hyperlipidemia. History of Sjogren syndrome. History of scleroderma. History of Raynaud's syndrome. Thyroid cancer, status post thyroidectomy. History of previous tobacco use. History of vaping. Plan: Plan dated June 18, 2024. The patient is seen today in room 364. Thus far, pathology is currently pending. The patient is on room air. No IV fluids. MRI showed no unusual enhancement. Lumbar puncture is pending. Labs, x-rays, medications are reviewed. The patient is resting comfortably. The daughter was in the room with the patient, taking notes. We will continue to follow the patient, make recommendations along the way. The patient continues on Keppra. Plan dated June 19, 2024. The patient is seen today in room 364. Currently, she is on room air. She is receiving saline at 130 cc an hour. Labs, x-rays, medications are reviewed. The patient is doing reasonably well and she has had no further seizure activity. The patient did have a lumbar puncture, and glucose was 64. Protein was 44. There were 17 RBCs. We will continue to follow, make recommendations along the way. The pathology reports, currently still pending. No additional recommendations are made at this time. Plan dated June 20, 2024. Today I told the patient that her pathology specimens, that were done on June 14, all came back negative. The patient did have an outside PET scan, that was positive, which is why she was sent for robotic bronchoscopy and endobronchial ultrasound. I did take the time to discuss the case with Dr. Fredrick gale. He would like to see the PET scan, he and he did already reviewed the CT scan. Another option would be fine-needle aspiration, CT-guided by interventional radiology. The patient will follow-up with me in the office next week. From the pulmonary standpoint, she stable for discharge. Time with Patient: Less than 30
--- NOTE | 2024-06-20 23:04 | P.DS ---
Providers Date of admission: 06/15/24 12:49 Attending physician: Laureen Myers MD Consults: 06/15/24 12:49 Consult Physician Urgent Consulting Provider: Raymond Forrester Consult Reason/Comments: new onset seizure Do you want consulting provider notified?: Yes Consult Physician Urgent Consulting Provider: Thais Loja Consult Reason/Comments: pulmonary consult Do you want consulting provider notified?: Yes 06/17/24 13:13 Consult to Anesthesia Routine Consulting Provider: Anesthesia,Services Consult Reason/Comments: lumbar puncture r/o meningoencephalitis 06/17/24 13:14 Consult Physician Routine Consulting Provider: Marlon Jorgensen Consult Reason/Comments: fever with leukocytosis with new onset seizure and abnl mri Do you want consulting provider notified?: Yes Primary care physician: Bharathi Quach MD Hospital Course: #. Altered mental status secondary to new onset seizures; patient does not have any history of seizure disorder; MRI of the brain showing diffuse increase gyriform signal intensity involving the right frontal cortex secondary to seizure disorder. Encephalitis ruled out with noninfectious lumbar puncture #. Left upper lobe nodule; patient is status post lung biopsy on 06/14/2024. Patient was evaluated by pulmonary service. Pulmonary result is negative. Patient will follow-up with leather scraper next Monday 06/25 #. Hyperlipidemia; #. Hypertension; #. Anxiety/depression; #. Hypothyroidism; #. Coronary artery disease; #. History of thyroid cancer s/p resection, history of melanoma and squamous cell carcinoma s/p resection Hospital course: 63-year-old female, history of hypertension, hyperlipidemia, hypothyroidism, fibromyalgia, hyperlipidemia, GERD/gastritis, presenting to the emergency department with reported seizure. Patient did have lung biopsy done with Dr. Vazquez and yesterday. There was some bleeding that he reported to the . Yesterday evening patient was restless. Patient does get like that occasionally when she gets sick. History is taken from as patient is a poor historian and is restless. Today prior to arrival patient became less responsive and then had a generalized tonic-clonic seizure lasting around 3 minutes. While in the hospital patient developed another seizure next day. Patient evaluated by neurology service and she was started on Keppra 1500 mg twice daily as well as Vimpat 50 mg twice daily which patient tolerates this well. MRI of the brain: reveals diffuse abnormal increased uniform signal intensity involving the right frontal cortex raising the question of postictal changes versus inflammatory such as encephalitis. Ischemic changes in the right frontal cortex is not excluded. No mass effect or midline shift. Because of this patient was started on empiric antibiotics infectious disease team were consulted. Patient underwent lumbar puncture which was nondiagnostic for an infectious process. Antibiotics were safely discontinued. Repeat MRI of the brain: No enhancement of the right frontal gyrus. Patient did not need antibiotics upon discharge per my discussions with Dr. Jorgensen. Also patient was cleared for discharge by neurologist who signed off the case yesterday. Patient mentation is back to normal. She denies any specific symptom. No headache dizziness. No new weakness or tingling. Mobility is fine. No other new complaint. No dyspnea or coughing or chest pain. No specific GI/ symptoms Primary team also following the patient and confirms to me he has an appointment with Justin Méndez on this coming Monday 06/25 that they intend to follow-up with Patient also is eager to go home today Patient was cleared for discharge by all consultants, neurologist, ID team and leather scraper Problems and management plan were discussed with the patient and he verbalized understanding and acceptance Patient was found stable and can be discharged home in guarded prognosis however he needs follow-up as an outpatient. Patient was instructed to follow up with PCP Dr. Tabor within one week and patient agrees Patient also was instructed to follow-up with neurologist Dr. Fong in 2 weeks and patient agrees. Also patient will follow-up with Dr. Mooney as above Prescription for Keppra and Vimpat were sent to [place] [facility]. The patient Ms. Mendez called the pharmacy and confirmed she has a prescription ready for pickup. Physical exam Gen: patient is a AAOx3, no distress CVS: S1-S2, RRR, no murmur Lungs: B/L CTA, no wheezing Abdomen: soft, no distention, no tenderness, positive bowel sounds Extremity: no leg edema or induration Time spent more than 35 minutes Plan - Discharge Summary Discharge Rx Participant: Yes New Discharge Prescriptions: New Acetaminophen Tab [Tylenol] 650 mg PO Q6HR PRN tab PRN Reason: Mild Pain Or Fever > 100.5 Lacosamide [Vimpat] 50 mg PO BID 30 Days #60 tab Nicotine 14Mg/24Hr Patch [Habitrol] 1 patch TRANSDERM DAILY #7 patch levETIRAcetam [Keppra] 1,500 mg PO Q12HR #200 tab Continue Omeprazole 20 mg PO BID Cevimeline [Evoxac] 30 mg PO BID Evolocumab [Repatha Sureclick] 140 mg SQ Q14D Isosorbide Mononitrate ER [Imdur] 30 mg PO DAILY Ferrous Sulfate [Iron (65 MG Elemental)] 325 mg PO DAILY Ubidecarenone [Co Q-10] 30 mg PO DAILY Cholecalciferol (Vitamin D3) [Vitamin D3 (50 Mcg = 2000 Iu)] 50 mcg PO DAILY Calcium Citrate/Vitamin D3 [Citracal + D Maximum Caplet] 1 tab PO DAILY L.acidoph,Paracasei, B.lactis [Probiotic] 1 cap PO DAILY Lidocaine 4% Patch 2 patch TOPICAL DAILY Evolocumab [Repatha Sureclick] 140 mg pe SQ WEEKLY ALPRAZolam [Xanax] 0.25 mg PO BID PRN PRN Reason: Anxiety mycophenolate mofetiL [Cellcept] 1,000 mg PO BID Levothyroxine Sodium [Synthroid] 137 mcg PO DAILY Metoprolol Succinate [Toprol XL] 100 mg PO DAILY estradioL [Estrace] 0.5 mg PO DAILY DULoxetine HCL [Cymbalta] 60 mg PO DAILY dilTIAZem HCL [Cardizem LA] 180 mg PO DAILY traMADol HCL 50 mg PO TID PRN PRN Reason: Pain Vitamin B Complex 1 cap PO DAILY Triamcinolone 0.025% Cream [Kenalog 0.025% Cream] 1 applic TOPICAL BID PRN PRN Reason: Rash Discontinued Doxycycline [Vibramycin] 50 mg PO BID metroNIDAZOLE [metroNIDAZOLE Lotion] 1 applic TOPICAL BID No Action Gabapentin 600 mg PO TID Discharge Medication List Cevimeline [Evoxac] 30 mg PO BID 05/25/23 [History] DULoxetine HCL [Cymbalta] 60 mg PO DAILY 05/25/23 [History] Gabapentin 600 mg PO TID 05/25/23 [History] Levothyroxine Sodium [Synthroid] 137 mcg PO DAILY 05/25/23 [History] Metoprolol Succinate [Toprol XL] 100 mg PO DAILY 05/25/23 [History] Omeprazole 20 mg PO BID 05/25/23 [History] estradioL [Estrace] 0.5 mg PO DAILY 05/25/23 [History] mycophenolate mofetiL [Cellcept] 1,000 mg PO BID 05/25/23 [History] Evolocumab [Repatha Sureclick] 140 mg SQ Q14D 06/06/24 [History] Isosorbide Mononitrate ER [Imdur] 30 mg PO DAILY 06/06/24 [History] dilTIAZem HCL [Cardizem LA] 180 mg PO DAILY 06/06/24 [History] Ferrous Sulfate [Iron (65 MG Elemental)] 325 mg PO DAILY 06/08/24 [History] traMADol HCL 50 mg PO TID PRN 06/08/24 [History] ALPRAZolam [Xanax] 0.25 mg PO BID PRN 06/15/24 [History] Calcium Citrate/Vitamin D3 [Citracal + D Maximum Caplet] 1 tab PO DAILY 06/15/24 [History] Cholecalciferol (Vitamin D3) [Vitamin D3 (50 Mcg = 2000 Iu)] 50 mcg PO DAILY 06/15/24 [History] Evolocumab [Repatha Sureclick] 140 mg pe SQ WEEKLY 06/15/24 [History] L.acidoph,Paracasei, B.lactis [Probiotic] 1 cap PO DAILY 06/15/24 [History] Lidocaine 4% Patch 2 patch TOPICAL DAILY 06/15/24 [History] Triamcinolone 0.025% Cream [Kenalog 0.025% Cream] 1 applic TOPICAL BID PRN 06/15/24 [History] Ubidecarenone [Co Q-10] 30 mg PO DAILY 06/15/24 [History] Vitamin B Complex 1 cap PO DAILY 06/15/24 [History] Acetaminophen Tab [Tylenol] 650 mg PO Q6HR PRN tab 06/20/24 [Rx] Lacosamide [Vimpat] 50 mg PO BID 30 Days #60 tab 06/20/24 [Rx] Nicotine 14Mg/24Hr Patch [Habitrol] 1 patch TRANSDERM DAILY #7 patch 06/20/24 [Rx] levETIRAcetam [Keppra] 1,500 mg PO Q12HR #200 tab 06/20/24 [Rx] Follow up Appointment(s)/Referral(s): Bharathi Quach MD [Primary Care Provider] - 1-2 days Justin Forrester DO [Doctor of Osteopathic Medicine] - 1 Week Sanya William MD [Medical Doctor] - 1 Week Patient Instructions/Handouts: Seizure/Epilepsy Discharge Instructions & Follow-Up Discharge Disposition: HOME SELF-CARE
--- NOTE | 2024-06-21 14:25 | P.PN ---
Subjective Progress Note Date: 06/20/24 Principal diagnosis: Reason for follow-up is fever abnormal MRI Patient is a 63-year-old female with a past medical history significant for hypertension hyperlipidemia osteomyelitis reflux fibromyalgia Sjogren's syndrome with a recent lung nodule biopsy subsequent admission to hospital with mental status changes and creation did have low-grade fever abnormal MRI prompting this consultation. On today's evaluation that is 06/20/2024,the patient denies any fever or any chills, patient is breathing comfortably on room air, the patient denies chest pain shortness of breath and no significant cough, patient denies abdominal pain, no nausea vomiting or diarrhea. Patient mention feeling better wants to go home. No new lab has been obtained today CSF viral PCR came back negative blood culture negative Objective - Vital Signs Vital signs: Vital Signs Temp 98 F 06/20/24 08:00 Pulse 88 06/20/24 08:00 Resp 16 06/20/24 08:00 BP 146/83 06/20/24 08:00 Pulse Ox 99 06/20/24 08:00 FiO2 Intake & Output 06/19/24 06/20/24 06/20/24 18:59 06:59 18:59 Intake Total 30 490 Output Total 500 Balance -470 490 Weight 70.9 kg Intake: IV 30 10 Invasive Line 3 30 Invasive Line 4 10 Oral 480 Output: Urine 500 Other: Voiding Method Bedside Commode Bedside Commode # Voids 1 1 - Exam GENERAL DESCRIPTION: Middle-age female lying in bed in no distress RESPIRATORY SYSTEM: Unlabored breathing , decreased breath sounds at bases HEART: S1 S2 regular rate and rhythm , ABDOMEN: Soft , no tenderness EXTREMITIES: No edema feet - Labs CBC & Chem 7: 06/18/24 07:05 06/18/24 07:05 Labs: Abnormal Lab Results - Last 24 Hours (Table) 06/19/24 Range/Units 08:22 CSF RBC 17 H (0-10) u/L Microbiology - Last 24 Hours (Table) 06/19/24 08:22 CSF Gram Stain - Preliminary Cerebral Spinal Fluid Assessment and Plan (1) Fever Status: Acute Code(s): R50.9 - FEVER, UNSPECIFIED SNOMED Code(s): 092505104 (2) Leukocytosis Status: Acute Code(s): D72.829 - ELEVATED WHITE BLOOD CELL COUNT, UNSPECIFIED SNOMED Code(s): 836475640 (3) Abnormal MRI of head Status: Acute Code(s): R93.0 - ABNORMAL FINDINGS ON DX IMAGING OF SKULL AND HEAD, NEC SNOMED Code(s): 495348822877133 Plan: 1patient presented to hospital with a seizure activity in this patient who did have a bronchoscopy biopsy for a nodule and mediastinal lymphadenopathy the day before patient was noticed to be restless and did have some mental status changes subsequently did have a fever and mild elevated white count has normalized now with abnormal MRI with a question of possible CVA encephalitis not entirely excluded, however the patient has recovered completely rather quickly without getting any specific treatment for encephalitis we will make encephalitis to be less likely 2-patient did have lumbar puncture completed morning of 06/19/2024 did have normal glucose protein white count normal not suggestive of encephalitis, the patient CSF viral PCR also negative 3-patient Rocephin was discontinued yesterday seem to be doing well off antibiotic hence recommending no antibiotic on discharge Dictation was produced using [employer] dictation software. please excuse any grammatical, word or spelling errors. Time with Patient: Less than 30
== END 2024-06-20 18:06 | disposition home or self-care (01) | DRG 101 ==
LOC: EC 09:46 → 3SCARD 12:49
PROVIDERS: ADMIT Internal Medicine; ATTEND Internal Medicine
PROC: 009U3ZX Drainage of Spinal Canal, Percutaneous Approach, Diagnostic (ICD-10-PCS; principal; 2024-06-19)
DX: G40.909 Epilepsy, unspecified, not intractable, without status epilepticus (principal); G81.94 Hemiplegia, unspecified affecting left nondominant side; G83.84 Todd's paralysis (postepileptic); E78.5 Hyperlipidemia, unspecified; E89.0 Postprocedural hypothyroidism; F32.A Depression, unspecified; F41.9 Anxiety disorder, unspecified; I10 Essential (primary) hypertension; I25.10 Atherosclerotic heart disease of native coronary artery without angina pectoris; I73.00 Raynaud's syndrome without gangrene; M34.9 Systemic sclerosis, unspecified; K21.9 Gastro-esophageal reflux disease without esophagitis; M35.00 Sjogren syndrome, unspecified; M79.7 Fibromyalgia; L30.9 Dermatitis, unspecified; M19.90 Unspecified osteoarthritis, unspecified site; R91.1 Solitary pulmonary nodule; R45.1 Restlessness and agitation; R59.0 Localized enlarged lymph nodes; K29.70 Gastritis, unspecified, without bleeding; Z28.21 Immunization not carried out because of patient refusal; Z20.822 Contact with and (suspected) exposure to COVID-19; Z88.1 Allergy status to other antibiotic agents; Z88.0 Allergy status to penicillin; Z79.624 Long term (current) use of inhibitors of nucleotide synthesis; Z79.82 Long term (current) use of aspirin; Z79.890 Hormone replacement therapy; Z79.899 Other long term (current) drug therapy; Z85.820 Personal history of malignant melanoma of skin; Z85.850 Personal history of malignant neoplasm of thyroid; Z87.891 Personal history of nicotine dependence; Z90.49 Acquired absence of other specified parts of digestive tract; Z90.710 Acquired absence of both cervix and uterus; Z90.722 Acquired absence of ovaries, bilateral
CPT/HCPCS: 36415; 51702; 62270; 70450; 70551; 70552; 71045; 72125; 80048; 80053; 81001; 82375; 82945; 83605; 83735; 83873; 84132; 84145; 84157; 85025; 85610; 85730; 86140; 87040; 87070; 87205; 87636; 88108; 89050; 93005; 95816; 96365; 96366; 96368; 96375; 96376; 99291

== ENCOUNTER → 2024-07-12 | Outpatient (CLI) | payer BC ==
[2024-07-12 13:10] LABS: Partial Thromboplastin Time 22.7 sec (22.0-30.0)
[2024-07-12 15:27] LABS: INR 0.9 (<1.2); Prothrombin Time 10.4 sec (10.0-12.5)
[2024-07-12 16:01] LABS: Basophils # (A) 0.08 X 10*3/uL (0.00-0.10); Basophils % (A) 1.3 %; Eosinophils # (A) 0.16 X 10*3/uL (0.04-0.35); Eosinophils % (A) 2.6 %; HCT 39.3 % (37.2-46.3); HGB 12.2 g/dL (12.0-15.0); Lymphocytes # (A) 1.86 X 10*3/uL (0.90-5.00); Lymphocytes % (A) 30.2 %; MCV 83.6 FL (80.0-97.0); Mean Platelet Volume 10.7 FL (9.5-12.2); Monocytes # (A) 0.56 X 10*3/uL (0.20-1.00); Monocytes % (A) 9.1 %; NRBC Per 100 WBC 0 X 10*3/uL (0.00-0.01); Neutrophils # (A) 3.49 X 10*3/uL (1.80-7.70); Neutrophils % (A) 56.6 %; Platelet Count 370 X 10*3/uL (140-440); WBC 6.16 X 10*3/uL (4.50-10.00)
[2024-07-12 16:02] LABS: Appearance,Urine Clear (Clear); Bilirubin,Urine Negative (Negative); Blood,Urine Negative (Negative); Color,Urine Yellow (Yellow); Ketones,Urine Negative (Negative); Nitrite,Urine Negative (Negative); Specific Gravity,Urine 1.005 (1.001-1.030); Urobilinogen,Urine 0.2 E.U./DL
[2024-07-12 16:08] LABS: Bacteria,Urine None Seen (None Seen)
[2024-07-12 16:21] LABS: Blood Urea Nitrogen 10.6 mg/dL (9.0-27.0); Carbon Dioxide 26.5 mmol/L (21.6-31.8); Chloride 100 mmol/L (96-109); Glucose 81 mg/dL (70-110); Potassium 4.2 mmol/L (3.5-5.5); Sodium 139 mmol/L (135-145)
== END | disposition home or self-care (01) ==
LOC: LABPAT 12:07
PROVIDERS: ATTEND Thoracic Surgery (Cardiothoracic Vascular Surgery)
DX: Z01.818 Encounter for other preprocedural examination (principal); C34.12 Malignant neoplasm of upper lobe, left bronchus or lung; I45.10 Unspecified right bundle-branch block; R94.31 Abnormal electrocardiogram [ECG] [EKG]; R58 Hemorrhage, not elsewhere classified
CPT/HCPCS: 80051; 81001; 82565; 82947; 84520; 85025; 85610; 85730; 86850; 86900; 86901; 93005

== ENCOUNTER 2024-07-19 10:10 | Observation (INO) | payer BC ==
[2024-07-13 15:06] VITALS: BMI 29.6
[~2024-07-19 10:10] MED LIST changes: -LACTATED RINGERS 1,000 ML IV SCH; +LIDOCAINE 1% (10MG/ML) FOR IV START INTRADERMA PRN; +droPERidol 5 MG/2 ML VIAL IVP PRN
[2024-07-19] MEDS: MIDAZOLAM 2 MG/2 ML VIAL IV ONE (10:50)
[2024-07-19] MEDS: ONDANSETRON 4 MG/2 ML VIAL IVP ONE (10:50)
[2024-07-19] MEDS: LACTATED RINGERS 1,000 ML IV SCH (10:53)
[2024-07-19] MEDS: DEXAMETHASONE SOD PHOSPHATE 4 MG/ML 1 ML VIAL IV ONE (10:54)
[2024-07-19] MEDS: IV FLUID CONTINUATION 1,000 ML IV ONE ×2 (10:58→12:45)
[2024-07-19] MEDS ORDERED: diphenhydrAMINE 50 MG/ML 1 ML VIAL ONE (11:20)
[2024-07-19] MEDS ORDERED: LABETALOL 5 MG/ML VIAL MDV ONE (11:20)
[2024-07-19] MEDS ORDERED: LIDOCAINE 1% INJ 10MG/ML (20 ML MDV) ONE (11:20)
[2024-07-19] MEDS ORDERED: PROPOFOL 10 MG/ML 20 ML VIAL IV ONE (11:20)
[2024-07-19] MEDS ORDERED: SUCCINYLCHOLINE CHLORIDE 200 MG/10 ML VIAL IV ONE (11:20)
[2024-07-19] MEDS ORDERED: fentaNYL (PF) 50 MCG/ML 2 ML AMP ONE (11:20)
[2024-07-19] MEDS ORDERED: GLYCOPYRROLATE 0.2 MG/ML 2 ML VIAL ONE (11:20)
[2024-07-19] MEDS ORDERED: HYDROmorphone (PF) 1 MG/ML ONE (11:20)
[2024-07-19] MEDS ORDERED: NEOSTIGMINE 1 MG/ML 10 ML VIAL ONE (11:20)
[2024-07-19] MEDS ORDERED: ROCURONIUM 10 MG/ML (5 ML VIAL) IV ONE (11:20)
[2024-07-19] MEDS ORDERED: PHENYLEPHRINE 10 MG/ML VIAL ONE (11:20)
[2024-07-19] MEDS ORDERED: MIDAZOLAM 2 MG/2 ML VIAL ONE (11:20)
[2024-07-19] MEDS: BUPIVACAINE (PF) 0.5% 30 ML VIAL SQ ONE ×2 (12:01)
[2024-07-19] MEDS: HYDROmorphone 0.5 MG/0.5 ML SYRINGE IVP PRN (13:04)
--- NOTE | 2024-07-19 13:19 | P.OP ---
Date of Procedure: 07/19/24 Preoperative Diagnosis: Left hilar and mediastinal adenopathy Postoperative Diagnosis: Same, granulomatous disease Procedure(s) Performed: Robotic assisted thoracoscopic left mediastinal lymph node biopsy Anesthesia: MARIKAA Surgeon: Rivera Soriano Inner Tube Tuber Machine Operator #1: Vik Montesinos Estimated Blood Loss (ml): 5 IV fluids (ml): 500 Urine output (ml): 200 Pathology: none sent Condition: stable Disposition: PACU Indications for Procedure: 63-year-old female with Sjogren's disease presents with mediastinal and hilar adenopathy on the left. PET scan shows significant uptake. Attempted biopsy by bronchoscopy and EBUS were unsuccessful at obtaining a diagnosis. Patient was referred for mediastinal lymph node biopsy for diagnosis. Operative Findings: Enlarged lymph nodes were noted in the L5 region. Description of Procedure: Patient was brought to the operating room and placed supine on the operating table. General anesthesia was induced and she was intubated with a double-lumen endotracheal tube. This was positioned with fiberoptic bronchoscopy. No endobronchial lesions were noted. Tube was secured and the patient was turned in the right lateral decubitus position and appropriately positioned for thoracoscopic lymph node biopsy. The left chest was sterilely prepped and draped. Incision first incision was made in the eighth interspace in the anterior axillary line and an 8 mm port was placed here after instituting single lung ventilation. After confirming placement in the pleural space, CO2 insufflation was begun. 2 further 8 mm ports were placed just anterior and posterior to the initial port. Working port was placed anteriorly at the level of the diaphragm. The robot was docked. The left upper lobe was retracted posteriorly and lymph node mass was identified at the L5 AP window region. Bipolar dissection was used to resect the majority of matted lymph nodes in this area. Some were still adherent to the superior aspect of the pulmonary artery and were left in place. Lymph nodes were placed in a plastic bag and brought out onto the field. They were divided on the back table and a portion sent for frozen section which returned positive for granulomatous inflammation. 28 Sinhala chest tube was placed through separate stab incision and positioned posterior apically. The lung was reinflated under thoracoscopic visualization. The instruments were removed and the robot moved off the field. The incisions were closed with layers of Vicryl suture. Skin glue and dry sterile dressings were applied. Chest tube was secured with 0 Ethibond suture in a standard dressing applied. It was connected to a Pleur-evac. Patient was turned supine and extubated and transferred to recovery in stable condition.
--- NOTE | 2024-07-19 13:46 | XR ---
EXAMINATION TYPE: XR chest 1V portable DATE OF EXAM: 07/19/2024 1:30 PM COMPARISON: 06/15/2024 CLINICAL INDICATION: Female, 63 years old with history of post lung biopsy, , FINDINGS: Left-sided chest tube in place. No appreciable pneumothorax. Heart mildly enlarged with diffuse inter stitial opacity. IMPRESSION: 1. Left chest tube in place. No appreciable pneumothorax. 2. Similar cardiomegaly and diffuse interstitial density, possible CHF with pulmonary vascular conges tion. Clinically correlate. [facility], , 07/19/2024 1:43 PM
[2024-07-19] MEDS ORDERED: ONDANSETRON 4 MG/2 ML VIAL IVP PRN (16:04)
[2024-07-19] MEDS ORDERED: bisacodyL 10 MG SUPP RECTAL PRN (16:04)
[2024-07-19] MEDS ORDERED: IPRATROPIUM-ALBUTEROL 3 ML NEB IH PRN (16:04)
[2024-07-19] MEDS: IPRATROPIUM-ALBUTEROL 3 ML NEB IH SCH (16:18)
[2024-07-19] MEDS: HEPARIN SODIUM,PORCINE 5,000 UNIT/ML 1 ML VIAL SQ SCH (17:04)
[2024-07-19] MEDS: KETOROLAC 15 MG/ML 1 ML VIAL IVP SCH (17:04)
[2024-07-19] MEDS: DEXTROSE 5%-0.45% NACL 1,000 ML IV SCH (17:04)
[2024-07-19] MEDS: ACETAMINOPHEN TAB 325 MG TAB PO PRN (18:25)
--- NOTE | 2024-07-19 18:37 | P.CNPUL ---
History of Present Illness Consult date: 07/19/24 History of present illness: This is a 63-year-old female patient with history of scleroderma and chronic interstitial lung disease. The patient was undergoing a calcium scoring of the heart and the patient was found to have a left upper lobe pulmonary nodule and left-sided lymphadenopathy. A PET scan was also done that showed confirmed increased metabolic activity in the left upper lobe nodule and the left hilar and mediastinal lymph nodes. Based on that, I performed a robotic Ion bronchoscopy and endobronchial ultrasound and the results were essentially nondiagnostic. Based on that, recommended a surgical biopsy. The patient was taken to the operating room today and the patient underwent a robotic assisted thoracoscopic left mediastinal lymph node biopsy. The preliminary findings are consistent with benign granulomatous changes. Final pathology is pending. Patient was found to have enlarged station L5 lymph nodes that were biopsied. Final pathology still pending. At this point in time, the patient is on room air oxygen with a pulse ox of 96%. She is resting comfortably in bed. Hemodynamically stable. Denies having any other significant complaints. Comorbidities include scleroderma, Sjogren's disease, Raynaud's syndrome, hypertension hyperlipidemia and previous history of thyroid cancer for which the patient undergone a thyroidectomy. She also has fibromyalgia. Her CAT scan of the chest also shows scattered interstitial changes consistent with ILD.Chest x- ray shows a left-sided chest tube in place. Cardiomegaly with some increased interstitial densities bilaterally consistent with ILD. No evidence of any pneumothorax. Review of Systems CONSTITUTIONAL: Denies any recent significant weight loss or weight gain. EYES: Denies change in vision. EARS, NOSE, MOUTH, THROAT: Denies headaches, denies sore throat. CARDIOVASCULAR: Denies chest pain, palpitations or syncopal episodes. RESPIRATORY: Denies shortness of breath, cough, congestion or hemoptysis. GASTROINTESTINAL: Denies change in appetite, denies abdominal pain GENITOURINARY: Denies hematuria, denies infections. MUSKULOSKELETAL: Denies pain, denies swelling. INTEGUMENTARY: Denies rash, denies eczema. NEUROLOGICAL: Positive for seizure activity. PSYCHIATRIC: Denies anxiety, denies depression. HEMATOLOGIC/LYMPHATIC: Denies anemia, denies enlarged lymph nodes. Past Medical History Past Medical History: Cancer, Fibromyalgia, GERD/Reflux, Hyperlipidemia, Hypertension, Osteoarthritis (OA), Seizure Disorder, Thyroid Disorder Additional Past Medical History / Comment(s): pt had bronchosocpy on 06-14-24 then grand mal seizure on 06-15-24 and 2 seizures on 06-16-24- unknown cause and no prior seizures,also has occas left foot drag and weakness at times since seizure activity, anemia,Sjogrens syndrome Scleroderma, raynauds syndrome, diverticulitis,enlarged lymph node on front of trachea and spot on left upper lobe.SOB with exertion-no oxygen. issues with swallowing at time-needs to have liquids with solid food. thyroid cancer and melanoma.squamous cell ( all removed). dermatitis on neck,pulmonary fibrosis,scoliosis,chronic pain,IBS History of Any Multi-Drug Resistant Organisms: None Reported Past Surgical History: Bowel Resection, Cholecystectomy, Hysterectomy, Tonsillectomy, Tubal Ligation Additional Past Surgical History / Comment(s): December 2022- sacrocolpopexy and retro pubic sling, urethral sling. Bowel resection, Thyroidectomy, melanoma surgical excision, squamous cell. detached retina surgery. lt breast bx, detached retina repair-not sure what eye, [place] and bilat oophorectomy,bronchoscopy on 06-14-24 Past Anesthesia/Blood Transfusion Reactions: No Reported Reaction Additional Past Anesthesia/Blood Transfusion Reaction / Comment(s): no hx blood transfusion Past Psychological History: Anxiety Smoking Status: Former smoker, Vaper Past Alcohol Use History: None Reported Additional Past Alcohol Use History / Comment(s): quit smoking 2004. started vaping 2019 daily trying to quit. quit vaping Jun.1 cartridge a week Past Drug Use History: Marijuana Additional Drug Use History / Comment(s): marie cochran pt aware not to use 24 hrs before procedure. No longer using marijuana since 06-12-24 - Past Family History Father Family Medical History: Cancer Additional Family Medical History / Comment(s): colon cancer,prostate - Mother Family Medical History: Cancer Additional Family Medical History / Comment(s): colon cancer- Sister(s) Family Medical History: Cancer Additional Family Medical History / Comment(s): lung cancer - . another sister aortic aneurysm Brother(s) Family Medical History: AFIB, AICD/Pacemaker Medications and Allergies Home Medications Medication Instructions Recorded Confirmed Type Cevimeline [Evoxac] 30 mg PO BID 05/25/23 07/19/24 History DULoxetine HCL [Cymbalta] 60 mg PO QAM 05/25/23 07/19/24 History Gabapentin 600 mg PO BID 05/25/23 07/19/24 History Levothyroxine Sodium [Synthroid] 137 mcg PO QAM 05/25/23 07/19/24 History Metoprolol Succinate [Toprol XL] 100 mg PO QAM 05/25/23 07/19/24 History Omeprazole 20 mg PO BID 05/25/23 07/19/24 History estradioL [Estrace] 0.5 mg PO DAILY 05/25/23 07/19/24 History mycophenolate mofetiL [Cellcept] 1,000 mg PO BID 05/25/23 07/19/24 History Isosorbide Mononitrate ER [Imdur] 30 mg PO QAM 06/06/24 07/19/24 History dilTIAZem HCL [Cardizem LA] 180 mg PO DAILY 06/06/24 07/19/24 History Calcium Citrate/Vitamin D3 1 tab PO DAILY 06/15/24 07/19/24 History [Citracal + D Maximum Caplet] Cholecalciferol (Vitamin D3) 50 mcg PO DAILY 06/15/24 07/19/24 History [Vitamin D3 (50 Mcg = 2000 Iu)] Ubidecarenone [Co Q-10] 200 mg PO DAILY 06/15/24 07/19/24 History Acetaminophen Tab [Tylenol] 650 mg PO Q6HR PRN tab 06/20/24 07/19/24 Rx Lacosamide [Vimpat] 50 mg PO BID 30 Days #60 tab 06/20/24 07/19/24 Rx levETIRAcetam [Keppra] 1,500 mg PO Q12HR #200 tab 06/20/24 07/19/24 Rx Aspirin 81 mg PO DAILY 07/13/24 07/19/24 History Multivitamins, Thera [Multivitamin 1 tab PO DAILY 07/13/24 07/19/24 History (formulary)] Allergies Allergy/AdvReac Type Severity Reaction Status Date / Time amoxicillin Allergy Rash/Hives Verified 07/19/24 10:14 clavulanic acid Allergy Rash/Hives Verified 07/19/24 10:14 [From Augmentin] clindamycin Allergy Rash/Hives Verified 07/19/24 10:14 minocycline Allergy Rash/Hives Verified 07/19/24 10:14 Physical Exam Vitals: Vital Signs Temp Pulse Pulse Resp BP BP Pulse Ox 07/19/24 16:28 98.0 F 79 14 113/71 96 07/19/24 16:00 82 16 98/60 92 L 07/19/24 15:30 76 17 104/58 95 07/19/24 15:00 81 17 116/70 93 L 07/19/24 14:30 79 20 118/64 100 07/19/24 14:00 78 16 117/68 97 07/19/24 13:45 82 14 102/64 91 L 07/19/24 13:30 78 126/73 150/63 96 07/19/24 13:15 77 13 126/73 157/64 100 07/19/24 13:00 77 15 146/71 148/63 100 07/19/24 12:45 96.9 F L 85 14 146/71 148/64 98 07/19/24 11:01 76 18 116/80 99 07/19/24 10:36 97.9 F 87 18 148/81 99 Intake and Output 07/19/24 07/19/24 07/19/24 06:59 14:59 22:59 Intake Total 1250 Output Total 80 Balance 1170 Intake: IV 1250 Output: Urine 75 Estimated Blood Loss 5 Other: # Voids 1 Weight 71.1 kg The patient appeared well nourished and normally developed. Vital signs as documented. Head exam is unremarkable. No scleral icterus or corneal arcus noted. Neck is without jugular venous distension, thyromegaly, or carotid bruits. Carotid upstrokes are brisk bilaterally. Lungs Limited crackles in lung bases, left sided chest tube removed Cardiac exam reveals the PMI to be normally sized and situated. Rhythm is regular. First and second heart sounds normal. No murmurs, rubs or gallops. Abdominal exam reveals normal bowel sounds, no masses, no organomegaly and no aortic enlargement. Extremities are nonedematous and both femoral and pedal pulses are normal. Examination of the skin revealed no evidence of significant rashes, suspicious appearing nevi or other concerning lesions. Neurologically, the patient is awake and alert and the patient does not have any focal neurological deficit. Cranial nerves are essentially intact. Results - Diagnostic Findings Chest x-ray: image reviewed Assessment and Plan Plan: . Left upper lobe pulmonary nodule measuring 15 mm with mediastinal lymphadenopathy. Status post robotic assisted biopsy of the left upper lobe nodule and needle aspirate of a paratracheal lymph node on 06/14/2024. Pathology was was nondiagnostic for malignancy. Based on that, the patient underwent a robotic thoracoscopic biopsy of the station L5 lymph node. Primary findings are also benign. Patient is currently postop day #0. Left-sided chest tube in place. No evidence of any pneumothorax. Hemodynamically stable. Chronic ILD related to connective tissue disease/scleroderma/Sjogren's disease Fibromyalgia Hypertension Hyperlipidemia Sjogren's syndrome Scleroderma Raynaud's syndrome Thyroid cancer status post thyroidectomy Former smoker Vaping Seizures, currently inactive and stable Plan Continue using incentive spirometer Titrate oxygen flow to maintain saturation above 90%, the patient has been weaned down to room air oxygen chest tube removed Resume home medications Will continue to follow. Will be awaiting final pathology.
--- NOTE | 2024-07-19 19:21 | P.ANPRN ---
Procedure Note - Anesthesia - Invasive Line Right Arterial Line Time Out Performed: Yes Date of Procedure: 07/19/24 Time of Procedure: 11:00 Location of Patient: PreOp Preparation: Sterile Prep, Sterile Dressing Arterial Line Location: Radial Ultrasound Used: No Purpose - Visualization and Identification of Vasculature: No Image Stored and Saved: No Narrative: Invasive line placement per sterile protocol utilized.
[2024-07-19 19:29] VITALS: RESP 16
[2024-07-19] MEDS: traMADol 50 MG TAB PO PRN (22:40)
[2024-07-19] MEDS: levETIRAcetam 500 MG TAB PO SCH (22:42)
[2024-07-19] MEDS: PANTOPRAZOLE 40 MG TABLET PO SCH (22:42)
[2024-07-19] MEDS: LACOSAMIDE 50 MG TABLET PO SCH (22:42)
[2024-07-19] MEDS: GABAPENTIN 300 MG CAP PO SCH (22:42)
[2024-07-20 05:20] LABS: Basophils % (A) 0 %; Eosinophils # (A) 0.2 k/uL (0-0.7); Eosinophils % (A) 3 %; HCT 32.5 % (34.0-46.0); HGB 10.6 gm/dL (11.4-16.0); Hypochromasia Slight; Lymphocytes # (A) 1.6 k/uL (1.0-4.8); Lymphocytes % (A) 25 %; MCHC 32.8 g/dL (31.0-37.0); MCV 82.5 fL (80.0-100.0); Mean Platelet Volume 8.1; Monocytes # (A) 0.3 k/uL (0-1.0); Monocytes % (A) 5 %; Neutrophils % (A) 64 %; Platelet Count 236 k/uL (150-450); RBC 3.94 m/uL (3.80-5.40); RDW 15.5 % (11.5-15.5); WBC 6.3 k/uL (3.8-10.6)
[2024-07-20 05:35] LABS: African American GFR (CKD) >90 (>60 ml/min/1.73 sqM); Anion Gap 7 mmol/L; Blood Urea Nitrogen 11 mg/dL (7-17); Calcium 8.7 mg/dL (8.4-10.2); Carbon Dioxide 30 mmol/L (22-30); Chloride 100 mmol/L (98-107); Glucose 85 mg/dL (74-99); Non-African American GFR(CKD) >90 (>60 ml/min/1.73 sqM); Potassium 4.6 mmol/L (3.5-5.1); Sodium 137 mmol/L (137-145)
[2024-07-20] MEDS: LEVOTHYROXINE 137 MCG TAB PO SCH (06:10)
--- NOTE | 2024-07-20 08:39 | XR ---
EXAMINATION TYPE: XR chest 2V DATE OF EXAM: 07/20/2024 7:22 AM COMPARISON: 07/19/2024 CLINICAL INDICATION: Female, 63 years old with history of post lung biopsy, , TECHNIQUE: Frontal and lateral views FINDINGS: Removal of left chest tube. No sizable pneumothorax is seen. Heart upper limits of normal in size. Mi ld interstitial densities similar. Some patchy bibasilar opacities persist as well. No pleural effusi on. Some subcutaneous emphysema at the left base of the neck remains. IMPRESSION: Removal of the left chest tube. No sizable pneumothorax seen. Interstitial densities and mild patchy bibasilar opacities remain similar. [facility] Farah, Workstation: [id number], 07/20/2024 8:37 AM
[2024-07-20] MEDS: CEVIMELINE 30 MG CAP PO SCH (08:40)
[2024-07-20] MEDS: DILTIAZEM CD 180 MG CAP.ER.24H PO SCH (08:40)
[2024-07-20] MEDS: ISOSORBIDE MONONITRATE ER 30 MG TAB.ER.24H PO SCH (08:41)
[2024-07-20] MEDS: CHOLECALCIFEROL 25 MCG (1000 IU) TABLET PO SCH (08:41)
[2024-07-20] MEDS: MULTIVITAMINS, THERA 1 EACH TAB PO SCH (08:41)
[2024-07-20] MEDS: METOPROLOL SUCCINATE (ER) 100 MG TAB.ER.24H PO SCH (08:41)
[2024-07-20] MEDS: DULoxetine HCL 60 MG CAPSULE.DR PO SCH (08:41)
[2024-07-20] MEDS: CALCIUM CARB-VIT D 500 MG-5 MCG TAB PO SCH (08:41)
[2024-07-20] MEDS: ASPIRIN 81 MG PO SCH (08:41)
--- NOTE | 2024-07-20 09:32 | P.PN ---
Subjective Progress Note Date: 07/20/24 Principal diagnosis: Left hilar and mediastinal adenopathy, granulomatous disease. History of previous tobacco dependence with recent cessation of vaping in June 2024, chronic interstitial lung disease secondary to scleroderma/Sjogren's disease, Raynaud's, hypertension, hyperlipidemia, thyroid cancer status post thyroidectomy, fibromyalgia, seizure disorder POD #1 robotic assisted thoracoscopic left mediastinal lymph node biopsy The patient was seen and examined with Dr. Soriano this morning sitting up in bed on the medical oncology unit in no acute distress. Patient's was at the bedside. Apparently she did have an episode yesterday afternoon when she got to the floor of passing out when getting up to the bathroom. Vital signs remained stable, orthostatics were completed and were negative. Patient does have mobility issues at home and has used a walker for mobility. Requesting to be seen by PT/OT. Objective - Vital Signs Vital signs: Vital Signs Temp 97.6 F 07/20/24 07:44 Pulse 82 07/20/24 09:04 Resp 16 07/20/24 07:44 BP 123/76 07/20/24 07:44 Pulse Ox 96 07/20/24 08:55 FiO2 Intake & Output 07/19/24 07/20/24 07/20/24 18:59 06:59 18:59 Intake Total 1250 240 Output Total 80 Balance 1170 240 Weight 71.1 kg Intake: IV 1250 Oral 240 Output: Urine 75 Estimated Blood Loss 5 Other: Voiding Method Bedside Commode # Voids 1 4 - Exam CONSTITUTIONAL: Appears comfortable, cooperative, no acute distress RESPIRATORY: Lungs sounds diminished bilaterally. Respirations even, nonlabored. Currently on room air with oxygen saturation 97% CARDIOVASCULAR: S1, S2 present. Regular rate and rhythm. Palpable peripheral pulses bilaterally. No edema present GASTROINTESTINAL: Abdomen soft, nontender, nondistended. Active bowel sounds present 4 quadrants. Tolerating diet GENITOURINARY: Continues to void INTEGUMENTARY: Skin is warm and dry. Thoracic incision well approximated and covered with intact dressing. NEUROLOGIC: Cranial nerves II through XII intact MUSKULOSKELETAL: Able to move all extremities, strength equal bilaterally PSYCHIATRIC: Alert and oriented to person place and time, appropriate affect, intact judgment and insight - Allied health notes Allied health notes reviewed: nursing - Labs CBC & Chem 7: 07/20/24 04:45 07/20/24 04:45 Labs: Abnormal Lab Results - Last 24 Hours (Table) 07/20/24 Range/Units 04:45 Hgb 10.6 L (11.4-16.0) gm/dL Hct 32.5 L (34.0-46.0) % Microbiology - Last 24 Hours (Table) 07/19/24 12:25 Gram Stain - Preliminary Lymph Node - Imaging and Cardiology Chest x-ray: report reviewed, image reviewed Assessment and Plan Assessment: Left hilar and mediastinal adenopathy, granulomatous disease, status post robotic assisted thoracoscopic left mediastinal lymph node biopsy History of previous tobacco dependence with recent cessation of vaping in Jun Chronic interstitial lung disease secondary to scleroderma/Sjogren's disease Raynaud's Hypertension Hyperlipidemia Thyroid cancer status post thyroidectomy Fibromyalgia Seizure disorder Plan: Continue current medication therapy Increase activity, patient may use walker, PT/OT consulted per patient request Chest x-ray, labs reviewed Encourage incentive spirometry use Left-sided chest tube dressing to remain in place until tomorrow, then patient may remove and shower daily Discharge planning in progress, anticipate discharge to home later today
[2024-07-20 11:55] VITALS: BP 100/65; PULSE 78; TEMP 97.8
--- NOTE | 2024-07-20 14:22 | P.DS ---
Providers Date of admission: 07/20/24 11:47 Expected date of discharge: 07/20/24 Attending physician: Rivera Soriano Primary care physician: Bharathi Quach MD Hospital Course: FINAL DIAGNOSIS: Left hilar and mediastinal adenopathy, granulomatous disease History of previous tobacco dependence with recent cessation of vaping in June 2024 Chronic interstitial lung disease secondary to scleroderma/Sjogren's disease Raynaud's Hypertension Hyperlipidemia Thyroid cancer status post thyroidectomy Fibromyalgia Seizure disorder PRINCIPAL PROCEDURE: Robotic assisted thoracoscopic left mediastinal lymph node biopsy HISTORY OF PRESENT ILLNESS: This is a 63-year-old female who follows outpatient with Dr. Quach for primary care and Dr. Sumner for pulmonology. She has a history of scleroderma and hyperlipidemia but was intolerant to goal-directed medical therapy due to back pain. She wanted to be switched to Repatha, in order to do so was recommended to have a calcium screening of her heart which was performed in March revealing left upper lobe mass as well as some left- sided adenopathy. Subsequently she underwent a PET scan confirming uptake in both the left upper lobe mass and the left hilum as well as mediastinal lymph nodes on the left side. Following this she underwent bronchoscopy with attempted biopsy of the lung mass robotically, unfortunately the bronchoscopy was nondiagnostic. The lymph nodes in both the hilum and the mediastinum were not in the vicinity of the airway and therefore could not be biopsied. Upon discharge she had a seizure at home and was readmitted and spent about a week in the hospital. During that admission she had a CT of the head as well as 2 MRIs all of which were negative for metastatic disease, etiology of seizure was never clearly demonstrated. The patient was referred to Dr. Soriano from cardiothoracic surgery. She was recommended to undergo surgical lung biopsy. The usual perioperative course was discussed in detail with the patient and her family, all risks and benefits were explained, all questions were answered, and consent was obtained to proceed with surgery. The patient was scheduled for surgery at the earliest possible date. HOSPITAL COURSE: The patient was brought to the hospital on 07/19/24, taken to the preoperative area, prepared in the usual fashion, and subsequently taken to the operating room where Dr. Soriano performed robotic assisted thoracoscopic left mediastinal lymph node biopsy. Upon completion of surgery the patient was extubated and taken to the recovery room for further monitoring. X-ray was stable, there was no airleak in her chest tube and it was discontinued in the recovery room. She was transferred to the medical oncology unit for overnight monitoring. Repeat chest x-ray the following morning was stable. Her oxygen was titrated down, she continued to work with physical and occupational therapy, she was tolerating oral diet, her pain was controlled, and she was ready to be discharged to home on postoperative day #. She received written and verbal instruction regarding her medications, activity restrictions, signs and symptoms requiring physician notification, and follow-up appointments. Patient Condition at Discharge: Stable Plan - Discharge Summary Discharge Rx Participant: No New Discharge Prescriptions: Continue Omeprazole 20 mg PO BID Cevimeline [Evoxac] 30 mg PO BID Gabapentin 600 mg PO BID Isosorbide Mononitrate ER [Imdur] 30 mg PO QAM Ubidecarenone [Co Q-10] 200 mg PO DAILY Cholecalciferol (Vitamin D3) [Vitamin D3 (50 Mcg = 2000 Iu)] 50 mcg PO DAILY Calcium Citrate/Vitamin D3 [Citracal + D Maximum Caplet] 1 tab PO DAILY Acetaminophen Tab [Tylenol] 650 mg PO Q6HR PRN tab PRN Reason: Mild Pain Or Fever > 100.5 Lacosamide [Vimpat] 50 mg PO BID 30 Days #60 tab Aspirin 81 mg PO DAILY mycophenolate mofetiL [Cellcept] 1,000 mg PO BID Levothyroxine Sodium [Synthroid] 137 mcg PO QAM Metoprolol Succinate [Toprol XL] 100 mg PO QAM estradioL [Estrace] 0.5 mg PO DAILY DULoxetine HCL [Cymbalta] 60 mg PO QAM dilTIAZem HCL [Cardizem LA] 180 mg PO DAILY levETIRAcetam [Keppra] 1,500 mg PO Q12HR #200 tab Multivitamins, Thera [Multivitamin (formulary)] 1 tab PO DAILY Discharge Medication List Cevimeline [Evoxac] 30 mg PO BID 05/25/23 [History] DULoxetine HCL [Cymbalta] 60 mg PO QAM 05/25/23 [History] Gabapentin 600 mg PO BID 05/25/23 [History] Levothyroxine Sodium [Synthroid] 137 mcg PO QAM 05/25/23 [History] Metoprolol Succinate [Toprol XL] 100 mg PO QAM 05/25/23 [History] Omeprazole 20 mg PO BID 05/25/23 [History] estradioL [Estrace] 0.5 mg PO DAILY 05/25/23 [History] mycophenolate mofetiL [Cellcept] 1,000 mg PO BID 05/25/23 [History] Isosorbide Mononitrate ER [Imdur] 30 mg PO QAM 06/06/24 [History] dilTIAZem HCL [Cardizem LA] 180 mg PO DAILY 06/06/24 [History] Calcium Citrate/Vitamin D3 [Citracal + D Maximum Caplet] 1 tab PO DAILY 06/15/24 [History] Cholecalciferol (Vitamin D3) [Vitamin D3 (50 Mcg = 2000 Iu)] 50 mcg PO DAILY 06/15/24 [History] Ubidecarenone [Co Q-10] 200 mg PO DAILY 06/15/24 [History] Acetaminophen Tab [Tylenol] 650 mg PO Q6HR PRN tab 06/20/24 [Rx] Lacosamide [Vimpat] 50 mg PO BID 30 Days #60 tab 06/20/24 [Rx] levETIRAcetam [Keppra] 1,500 mg PO Q12HR #200 tab 06/20/24 [Rx] Aspirin 81 mg PO DAILY 07/13/24 [History] Multivitamins, Thera [Multivitamin (formulary)] 1 tab PO DAILY 07/13/24 [History] Follow up Appointment(s)/Referral(s): Bharathi Quach MD [Primary Care Provider] - 07/26/24 11:15 am Rivera Soriano MD [STAFF PHYSICIAN] - 08/02/24 2:00 pm Sherie Sumner MD [STAFF PHYSICIAN] - 08/03/24 2:00 pm Activity/Diet/Wound Care/Special Instructions: DISCHARGE INSTRUCTIONS: 1. No driving for 2 weeks, or until physician gives their ok. 2. No lifting, pushing, or pulling more than 10 pounds for 2 weeks. [facility] s[facility] will advise of any restriction changes. 3. Continue pain control per as needed orders. Alternate acetaminophen (Tylenol) and ibuprofen (Motrin/Advil) for pain. 4. Continue with incentive spirometry and splinting until otherwise directed by the physician. 5. Leave chest tube dressing for 48 hours (Tuesday). After that, remove all dressings and shower daily. 6. Routine incision care. No powders, lotions, ointments on incisions. 7. Please call surgeon/CABLE MAKER for temp greater than 101 F or purulent drainage from incisions. 8. NO VAPING OR SMOKING
--- NOTE | 2024-07-20 16:33 | P.PN ---
Subjective Progress Note Date: 07/20/24 On 07/20/2024, the patient is doing well. Room air oxygen. Sitting up in a chair. No specific complaints. Chest tube has been removed yesterday. The patient remains on room air oxygen with a pulse ox of 93%. Hemodynamically stable. White cell count of 6.3 with hemoglobin 10.6 and a platelet count of 236. Electrolytes are all within normal limits. Patient will likely be discharged today as the patient has no specific complaints. Surgical wound site over the left chest area is dry clean and intact. Objective - Vital Signs Vital signs: Vital Signs Temp 97.8 F 07/20/24 11:54 Pulse 78 07/20/24 11:54 Resp 16 07/20/24 11:54 BP 100/65 07/20/24 11:54 Pulse Ox 93 L 07/20/24 11:54 FiO2 Intake & Output 07/19/24 07/20/24 07/20/24 18:59 06:59 18:59 Intake Total 1250 477 Output Total 80 Balance 1170 477 Weight 71.1 kg Intake: IV 1250 Oral 477 Output: Urine 75 Estimated Blood Loss 5 Other: Voiding Method Bedside Commode # Voids 1 4 - Exam The patient appeared well nourished and normally developed. Vital signs as documented. Head exam is unremarkable. No scleral icterus or corneal arcus noted. Neck is without jugular venous distension, thyromegaly, or carotid bruits. Carotid upstrokes are brisk bilaterally. Lungs Limited crackles in lung bases, left sided chest tube removed Cardiac exam reveals the PMI to be normally sized and situated. Rhythm is regular. First and second heart sounds normal. No murmurs, rubs or gallops. Abdominal exam reveals normal bowel sounds, no masses, no organomegaly and no aortic enlargement. Extremities are nonedematous and both femoral and pedal pulses are normal. Examination of the skin revealed no evidence of significant rashes, suspicious appearing nevi or other concerning lesions. Neurologically, the patient is awake and alert and the patient does not have any focal neurological deficit. Cranial nerves are essentially intact. - Labs CBC & Chem 7: 07/20/24 04:45 07/20/24 04:45 Labs: Abnormal Lab Results - Last 24 Hours (Table) 07/20/24 Range/Units 04:45 Hgb 10.6 L (11.4-16.0) gm/dL Hct 32.5 L (34.0-46.0) % Microbiology - Last 24 Hours (Table) 07/19/24 12:25 Gram Stain - Preliminary Lymph Node Assessment and Plan Plan: . Left upper lobe pulmonary nodule measuring 15 mm with mediastinal lymphadenopathy. Status post robotic assisted biopsy of the left upper lobe n odule and needle aspirate of a paratracheal lymph node on 06/14/2024. Pathology was was nondiagnostic for malignancy. Based on that, the patient underwent a robotic thoracoscopic biopsy of the station L5 lymph node. Primary findings are also benign. Patient is currently postop day #1. Left-sided chest tube has been removed Chronic ILD related to connective tissue disease/scleroderma/Sjogren's disease Fibromyalgia Hypertension Hyperlipidemia Sjogren's syndrome Scleroderma Raynaud's syndrome Thyroid cancer status post thyroidectomy Former smoker Vaping Seizures, currently inactive and stable Plan Continue using incentive spirometer Clinically stable Titrate oxygen flow to maintain saturation above 90%, the patient has been weaned down to room air oxygen chest tube removed No new complaints Resume home medications Will continue to follow. Will be awaiting final pathology. Likely going home today. Ambulating. Follow-up on outpatient basis.
== END 2024-07-20 15:19 | disposition home or self-care (01) ==
LOC: OR 10:10 → EDSTATUS 11:55 → 5NMEDONC 12:34 → OR 07-20 11:47
PROVIDERS: ADMIT Thoracic Surgery (Cardiothoracic Vascular Surgery); ATTEND Thoracic Surgery (Cardiothoracic Vascular Surgery)
DX: I88.0 Nonspecific mesenteric lymphadenitis (principal); M35.00 Sjogren syndrome, unspecified; C34.12 Malignant neoplasm of upper lobe, left bronchus or lung; J84.89 Other specified interstitial pulmonary diseases; M34.81 Systemic sclerosis with lung involvement; I73.00 Raynaud's syndrome without gangrene; I11.9 Hypertensive heart disease without heart failure; G40.909 Epilepsy, unspecified, not intractable, without status epilepticus; E89.0 Postprocedural hypothyroidism; E78.5 Hyperlipidemia, unspecified; M79.7 Fibromyalgia; Z79.890 Hormone replacement therapy; Z79.624 Long term (current) use of inhibitors of nucleotide synthesis; Z79.899 Other long term (current) drug therapy; Z79.82 Long term (current) use of aspirin; Z88.1 Allergy status to other antibiotic agents; Z88.0 Allergy status to penicillin; Z87.891 Personal history of nicotine dependence; Z85.850 Personal history of malignant neoplasm of thyroid
CPT/HCPCS: 32606; 32674; S2900; 71045; 71046; 80048; 85025; 87070; 87075; 87102; 87116; 87205; 87206; 88305; 88312; 88331; 94640; 94760; 96372

== ENCOUNTER → 2024-09-06 | Outpatient (CLI) | payer BC | END | disposition home or self-care (01) | LOC: LABWHC1 15:40 | PROVIDERS: ATTEND Internal Medicine Infectious Disease | DX: E53.9 Vitamin B deficiency, unspecified (principal); B39.1 Chronic pulmonary histoplasmosis capsulati | CPT/HCPCS: 36415; 82607; 86698 ==

== ENCOUNTER → 2024-10-05 | Outpatient (CLI) | payer BC ==
[2024-10-06 02:00] LABS: ALT 17 U/L (8-44); AST 27 U/L (13-35); Albumin 4.1 g/dL (3.8-4.9); Albumin/Globulin Ratio 1.37 Ratio (1.60-3.17); Alkaline Phosphatase 102 U/L (41-126); BUN/Creat Ratio 15.33 Ratio (12.00-20.00); Blood Urea Nitrogen 9.2 mg/dL (9.0-27.0); Calcium 9.1 mg/dL (8.7-10.3); Carbon Dioxide 26.9 mmol/L (21.6-31.8); Chloride 101 mmol/L (96-109); Glucose 82 mg/dL (70-110); Potassium 3.8 mmol/L (3.5-5.5); Sodium 141 mmol/L (135-145); Total Bilirubin <0.2 mg/dL (0.3-1.2); Total Protein 7.1 g/dL (6.2-8.2)
== END | disposition home or self-care (01) ==
LOC: LABWHC1 15:41
PROVIDERS: ATTEND Internal Medicine Infectious Disease
DX: B39.1 Chronic pulmonary histoplasmosis capsulati (principal)
CPT/HCPCS: 36415; 80053

== ENCOUNTER → 2024-11-05 | Outpatient (CLI) | payer BC ==
[2024-11-05 18:30] LABS: Basophils # (A) 0.07 X 10*3/uL (0.00-0.10); Basophils % (A) 1.1 %; Eosinophils # (A) 0.15 X 10*3/uL (0.04-0.35); Eosinophils % (A) 2.4 %; HCT 35.1 % (37.2-46.3); HGB 10.6 g/dL (12.0-15.0); Lymphocytes # (A) 1.81 X 10*3/uL (0.90-5.00); Lymphocytes % (A) 29.1 %; MCH 25.1 pg (27.0-32.0); MCHC 30.2 g/dL (32.0-37.0); MCV 83.2 FL (80.0-97.0); Mean Platelet Volume 10.9 FL (9.5-12.2); Monocytes # (A) 0.62 X 10*3/uL (0.20-1.00); NRBC Per 100 WBC 0 X 10*3/uL (0.00-0.01); Neutrophils # (A) 3.55 X 10*3/uL (1.80-7.70); Neutrophils % (A) 56.9 %; Platelet Count 365 X 10*3/uL (140-440); RBC 4.22 X 10*6/uL (4.10-5.20); RDW 13.4 % (11.5-14.5); WBC 6.23 X 10*3/uL (4.50-10.00)
[2024-11-05 18:46] LABS: Erythrocyte Sedimentation Rate 36 mm/Hr (0-30)
[2024-11-05 18:51] LABS: ALT 16 U/L (8-44); AST 26 U/L (13-35); Albumin 3.9 g/dL (3.8-4.9); Albumin/Globulin Ratio 1.34 Ratio (1.60-3.17); Alkaline Phosphatase 107 U/L (41-126); BUN/Creat Ratio 16.83 Ratio (12.00-20.00); Blood Urea Nitrogen 10.1 mg/dL (9.0-27.0); Calcium 8.7 mg/dL (8.7-10.3); Carbon Dioxide 27.5 mmol/L (21.6-31.8); Chloride 101 mmol/L (96-109); Globulin 2.9 g/dL (1.6-3.3); Glucose 76 mg/dL (70-110); Potassium 3.9 mmol/L (3.5-5.5); Sodium 139 mmol/L (135-145); Total Bilirubin <0.2 mg/dL (0.3-1.2); Total Protein 6.8 g/dL (6.2-8.2)
== END | disposition home or self-care (01) ==
LOC: LABWHC1 15:28
PROVIDERS: ATTEND Internal Medicine Infectious Disease
DX: B39.1 Chronic pulmonary histoplasmosis capsulati (principal)
CPT/HCPCS: 36415; 80053; 80299; 85025; 85652; 86140

== ENCOUNTER → 2025-02-01 | Outpatient (CLI) | payer BC ==
--- NOTE | 2025-02-01 13:30 | CT ---
EXAMINATION TYPE: CT chest w con DATE OF EXAM: 02/01/2025 12:38 PM COMPARISON: None. CLINICAL INDICATION: Female, 64 years old with history of Z86.19 PERSONAL HISTORY OF OTHER INFECTIOUS AND PA, check for histoplasmosis TECHNIQUE: Axial images were obtained at 5 mm thick sections. Reconstructed images are reviewed on [employer] computer in the coronal plane. Contrast used:100ml mL of Isovue 300 with IV Contrast, (none if empty) Oral contrast used: (none if empty) CT DLP: 299.10 mGycm, Automated exposure control for dose reduction was used. FINDINGS: There is a 1.2 cm uterine spiculated density at the left apex. Series 4 image 9. There is a 1.2 cm nodular density in the posterior medial left upper lung field. Series 4 image 16. There is vague peripheral increased lung markings. Findings are not typical for histoplasmosis. There is a prominent right hilar node measuring 1.2 cm. Pretracheal lymph node is enlarged measuring 1.7 cm. There is a prominent 1.2 cm lymph node in the left infrahilar region. The ascending aorta diameter at the level of the main pulmonary artery is 3.2 cm. The main pulmona ry artery diameter at the bifurcation is 3.1 cm. No significant coronary artery calcifications. Limited CT sections are obtained through the upper abdomen. Several hepatic cysts are present. A sple carmen cyst is present. IMPRESSION: 1. Suspicious nodules left upper lung field. 2. Enlarged mediastinal adenopathy. 3. Recommend PET/CT for additional workup. [facility], , 02/01/2025 1:27 PM
== END | disposition home or self-care (01) ==
LOC: RADCTMAIN 12:10
PROVIDERS: ATTEND Internal Medicine Critical Care Medicine
DX: R59.0 Localized enlarged lymph nodes (principal); Z86.19 Personal history of other infectious and parasitic diseases
CPT/HCPCS: 71260; Q9967

== ENCOUNTER → 2025-02-04 | Outpatient (CLI) | payer BC ==
--- NOTE | 2025-02-04 13:21 | US ---
EXAMINATION TYPE: US venous doppler duplex LE DATE OF EXAM: 02/04/2025 1:13 PM COMPARISON: Left lower extremity venous ultrasound 12/09/2020 CLINICAL INDICATION: Female, 64 years old with history of I80.9 PHLEBITIS AND THROMBOPHLEBITIS; left knee pain TECHNIQUE: The lower extremity deep venous system is examined utilizing real time linear array sonog noam with graded compression, doppler sonography and color-flow sonography. Grayscale, color doppler , spectral doppler imaging performed of the deep veins of the lower extremities FINDINGS: SIDE PERFORMED: Left VESSELS IMAGED: Common Femoral Vein Deep Femoral Vein Greater Saphenous Vein * Femoral Vein Popliteal Vein Small Saphenous Vein * Proximal Calf Veins (* superficial vessels) Left Leg: Negative for DVT; There is normal flow, compressibility, vascular waveforms. 2.9 x 1.7cm left popliteal fossa anechoic Bakers cyst Results called to Mak's office @ 115 IMPRESSION: 1. No evidence for deep vein thrombosis of the left lower extremity. 2. Left Kyle's cyst. [facility], , 02/04/2025 1:19 PM
== END | disposition home or self-care (01) ==
LOC: RADUSWWP 12:54
PROVIDERS: ATTEND Orthopaedic Surgery
DX: I80.9 Phlebitis and thrombophlebitis of unspecified site (principal); M94.262 Chondromalacia, left knee; M23.304 Other meniscus derangements, unspecified medial meniscus, left knee; M17.12 Unilateral primary osteoarthritis, left knee; M71.22 Synovial cyst of popliteal space [Baker], left knee